=== PATIENT | female | born 1930 | race African-American/Black ===

== ENCOUNTER 2017-03-26 18:51 | Inpatient (IN) | payer MEDICARE, OTHER ==
[~2017-03-26] VITALS: Ht 160 cm; Wt 49.4 kg
[~2017-03-26 18:51] MED LIST: AMLO10TA4 PO; Acetaminophen PO; CHOL10003 PO; CITA10TA8 PO; DIVA250T6 PO; DIVA500T17 PO; DOCU-109 PO; ESTR30CR VG; HYDR-971 PO; LATA2.5D3 OP; LEVE250T30 PO; LOPE1TAB4 PO; LOPE2TAB56 PO; MIRT15TA2 PO; MORP20SO PO; MULT-114 PO; OMEP20CA9 PO; ONDA4TAB10 PO; OXYC5TAB88 PO; POLY17PO29 PO; POTA10TA12 PO; PROAIR HFA8.5 GM IH; WARF2TAB7 PO
[2017-03-26] MEDS ORDERED: POTASSIUM CL 40MEQ IN 0.9%NACL 1,000 ML IV ONE (19:30)
[2017-03-26 20:08] LABS: BILIRUBIN,URINE NEGATIVE (NEG); GLUCOSE,URINE NEGATIVE (NEG); NITRITE,URINE POSITIVE (NEG); PH,URINE 8.5; PROTEIN,URINE 100 mg/dL (NEG-TRACE); UROBILINOGEN,URINE 0.2 mg/dL (0.2 mg/dL)
[2017-03-26 20:15] LABS: BACTERIA,URINE MANY /HPF (0-FEW); RBC,URINE 0 /HPF (0-2)
[2017-03-26 20:22] LABS: BASO % 0 % (0-3); EOS % 2 % (0-3); HEMATOCRIT 41.4 % (36.0-47.0); HEMOGLOBIN 13.2 g/dL (12.0-15.5); LYMPH # 1.8 x10^3/uL (1.0-4.8); LYMPH % 15 % (24-48); MEAN CORPUSCULAR HEMOGLOBIN 30 pg (25-35); MEAN CORPUSCULAR HGB CONC 32 g/dL (31-37); MEAN CORPUSCULAR VOLUME 95 fL (79-100); MONO % 8 % (0-9); NEUT % 75 % (31-73); PLATELET COUNT 412 x10^3/uL (140-400); RED BLOOD COUNT 4.37 x10^6/uL (3.50-5.40); RED CELL DISTRIBUTION WIDTH 18.2 % (11.5-14.5); WHITE BLOOD COUNT 12.5 x10^3/uL (4.0-11.0)
[2017-03-26 20:44] LABS: ALBUMIN 2.2 g/dL (3.4-5.0); ALBUMIN/GLOBULIN RATIO 0.4 (1.0-1.7); CALCIUM 9.2 mg/dL (8.5-10.1); CREATININE 1.6 mg/dL (0.6-1.0); GFR 36.8; TOTAL BILIRUBIN 0.2 mg/dL (0.2-1.0); TOTAL PROTEIN 7.3 g/dL (6.4-8.2)
[2017-03-26 20:48] LABS: POTASSIUM 2.9 mmol/L (3.5-5.1)
[2017-03-26] MEDS ORDERED: IV NORMAL SALINE 1000ML BAG 1,000 ML IV ONE (21:15)
[2017-03-26] MEDS: IV NORMAL SALINE 1000ML BAG 1,000 ML IV SCH (22:17)
[2017-03-26] MEDS ORDERED: ONDANSETRON PF 4 MG/2 ML VIAL. IV PRN (22:30)
[2017-03-26] MEDS ORDERED: ACETAMINOPHEN 325 MG TABLET. PO PRN (22:30)
--- NOTE | 2017-03-26 22:36 | PHYS DOC ---
Past Medical History Past Medical History: Anxiety, Asthma, Constipation, Dementia, GERD Past Surgical History: Other Additional Past Surgical Histo: UNKNOWN Alcohol Use: None Drug Use: None Adult General Chief Complaint Chief Complaint: ABNORMAL LABS HPI HPI Patient is a 86 year old female who was sent in by the nursing facility secondary to abnormal labs. Patient was sent in secondary to an elevated sodium and low potassium level. No other complaints were identified by the nursing facility. Patient has a history of dementia and is not communicative. Remainder of the patient's history and physical exam is unobtainable secondary to the patient's medical condition and dementia. Patient does not follow commands, does not answer questions, and offers no further information regarding her care. Review of systems: Unobtainable secondary to the patient's medical condition. Physical exam Constitutional: Cachectic contracted no acute distress, non-toxic appearance. HENT: Normocephalic, atraumatic, dry mucous membranes Eyes: PERRLA, EOMI, conjunctiva normal, no discharge. Neck: Normal range of motion, no tenderness, supple, no stridor. Cardiovascular:Heart rate regular rhythm, Lungs & Thorax: Bilateral breath sounds clear to auscultation Abdomen: Bowel sounds normal, soft, no tenderness, no masses, no pulsatile masses. Skin: Warm, dry, Back: No tenderness Extremities: , no edema. Neurologic: Not to be negative Psychologic: Flat affect Assessment and plan This is an 86-year-old female who presents here today secondary to abnormal labs. Patient was found to be in acute renal failure with a significantly elevated BUN/creatinine level. Patient's sodium level was significantly elevated at 167. Patient's potassium level was low and will cry repletion. While in the ER the patient was given 2 L normal saline included with it or 40 mg once of potassium chloride. Patient also started IV Rocephin secondary to what appears to be infected urine. Cultures and lactic acid of also been obtained. Case has been discussed with Dr. curiel who agrees on the plan to admit the patient. Current Medications Current Medications Current Medications Medications (Trade) Dose Ordered Sig/Aidee Start Time Stop Time Status Last Admin Dose Admin Acetaminophen (Tylenol) 650 mg PRN Q4HRS PRN 03/26/17 22:30 03/27/17 22:29 Ceftriaxone Sodium 50 ml @ 100 mls/hr 1X ONCE 03/26/17 21:15 03/26/17 21:44 DC 03/26/17 22:01 100 MLS/HR Ondansetron HCl (Zofran) 4 mg PRN Q8HRS PRN 03/26/17 22:30 03/27/17 22:29 Potassium Chloride/Sodium Chloride 1,000 ml @ 250 mls/hr 1X ONCE 03/26/17 19:30 03/26/17 23:29 03/26/17 22:01 250 MLS/HR Sodium Chloride 1,000 ml @ 100 mls/hr Q10H 03/26/17 22:17 03/27/17 22:16 Allergies Allergies Allergies Coded Allergies Type Severity Reaction Last Updated Verified I S O L A T I O N *CONTACT* Allergy Unknown 04/01/15 Yes No Known Medication Allergies Allergy Unknown 04/01/15 Yes Current Patient Data Vital Signs Vital Signs Date Time Temp Pulse Resp B/P (MAP) Pulse Ox O2 Delivery O2 Flow Rate FiO2 03/26/17 21:56 100 135/90 (105) 100 Room Air 03/26/17 18:58 97.8 22 97.8 Lab Values Laboratory Tests Test 03/26/17 19:55 03/26/17 20:15 Urine Collection Type Unknown Urine Color Yellow Urine Clarity Turbid Urine pH 8.5 Urine Specific [place] 1.020 Urine Protein 100 mg/dL (NEG-TRACE) Urine Glucose (UA) Negative mg/dL (NEG) Urine Ketones (Stick) Negative mg/dL (NEG) Urine Blood Small (NEG) Urine Nitrite Positive (NEG) Urine Bilirubin Negative (NEG) Urine Urobilinogen Dipstick 0.2 mg/dL (0.2 mg/dL) Urine Leukocyte Esterase Large (NEG) Urine RBC 0 /HPF (0-2) Urine WBC 11-20 /HPF (0-4) Urine Amorphous Sediment Present /HPF Urine Bacteria Many /HPF (0-FEW) White Blood Count 12.5 x10^3/uL (4.0-11.0) H Red Blood Count 4.37 x10^6/uL (3.50-5.40) Hemoglobin 13.2 g/dL (12.0-15.5) Hematocrit 41.4 % (36.0-47.0) Mean Corpuscular Volume 95 fL (79-100) Mean Corpuscular Hemoglobin 30 pg (25-35) Mean Corpuscular Hemoglobin Concent 32 g/dL (31-37) Red Cell Distribution Width 18.2 % (11.5-14.5) H Platelet Count 412 x10^3/uL (140-400) H Neutrophils (%) (Auto) 75 % (31-73) H Lymphocytes (%) (Auto) 15 % (24-48) L Monocytes (%) (Auto) 8 % (0-9) Eosinophils (%) (Auto) 2 % (0-3) Basophils (%) (Auto) 0 % (0-3) Neutrophils # (Auto) 9.4 x10^3uL (1.8-7.7) H Lymphocytes # (Auto) 1.8 x10^3/uL (1.0-4.8) Monocytes # (Auto) 1.0 x10^3/uL (0.0-1.1) Eosinophils # (Auto) 0.2 x10^3/uL (0.0-0.7) Basophils # (Auto) 0.0 x10^3/uL (0.0-0.2) Sodium Level 167 mmol/L (136-145) *H Potassium Level 2.9 mmol/L (3.5-5.1) *L Chloride Level 128 mmol/L (98-107) H Carbon Dioxide Level 23 mmol/L (21-32) Anion Gap 16 (6-14) H Blood Urea Nitrogen 76 mg/dL (7-20) H Creatinine 1.6 mg/dL (0.6-1.0) H Estimated GFR (Cockcroft-Gault) 36.8 BUN/Creatinine Ratio 48 (6-20) H Glucose Level 116 mg/dL (70-99) H Calcium Level 9.2 mg/dL (8.5-10.1) Total Bilirubin 0.2 mg/dL (0.2-1.0) Aspartate Amino Transferase (AST) 19 U/L (15-37) Alanine Aminotransferase (ALT) 13 U/L (14-59) L Alkaline Phosphatase 94 U/L (46-116) Total Protein 7.3 g/dL (6.4-8.2) Albumin 2.2 g/dL (3.4-5.0) L Albumin/Globulin Ratio 0.4 (1.0-1.7) L Laboratory Tests 03/26/17 20:15 Laboratory Tests 03/26/17 20:15 EKG EKG [] Radiology/Procedures Radiology/Procedures [] Course & Med Decision Making Course & Med Decision Making Pertinent Labs and Imaging studies reviewed. (See chart for details) [] Dragon Disclaimer Dragon Disclaimer This electronic medical record was generated, in whole or in part, using a voice recognition dictation system. Departure Departure Impression: Primary Impression: UTI (urinary tract infection) Additional Impressions: Altered mental status Sepsis Hypernatremia Hypokalemia Disposition: 09 ADMITTED INPATIENT Admitting Physician: Sary Ramesh Condition: GUARDED Referrals: SARY RAMESH MD (PCP) Problem Qualifiers NIVIA DEJESUS MD Mar 26, 2017 22:36
[2017-03-27] VITALS (7 sets, daily range): BP systolic 78–147; BP diastolic 64–90
[2017-03-27] MEDS ORDERED: IV NORMAL SALINE 1000ML BAG 500 ML IV ONE (01:15)
[2017-03-27] MEDS ORDERED: NORMAL SALINE IV ONE (01:30)
[2017-03-27] MEDS ORDERED: PNEUMOCOCCAL VAX SCREEN BY RX. MC PRN (02:30)
[2017-03-27] MEDS: IV NORMAL SALINE 1000ML BAG 1,000 ML IV SCH ×2 (05:47→12:41)
--- NOTE | 2017-03-27 09:05 | RAD ---
Portable chest, 03/26/2017: History: Hypernatremia Comparison is made to a study from 03/29/2015. The patient is rotated to the right. The heart size and pulmonary vascularity are normal. There is tortuosity of the thoracic aorta. No pulmonary infiltrates are seen. There is a small nodule projected over the left lower chest laterally. This may be a pulmonary nodule or a nipple shadow. There is no evidence of pleural fluid. IMPRESSION: 1. Possible left basilar pulmonary nodule. Follow-up PA and lateral chest radiographs with nipple markers or CT scanning is suggested. 2. No acute cardiopulmonary abnormality is detected. Note: The findings were called to personnel in the [facility] ER at 9:00 AM on 03/27/2017.
--- NOTE | 2017-03-27 09:07 | EKG ---
[facility] [address] [place] [address] Test Date: 2017-03-27 Test Time: 08:40:18 Pat Name: BYRON GRULLON Department: Room: 578 1 Gender: F Film Waxer: LYNDON : 1930 Requested By: CHERRI LAURENT Order Number: [id number] Reading MD: Jerald Quintero MD Measurements Intervals Girdler Rate: 83 P: WV: QRS: 36 QRSD: 72 T: 33 QT: 394 QTc: 464 Interpretive Statements SUSPECT SINUS RHYTHM NON-SPECIFIC ST/T CHANGES Electronically Signed On 03-27-2017 15:32:51 RECOVERY COLLECTOR by Jerald Quintero MD
[2017-03-27] MEDS ORDERED: POTASSIUM CHLORIDE 40 MEQ in IV NORMAL SALINE 1000ML BAG 1,000 ML IV SCH (09:15)
[2017-03-27] MEDS ORDERED: ACETAMINOPHEN 325 MG TABLET. PO PRN (09:15)
[2017-03-27] MEDS ORDERED: ONDANSETRON PF 4 MG/2 ML VIAL. IV PRN (09:15)
--- NOTE | 2017-03-27 09:27 | PDOC1 ---
MYA TOVAR INTERNAL SECURITY MANAGER 03/27/17 0926: HISTORY AND PHYSICAL Chief Complaint Chief Complaint This 86 year old female has been admitted with a chief complaint of altered mental status. She is a poor historian therefore staff at [facility] was contacted for HPI. The nurse reports Jillian had been having altered mental status and weakness since Sunday. She was given IVF and her mental status improved to baseline and she began eating/drinking. Once the fluids stopped her MS would again decline and she would stop eating. Labs were obtained at the facility with Na 164, K 3.6, BUN 64, Cr 1.2, and WBC 11.1. She was transported to [facility] ED for evaluation. Labs in the ED: Na 167, K 2.9, BUN 76, Cr 1.6, LA 2.3 and UA + Nitrite. IVF were given per sepsis protocol and potassium replacement in the IVF. The last LA was 2.1. Rocephin IV was initiated for the UTI. She is admitted to a medical surgical floor for ongoing evaluation and treatment. Problem List Problems Medical Problems: (1) Altered mental status Status: Acute (2) Hypernatremia Status: Acute (3) Hypokalemia Status: Acute (4) Sepsis Status: Acute (5) UTI (urinary tract infection) Status: Acute Past Medical History Cardiovascular: HTN, Hyperlipidemia, Other (PVD ) Pulmonary: COPD CENTRAL NERVOUS SYSTEM: Dementia (Alzhiemer), Periperal neuropathy, Seizure GI: Constipation, GERD Psych: Bipolar, Depression Musculoskeletal: Osteoarthritis ENT: Other (glaucoma ) Renal/: Chronic renal insuff (CKD II ), Other (chronic keys for urinary retention ) Endocrine: Other (chronic moderate PCL malnutrition ) Past Surgical History Past Surgical History: Hysterectomy Past Family History [facility] resides at [facility]. No h/o tobacco, ETOH, or illicit drug use. Past Social History [facility] resides at [facility]. No h/o tobacco, ETOH, or illicit drug use. Review of Symptoms Review of Symptoms A 14 point ROS was completed with the following noted as positive: unable to obtain Other systems reviewed and negative. Medications Medications reviewed and reconciled. Allergy Allergies Coded Allergies Type Severity Reaction Last Updated Verified I S O L A T I O N *CONTACT* Allergy Unknown 04/01/15 Yes No Known Medication Allergies Allergy Unknown 04/01/15 Yes Physical Exam Physical Exam General appearance - minimally responsive, ill appearing, and in no distress Mental Status - minimally responsive, will arouse to name Head - normal Chest - clear to auscultation, no wheezes, rales or rhonchi, symmetric air entry Heart - S1 and S2 normal Abdomen - soft, nontender, nondistended, BS+ Neurological - minimally responsove Musculoskeletal - no muscular tenderness noted Extremities - no pedal edema Skin - warm and dry VTE Prophylaxis Ordered VTE Prophylaxis Devices: Yes VTE Pharmacological Prophylaxi: No Assessment Labs Laboratory Tests Test 03/26/17 19:55 03/26/17 20:15 03/26/17 22:15 03/27/17 05:00 Urine Collection Type Unknown Urine Color Yellow Urine Clarity Turbid Urine pH 8.5 Urine Specific [place] 1.020 Urine Protein 100 mg/dL (NEG-TRACE) Urine Glucose (UA) Negative mg/dL (NEG) Urine Ketones (Stick) Negative mg/dL (NEG) Urine Blood Small (NEG) Urine Nitrite Positive (NEG) Urine Bilirubin Negative (NEG) Urine Urobilinogen Dipstick 0.2 mg/dL (0.2 mg/dL) Urine Leukocyte Esterase Large (NEG) Urine RBC 0 /HPF (0-2) Urine WBC 11-20 /HPF (0-4) Urine Amorphous Sediment Present /HPF Urine Bacteria Many /HPF (0-FEW) White Blood Count 12.5 x10^3/uL (4.0-11.0) Red Blood Count 4.37 x10^6/uL (3.50-5.40) Hemoglobin 13.2 g/dL (12.0-15.5) Hematocrit 41.4 % (36.0-47.0) Mean Corpuscular Volume 95 fL (79-100) Mean Corpuscular Hemoglobin 30 pg (25-35) Mean Corpuscular Hemoglobin Concent 32 g/dL (31-37) Red Cell Distribution Width 18.2 % (11.5-14.5) Platelet Count 412 x10^3/uL (140-400) Neutrophils (%) (Auto) 75 % (31-73) Lymphocytes (%) (Auto) 15 % (24-48) Monocytes (%) (Auto) 8 % (0-9) Eosinophils (%) (Auto) 2 % (0-3) Basophils (%) (Auto) 0 % (0-3) Neutrophils # (Auto) 9.4 x10^3uL (1.8-7.7) Lymphocytes # (Auto) 1.8 x10^3/uL (1.0-4.8) Monocytes # (Auto) 1.0 x10^3/uL (0.0-1.1) Eosinophils # (Auto) 0.2 x10^3/uL (0.0-0.7) Basophils # (Auto) 0.0 x10^3/uL (0.0-0.2) Sodium Level 167 mmol/L (136-145) Potassium Level 2.9 mmol/L (3.5-5.1) Chloride Level 128 mmol/L (98-107) Carbon Dioxide Level 23 mmol/L (21-32) Anion Gap 16 (6-14) Blood Urea Nitrogen 76 mg/dL (7-20) Creatinine 1.6 mg/dL (0.6-1.0) Estimated GFR (Cockcroft-Gault) 36.8 BUN/Creatinine Ratio 48 (6-20) Glucose Level 116 mg/dL (70-99) Calcium Level 9.2 mg/dL (8.5-10.1) Total Bilirubin 0.2 mg/dL (0.2-1.0) Aspartate Amino Transf (AST/SGOT) 19 U/L (15-37) Alanine Aminotransferase (ALT/SGPT) 13 U/L (14-59) Alkaline Phosphatase 94 U/L (46-116) Total Protein 7.3 g/dL (6.4-8.2) Albumin 2.2 g/dL (3.4-5.0) Albumin/Globulin Ratio 0.4 (1.0-1.7) Lactic Acid Level 2.3 mmol/L (0.4-2.0) 2.1 mmol/L (0.4-2.0) Laboratory Tests Test 03/26/17 19:55 03/26/17 20:15 03/26/17 22:15 03/27/17 05:00 Urine Collection Type Unknown Urine Color Yellow Urine Clarity Turbid Urine pH 8.5 Urine Specific [place] 1.020 Urine Protein 100 mg/dL (NEG-TRACE) Urine Glucose (UA) Negative mg/dL (NEG) Urine Ketones (Stick) Negative mg/dL (NEG) Urine Blood Small (NEG) Urine Nitrite Positive (NEG) Urine Bilirubin Negative (NEG) Urine Urobilinogen Dipstick 0.2 mg/dL (0.2 mg/dL) Urine Leukocyte Esterase Large (NEG) Urine RBC 0 /HPF (0-2) Urine WBC 11-20 /HPF (0-4) Urine Amorphous Sediment Present /HPF Urine Bacteria Many /HPF (0-FEW) White Blood Count 12.5 x10^3/uL (4.0-11.0) Red Blood Count 4.37 x10^6/uL (3.50-5.40) Hemoglobin 13.2 g/dL (12.0-15.5) Hematocrit 41.4 % (36.0-47.0) Mean Corpuscular Volume 95 fL (79-100) Mean Corpuscular Hemoglobin 30 pg (25-35) Mean Corpuscular Hemoglobin Concent 32 g/dL (31-37) Red Cell Distribution Width 18.2 % (11.5-14.5) Platelet Count 412 x10^3/uL (140-400) Neutrophils (%) (Auto) 75 % (31-73) Lymphocytes (%) (Auto) 15 % (24-48) Monocytes (%) (Auto) 8 % (0-9) Eosinophils (%) (Auto) 2 % (0-3) Basophils (%) (Auto) 0 % (0-3) Neutrophils # (Auto) 9.4 x10^3uL (1.8-7.7) Lymphocytes # (Auto) 1.8 x10^3/uL (1.0-4.8) Monocytes # (Auto) 1.0 x10^3/uL (0.0-1.1) Eosinophils # (Auto) 0.2 x10^3/uL (0.0-0.7) Basophils # (Auto) 0.0 x10^3/uL (0.0-0.2) Sodium Level 167 mmol/L (136-145) Potassium Level 2.9 mmol/L (3.5-5.1) Chloride Level 128 mmol/L (98-107) Carbon Dioxide Level 23 mmol/L (21-32) Anion Gap 16 (6-14) Blood Urea Nitrogen 76 mg/dL (7-20) Creatinine 1.6 mg/dL (0.6-1.0) Estimated GFR (Cockcroft-Gault) 36.8 BUN/Creatinine Ratio 48 (6-20) Glucose Level 116 mg/dL (70-99) Calcium Level 9.2 mg/dL (8.5-10.1) Total Bilirubin 0.2 mg/dL (0.2-1.0) Aspartate Amino Transf (AST/SGOT) 19 U/L (15-37) Alanine Aminotransferase (ALT/SGPT) 13 U/L (14-59) Alkaline Phosphatase 94 U/L (46-116) Total Protein 7.3 g/dL (6.4-8.2) Albumin 2.2 g/dL (3.4-5.0) Albumin/Globulin Ratio 0.4 (1.0-1.7) Lactic Acid Level 2.3 mmol/L (0.4-2.0) 2.1 mmol/L (0.4-2.0) Plan Plan 1. UTI complicated/sepsis with h/o chronic keys for urine retention 2. acute metabolic encephalopathy with underlying Alzheimer dementia 3. ARF JOCELYNE VMN dehydration with underlying CKD II 4. acute hypernatremia 5. acute hypokalemia 6. HTN 7. Alzheimer dementia 8. urine retention with chronic indwelling keys 9. COPD 10. chronic moderate malnutrition 11. seizure disorder 12. GERD 13. Peripheral neuropathy 14. PVD 15. CKD II 16. OA generalized 17. anemia chronic disease 18. depression 19. hyperlipidemia 20. chronic constipation 21 h/o traumatic comminuted L femoral intratrochanteric neck fracture post traumatic fall 2014 no surgical intervention 22. severe PCL malnutrition with underlying chronic PCL malnutrition 23. severe weakness and debility 24. dysphagia with Regular diet mechanical soft chopped texture thin liquids PLAN UTI/sepsis - Admit WBC 12.5 - LA 2.3 decreased to 2.1 - Rocephin IV daily - ID consult - CBC pending ARF - IV NS in ED - decreased to NS 100cc/hr acute hypernatremia/hypokalemia - Admit NA 167 K 2.9 - NS IV - 40K per IVF x 1 - BMP pending - current IV NS 100cc/hr and 40KCL added - nephrology consult acute encephalopathy due to ARF/UTI chronic urine retention with chronic indwell keys - continue -changed in ER malnutrition - clear liquids - advance diet as tolerated seizure - keppra and depakote changed to IV. DVT/GI prophylaxis - SCD/CAITLIN Pepcid For more details regarding further plans, please refer to the orders. Medications obtained from [facility]- to be entered by staff and will restart oral meds as indicated SARY RAMESH MD 03/27/17 1134: HISTORY AND PHYSICAL Plan Plan Confused,non verbal. D/w . The patient was seen and examined by me. Chart reviewed and plan of care formulated. Discussed with, reviewed and agree with PHARMACY CUSTOMER CARE SPECIALIST's notes, plan of care and orders with modifications as necessary. For more details regarding further plans, please refer to the orders. MYA TOVAR APRN Mar 27, 2017 09:26 SARY RAMESH MD Mar 27, 2017 11:34
[2017-03-27] MEDS ORDERED: POTASSIUM CL 40MEQ IN 0.9%NACL 1,000 ML IV SCH (09:30)
[2017-03-27 10:16] LABS: BASO % 0 % (0-3); CREATININE 1.1 mg/dL (0.6-1.0); EOS % 0 % (0-3); GFR 56.7; HEMATOCRIT 34.4 % (36.0-47.0); HEMOGLOBIN 10.9 g/dL (12.0-15.5); LYMPH # 1.9 x10^3/uL (1.0-4.8); LYMPH % 16 % (24-48); MAGNESIUM 2.4 mg/dL (1.8-2.4); MEAN CORPUSCULAR HEMOGLOBIN 31 pg (25-35); MEAN CORPUSCULAR HGB CONC 32 g/dL (31-37); MEAN CORPUSCULAR VOLUME 96 fL (79-100); MONO % 12 % (0-9); NEUT % 71 % (31-73); PLATELET COUNT 306 x10^3/uL (140-400); POTASSIUM 3.2 mmol/L (3.5-5.1); RED BLOOD COUNT 3.58 x10^6/uL (3.50-5.40); RED CELL DISTRIBUTION WIDTH 18.4 % (11.5-14.5); WHITE BLOOD COUNT 11.8 x10^3/uL (4.0-11.0)
--- NOTE | 2017-03-27 11:27 | PDOC ---
Infectious Disease Note ROS ROS Vital Sign Vital Signs Vital Signs Date Time Temp Pulse Resp B/P (MAP) Pulse Ox O2 Delivery O2 Flow Rate FiO2 03/27/17 07:00 97.8 80 18 78/ 97 Room Air 97.8 Labs Lab Laboratory Tests Test 03/26/17 19:55 03/26/17 20:15 03/26/17 22:15 03/27/17 05:00 Urine Collection Type Unknown Urine Color Yellow Urine Clarity Turbid Urine pH 8.5 Urine Specific [place] 1.020 Urine Protein 100 mg/dL (NEG-TRACE) Urine Glucose (UA) Negative mg/dL (NEG) Urine Ketones (Stick) Negative mg/dL (NEG) Urine Blood Small (NEG) Urine Nitrite Positive (NEG) Urine Bilirubin Negative (NEG) Urine Urobilinogen Dipstick 0.2 mg/dL (0.2 mg/dL) Urine Leukocyte Esterase Large (NEG) Urine RBC 0 /HPF (0-2) Urine WBC 11-20 /HPF (0-4) Urine Amorphous Sediment Present /HPF Urine Bacteria Many /HPF (0-FEW) White Blood Count 12.5 x10^3/uL (4.0-11.0) Red Blood Count 4.37 x10^6/uL (3.50-5.40) Hemoglobin 13.2 g/dL (12.0-15.5) Hematocrit 41.4 % (36.0-47.0) Mean Corpuscular Volume 95 fL (79-100) Mean Corpuscular Hemoglobin 30 pg (25-35) Mean Corpuscular Hemoglobin Concent 32 g/dL (31-37) Red Cell Distribution Width 18.2 % (11.5-14.5) Platelet Count 412 x10^3/uL (140-400) Neutrophils (%) (Auto) 75 % (31-73) Lymphocytes (%) (Auto) 15 % (24-48) Monocytes (%) (Auto) 8 % (0-9) Eosinophils (%) (Auto) 2 % (0-3) Basophils (%) (Auto) 0 % (0-3) Neutrophils # (Auto) 9.4 x10^3uL (1.8-7.7) Lymphocytes # (Auto) 1.8 x10^3/uL (1.0-4.8) Monocytes # (Auto) 1.0 x10^3/uL (0.0-1.1) Eosinophils # (Auto) 0.2 x10^3/uL (0.0-0.7) Basophils # (Auto) 0.0 x10^3/uL (0.0-0.2) Sodium Level 167 mmol/L (136-145) Potassium Level 2.9 mmol/L (3.5-5.1) Chloride Level 128 mmol/L (98-107) Carbon Dioxide Level 23 mmol/L (21-32) Anion Gap 16 (6-14) Blood Urea Nitrogen 76 mg/dL (7-20) Creatinine 1.6 mg/dL (0.6-1.0) Estimated GFR (Cockcroft-Gault) 36.8 BUN/Creatinine Ratio 48 (6-20) Glucose Level 116 mg/dL (70-99) Calcium Level 9.2 mg/dL (8.5-10.1) Total Bilirubin 0.2 mg/dL (0.2-1.0) Aspartate Amino Transf (AST/SGOT) 19 U/L (15-37) Alanine Aminotransferase (ALT/SGPT) 13 U/L (14-59) Alkaline Phosphatase 94 U/L (46-116) Total Protein 7.3 g/dL (6.4-8.2) Albumin 2.2 g/dL (3.4-5.0) Albumin/Globulin Ratio 0.4 (1.0-1.7) Lactic Acid Level 2.3 mmol/L (0.4-2.0) 2.1 mmol/L (0.4-2.0) Test 03/27/17 09:40 White Blood Count 11.8 x10^3/uL (4.0-11.0) Red Blood Count 3.58 x10^6/uL (3.50-5.40) Hemoglobin 10.9 g/dL (12.0-15.5) Hematocrit 34.4 % (36.0-47.0) Mean Corpuscular Volume 96 fL (79-100) Mean Corpuscular Hemoglobin 31 pg (25-35) Mean Corpuscular Hemoglobin Concent 32 g/dL (31-37) Red Cell Distribution Width 18.4 % (11.5-14.5) Platelet Count 306 x10^3/uL (140-400) Neutrophils (%) (Auto) 71 % (31-73) Lymphocytes (%) (Auto) 16 % (24-48) Monocytes (%) (Auto) 12 % (0-9) Eosinophils (%) (Auto) 0 % (0-3) Basophils (%) (Auto) 0 % (0-3) Neutrophils # (Auto) 8.4 x10^3uL (1.8-7.7) Lymphocytes # (Auto) 1.9 x10^3/uL (1.0-4.8) Monocytes # (Auto) 1.5 x10^3/uL (0.0-1.1) Eosinophils # (Auto) 0.0 x10^3/uL (0.0-0.7) Basophils # (Auto) 0.0 x10^3/uL (0.0-0.2) Sodium Level 171 mmol/L (136-145) Potassium Level 3.2 mmol/L (3.5-5.1) Chloride Level 139 mmol/L (98-107) Carbon Dioxide Level 21 mmol/L (21-32) Anion Gap 11 (6-14) Blood Urea Nitrogen 62 mg/dL (7-20) Creatinine 1.1 mg/dL (0.6-1.0) Estimated GFR (Cockcroft-Gault) 56.7 Glucose Level 81 mg/dL (70-99) Calcium Level 8.0 mg/dL (8.5-10.1) Magnesium Level 2.4 mg/dL (1.8-2.4) Objective Assessment Complicated UTI - POA 03/26 Leukocytosis Acute Encephalopathy JOCELYNE Hypernatremia H/o seizures H/o MRSA Plan Plan of Care Change to Zosyn F/u labs and cults D/w / Tj Thank you # [phone] KELI SALINAS MD Mar 27, 2017 11:27
[2017-03-27] MEDS: FAMOTIDINE 20 MG/2 ML VIAL IVP SCH (11:34)
--- NOTE | 2017-03-27 11:58 | PDOC2 ---
CONSULT Date of Consult Date of Consult DATE: 03/27/17 TIME: 11:53 Reason for Consult Reason for Consult: RENAL FAILURE Referring Physician Referring Physician: GADIEL Identification/Chief Complaint Chief Complaint CONFUSION Problems: Source Source: Chart review History of Present Illness Reason for Visit: THIS IS AN 86 YR OLD WITH WORSENING CONFUSION. SHE HAS NOT BEEN EATING WELL. SHE IS AT HER NH AND TRANSFERRED HERE FOR THIS. SHE IS NOTED TO HAVE JOCELYNE AND HYPERNATREMIA ALONG WITH AN UTI AND POSSIBLE SEPSIS. SHE HAS A HX OF URINARY RETENTION AND CHRONIC KEYS NEED. SHE CANNOT GIVE ANY HX. SHE HAS ACUTE CONFUSION ATOP HER UNDERLYING DEMENTIA. NO CKD NOTED IN OLD RECORDS. CR IS 1.6 Past Medical History Cardiovascular: HTN, Hyperlipidemia, Other (PVD ) Pulmonary: COPD CENTRAL NERVOUS SYSTEM: Dementia (Alzhiemer), Periperal neuropathy, Seizure GI: Constipation, GERD Psych: Bipolar, Depression Musculoskeletal: Osteoarthritis ENT: Other (glaucoma ) Renal/: Other (chronic keys for urinary retention ) Endocrine: Other (chronic moderate PCL malnutrition ) Past Surgical History Past Surgical History: Hysterectomy Current Problem List Problem List Problems Medical Problems: (1) Altered mental status Status: Acute (2) Hypernatremia Status: Acute (3) Hypokalemia Status: Acute (4) Sepsis Status: Acute (5) UTI (urinary tract infection) Status: Acute Current Medications Current Medications Current Medications Potassium Chloride/Sodium Chloride 1,000 ml @ 250 mls/hr 1X ONCE IV Last administered on 03/26/17 22:01; Start 03/26/17 at 19:30; Stop 03/26/17 at 23 :29; Status DC Sodium Chloride 1,000 ml @ 1,000 mls/hr 1X ONCE IV Last administered on 03/26 22:01; Start 03/26/17 at 21:15; Stop 03/26/17 at 22:14; Status DC Ceftriaxone Sodium 50 ml @ 100 mls/hr 1X ONCE IV Last administered on 22:01; Start 03/26/17 at 21:15; Stop 03/26/17 at 21:44; Status DC Ondansetron HCl (Zofran) 4 mg PRN Q8HRS PRN IV NAUSEA/VOMITING; Start at 22:30; Stop 03/27/17 at 09:15; Status DC Sodium Chloride 1,000 ml @ 100 mls/hr Q10H IV Last administered on 03/27/17 05:47; Start 03/26/17 at 22:17; Stop 03/27/17 at 09:15; Status DC Acetaminophen (Tylenol) 650 mg PRN Q4HRS PRN PO FEVER; Start 03/26/17 at 22:30 ; Stop 03/27/17 at 09:15; Status DC Sodium Chloride 500 ml @ 390 mls/hr 1X ONCE IV ; Start 03/27/17 at 01:15; Stop 03/27/17 at 02:31; Status DC Sodium Chloride 390 ml @ 390 mls/hr 1X ONCE IV Last administered on 01:12; Start 03/27/17 at 01:30; Stop 03/27/17 at 02:29; Status DC Pneumococcal Polyvalent Vaccine (Do NOT chart on this placeholder) 1 each PRN DAILY PRN [facility] UNABLE TO RESPOND; Start 03/27/17 at 02:30 Potassium Chloride 40 meq/ Sodium Chloride 1,020 ml @ 100 mls/hr [id number] IV ; Start 03/27/17 at 09:15; Status UNV Ondansetron HCl (Zofran) 4 mg PRN Q8HRS PRN IV NAUSEA/VOMITING; Start at 09:15 Acetaminophen (Tylenol) 650 mg PRN Q4HRS PRN PO FEVER; Start 03/27/17 at 09:15 Potassium Chloride/Sodium Chloride 1,000 ml @ 100 mls/hr Q10H IV Last administered on 03/27/17 11:35; Start 03/27/17 at 09:30 Levetiracetam 250 mg/Sodium Chloride 102.5 ml @ 420 mls/hr Q12HR IV Last administered on 03/27/17 10:15; Start 03/27/17 at 10:30 Valproic Acid 1000 mg/Sodium Chloride 60 ml @ 55 mls/hr Q6HRS IV ; Start at 12:00 Famotidine (Pepcid Vial) 20 mg DAILY IVP Last administered on 03/27/17 11:34 ; Start 03/27/17 at 10:30 Latanoprost (Xalatan) 1 drop QHS OU ; Start 03/27/17 at 21:00 Piperacillin Sod/ Tazobactam Sod 2.25 gm/Dextrose 50 ml @ 100 mls/hr Q6HRS IV ; Start 03/27/17 at 12:00; Status UNV Piperacillin Sod/ Tazobactam Sod (Zosyn) 2.25 gm Q6HRS IVP ; Start 03/27/17 at 12:00 Active Scripts Active Omeprazole 20 Mg Capsule.dr 20 Mg PO DAILY Vitamin D3 (Cholecalciferol (Vitamin D3)) 1,000 Unit Tablet 1,000 Unit PO DAILY [Acetaminophen] 500 MG Tablet 500 Mg PO TID Warfarin Sodium 2 Mg Tablet 1 Tab PO DAILY Reported Keppra (Levetiracetam) 250 Mg Tablet 250 Mg PO BID Anti-Diarrhea (Loperamide Hcl) 2 Mg Tablet 2 Mg PO PRN DAILY PRN Imodium Multi-Symptom Rel Cplt (Loperamide Hcl/Simethicone) 1 Each Tablet 1 Each PO Divalproex Sodium 250 Mg Tablet.dr 250 Mg PO DAILY Divalproex Sodium Er (Divalproex Sodium) 500 Mg Tab.er.24h 2 Tab PO QHS Colace (Docusate Sodium) 100 Mg Capsule 1 Cap PO DAILY Celexa (Citalopram Hydrobromide) 10 Mg Tablet 1 Tab PO DAILY [place] 5-325 Tablet (Acetaminophen/Hydrocodone Bitart) 1 Each Tablet 1 Tab PO PRN Q12HR PRN Multivitamins With Minerals (Multivitamin With Minerals) 1 Each Tablet 1 Each PO DAILY Morphine Sulfate 20 Mg/5 Ml Solution 1 Ml PO PRN Q1HR PRN Morphine Sulfate 20 Mg/5 Ml Solution 0.75 Ml PO PRN Q1HR PRN Morphine Sulfate 20 Mg/5 Ml Solution 0.5 Ml PO PRN Q1HR PRN Morphine Sulfate 20 Mg/5 Ml Solution 0.25 Ml PO PRN Q1HR PRN Miralax (Polyethylene Glycol 3350) 17 Gm Powd.pack 1 Packet PO DAILY Latanoprost 2.5 Ml Drops 1 Drop OP HS Remeron (Mirtazapine) 15 Mg Tab.rapdis 15 Mg PO DAILY 1/2 tab Proair Hfa Inhaler (Albuterol Sulfate) 8.5 Gm Hfa.aer.ad 2 Puff IH BID Premarin (Estrogens, Conjugated) 30 Gm Cream.appl 1 Kyle VG QTH Premarin (Estrogens, Conjugated) 30 Gm Cream.appl 1 Kyle VG QTU Potassium Chloride 10 Meq Tablet.er 1 Tab PO DAILY Omeprazole 20 Mg Capsule.dr 20 Mg PO DAILY Norvasc (Amlodipine Besylate) 10 Mg Tablet 10 Mg PO DAILY [place] 5-325 Tablet (Acetaminophen/Hydrocodone Bitart) 1 Each Tablet 1 Tab PO QID Zofran Odt (Ondansetron) 4 Mg Tab.rapdis 4 Mg PO QIDPRN PRN Allergies Allergies: Coded Allergies: I S O L A T I O N *CONTACT* (Verified Allergy, Unknown, 04/01/15) mrsa + No Known Medication Allergies (Verified Allergy, Unknown, 04/01/15) ROS Review of System UNABLE TO OBTAIN Physical Exam General: Alert, Cooperative, No acute distress HEENT: Atraumatic, EOMI, Other (DRY MUCOSA) Heart: Regular rate, Normal S1, Normal S2 Abdomen: Normal bowel sounds, Soft, No tenderness Extremities: No clubbing, Other (DIFFUSE MUSCLE ATROPHY) Skin: No rashes, No significant lesion Neuro: Other (UNABLE TO COOPERATE) Psych/Mental Status: Other (CONFUSED BUT NO ASYMMETRY) MUSCULOSKELETAL: No joint tenderness, No swelling, No muscular tenderness noted , Osteoarthritic changes both hands Vitals VITALS Vital Signs Date Time Temp Pulse Resp B/P (MAP) Pulse Ox O2 Delivery O2 Flow Rate FiO2 03/27/17 07:00 97.8 80 18 78/ 97 Room Air 97.8 Labs Labs Laboratory Tests Test 03/26/17 19:55 03/26/17 20:15 03/26/17 22:15 03/27/17 05:00 Urine Collection Type Unknown Urine Color Yellow Urine Clarity Turbid Urine pH 8.5 Urine Specific [place] 1.020 Urine Protein 100 mg/dL (NEG-TRACE) Urine Glucose (UA) Negative mg/dL (NEG) Urine Ketones (Stick) Negative mg/dL (NEG) Urine Blood Small (NEG) Urine Nitrite Positive (NEG) Urine Bilirubin Negative (NEG) Urine Urobilinogen Dipstick 0.2 mg/dL (0.2 mg/dL) Urine Leukocyte Esterase Large (NEG) Urine RBC 0 /HPF (0-2) Urine WBC 11-20 /HPF (0-4) Urine Amorphous Sediment Present /HPF Urine Bacteria Many /HPF (0-FEW) White Blood Count 12.5 x10^3/uL (4.0-11.0) Red Blood Count 4.37 x10^6/uL (3.50-5.40) Hemoglobin 13.2 g/dL (12.0-15.5) Hematocrit 41.4 % (36.0-47.0) Mean Corpuscular Volume 95 fL (79-100) Mean Corpuscular Hemoglobin 30 pg (25-35) Mean Corpuscular Hemoglobin Concent 32 g/dL (31-37) Red Cell Distribution Width 18.2 % (11.5-14.5) Platelet Count 412 x10^3/uL (140-400) Neutrophils (%) (Auto) 75 % (31-73) Lymphocytes (%) (Auto) 15 % (24-48) Monocytes (%) (Auto) 8 % (0-9) Eosinophils (%) (Auto) 2 % (0-3) Basophils (%) (Auto) 0 % (0-3) Neutrophils # (Auto) 9.4 x10^3uL (1.8-7.7) Lymphocytes # (Auto) 1.8 x10^3/uL (1.0-4.8) Monocytes # (Auto) 1.0 x10^3/uL (0.0-1.1) Eosinophils # (Auto) 0.2 x10^3/uL (0.0-0.7) Basophils # (Auto) 0.0 x10^3/uL (0.0-0.2) Sodium Level 167 mmol/L (136-145) Potassium Level 2.9 mmol/L (3.5-5.1) Chloride Level 128 mmol/L (98-107) Carbon Dioxide Level 23 mmol/L (21-32) Anion Gap 16 (6-14) Blood Urea Nitrogen 76 mg/dL (7-20) Creatinine 1.6 mg/dL (0.6-1.0) Estimated GFR (Cockcroft-Gault) 36.8 BUN/Creatinine Ratio 48 (6-20) Glucose Level 116 mg/dL (70-99) Calcium Level 9.2 mg/dL (8.5-10.1) Total Bilirubin 0.2 mg/dL (0.2-1.0) Aspartate Amino Transf (AST/SGOT) 19 U/L (15-37) Alanine Aminotransferase (ALT/SGPT) 13 U/L (14-59) Alkaline Phosphatase 94 U/L (46-116) Total Protein 7.3 g/dL (6.4-8.2) Albumin 2.2 g/dL (3.4-5.0) Albumin/Globulin Ratio 0.4 (1.0-1.7) Lactic Acid Level 2.3 mmol/L (0.4-2.0) 2.1 mmol/L (0.4-2.0) Test 03/27/17 09:40 White Blood Count 11.8 x10^3/uL (4.0-11.0) Red Blood Count 3.58 x10^6/uL (3.50-5.40) Hemoglobin 10.9 g/dL (12.0-15.5) Hematocrit 34.4 % (36.0-47.0) Mean Corpuscular Volume 96 fL (79-100) Mean Corpuscular Hemoglobin 31 pg (25-35) Mean Corpuscular Hemoglobin Concent 32 g/dL (31-37) Red Cell Distribution Width 18.4 % (11.5-14.5) Platelet Count 306 x10^3/uL (140-400) Neutrophils (%) (Auto) 71 % (31-73) Lymphocytes (%) (Auto) 16 % (24-48) Monocytes (%) (Auto) 12 % (0-9) Eosinophils (%) (Auto) 0 % (0-3) Basophils (%) (Auto) 0 % (0-3) Neutrophils # (Auto) 8.4 x10^3uL (1.8-7.7) Lymphocytes # (Auto) 1.9 x10^3/uL (1.0-4.8) Monocytes # (Auto) 1.5 x10^3/uL (0.0-1.1) Eosinophils # (Auto) 0.0 x10^3/uL (0.0-0.7) Basophils # (Auto) 0.0 x10^3/uL (0.0-0.2) Sodium Level 171 mmol/L (136-145) Potassium Level 3.2 mmol/L (3.5-5.1) Chloride Level 139 mmol/L (98-107) Carbon Dioxide Level 21 mmol/L (21-32) Anion Gap 11 (6-14) Blood Urea Nitrogen 62 mg/dL (7-20) Creatinine 1.1 mg/dL (0.6-1.0) Estimated GFR (Cockcroft-Gault) 56.7 Glucose Level 81 mg/dL (70-99) Calcium Level 8.0 mg/dL (8.5-10.1) Magnesium Level 2.4 mg/dL (1.8-2.4) Laboratory Tests Test 03/26/17 19:55 03/26/17 20:15 03/26/17 22:15 03/27/17 05:00 Urine Collection Type Unknown Urine Color Yellow Urine Clarity Turbid Urine pH 8.5 Urine Specific [place] 1.020 Urine Protein 100 mg/dL (NEG-TRACE) Urine Glucose (UA) Negative mg/dL (NEG) Urine Ketones (Stick) Negative mg/dL (NEG) Urine Blood Small (NEG) Urine Nitrite Positive (NEG) Urine Bilirubin Negative (NEG) Urine Urobilinogen Dipstick 0.2 mg/dL (0.2 mg/dL) Urine Leukocyte Esterase Large (NEG) Urine RBC 0 /HPF (0-2) Urine WBC 11-20 /HPF (0-4) Urine Amorphous Sediment Present /HPF Urine Bacteria Many /HPF (0-FEW) White Blood Count 12.5 x10^3/uL (4.0-11.0) Red Blood Count 4.37 x10^6/uL (3.50-5.40) Hemoglobin 13.2 g/dL (12.0-15.5) Hematocrit 41.4 % (36.0-47.0) Mean Corpuscular Volume 95 fL (79-100) Mean Corpuscular Hemoglobin 30 pg (25-35) Mean Corpuscular Hemoglobin Concent 32 g/dL (31-37) Red Cell Distribution Width 18.2 % (11.5-14.5) Platelet Count 412 x10^3/uL (140-400) Neutrophils (%) (Auto) 75 % (31-73) Lymphocytes (%) (Auto) 15 % (24-48) Monocytes (%) (Auto) 8 % (0-9) Eosinophils (%) (Auto) 2 % (0-3) Basophils (%) (Auto) 0 % (0-3) Neutrophils # (Auto) 9.4 x10^3uL (1.8-7.7) Lymphocytes # (Auto) 1.8 x10^3/uL (1.0-4.8) Monocytes # (Auto) 1.0 x10^3/uL (0.0-1.1) Eosinophils # (Auto) 0.2 x10^3/uL (0.0-0.7) Basophils # (Auto) 0.0 x10^3/uL (0.0-0.2) Sodium Level 167 mmol/L (136-145) Potassium Level 2.9 mmol/L (3.5-5.1) Chloride Level 128 mmol/L (98-107) Carbon Dioxide Level 23 mmol/L (21-32) Anion Gap 16 (6-14) Blood Urea Nitrogen 76 mg/dL (7-20) Creatinine 1.6 mg/dL (0.6-1.0) Estimated GFR (Cockcroft-Gault) 36.8 BUN/Creatinine Ratio 48 (6-20) Glucose Level 116 mg/dL (70-99) Calcium Level 9.2 mg/dL (8.5-10.1) Total Bilirubin 0.2 mg/dL (0.2-1.0) Aspartate Amino Transf (AST/SGOT) 19 U/L (15-37) Alanine Aminotransferase (ALT/SGPT) 13 U/L (14-59) Alkaline Phosphatase 94 U/L (46-116) Total Protein 7.3 g/dL (6.4-8.2) Albumin 2.2 g/dL (3.4-5.0) Albumin/Globulin Ratio 0.4 (1.0-1.7) Lactic Acid Level 2.3 mmol/L (0.4-2.0) 2.1 mmol/L (0.4-2.0) Test 03/27/17 09:40 White Blood Count 11.8 x10^3/uL (4.0-11.0) Red Blood Count 3.58 x10^6/uL (3.50-5.40) Hemoglobin 10.9 g/dL (12.0-15.5) Hematocrit 34.4 % (36.0-47.0) Mean Corpuscular Volume 96 fL (79-100) Mean Corpuscular Hemoglobin 31 pg (25-35) Mean Corpuscular Hemoglobin Concent 32 g/dL (31-37) Red Cell Distribution Width 18.4 % (11.5-14.5) Platelet Count 306 x10^3/uL (140-400) Neutrophils (%) (Auto) 71 % (31-73) Lymphocytes (%) (Auto) 16 % (24-48) Monocytes (%) (Auto) 12 % (0-9) Eosinophils (%) (Auto) 0 % (0-3) Basophils (%) (Auto) 0 % (0-3) Neutrophils # (Auto) 8.4 x10^3uL (1.8-7.7) Lymphocytes # (Auto) 1.9 x10^3/uL (1.0-4.8) Monocytes # (Auto) 1.5 x10^3/uL (0.0-1.1) Eosinophils # (Auto) 0.0 x10^3/uL (0.0-0.7) Basophils # (Auto) 0.0 x10^3/uL (0.0-0.2) Sodium Level 171 mmol/L (136-145) Potassium Level 3.2 mmol/L (3.5-5.1) Chloride Level 139 mmol/L (98-107) Carbon Dioxide Level 21 mmol/L (21-32) Anion Gap 11 (6-14) Blood Urea Nitrogen 62 mg/dL (7-20) Creatinine 1.1 mg/dL (0.6-1.0) Estimated GFR (Cockcroft-Gault) 56.7 Glucose Level 81 mg/dL (70-99) Calcium Level 8.0 mg/dL (8.5-10.1) Magnesium Level 2.4 mg/dL (1.8-2.4) Assessment/Plan Assessment/Plan IMP JOCELYNE-VASOMOTOR DEHYDRATION HYPERNATREMIA HYPOKALEMIA URINARY TRACT INFECTION PROB SEPSIS URINARY RETENTION CHRONIC KEYS USE MET ENCEPHALOPATHY DEMENTIA PLAN IVF'S ANTIBIOTICS KEYS PPROCKY CORONEL MD Mar 27, 2017 11:58
[2017-03-27] MEDS ORDERED: PIPERACILLIN/TAZOBACTAM 2.25 GM in IV DEXTROSE 5% 50 ML IV SCH (12:00)
[2017-03-27] MEDS ORDERED: POTASSIUM CHLORIDE 20MEQ 50 ML IV SCH (12:00)
--- NOTE | 2017-03-27 12:34 | CONS ---
DATE OF CONSULTATION: 03/27/2017 ROOM: 578. REQUESTING PHYSICIAN: Dr. Spencer. REASON FOR CONSULTATION: Complicated UTI. HISTORY OF PRESENT ILLNESS: The patient is an 86-year-old -[place] female, who is admitted from [facility] secondary to mental status change. Apparently, she had developed mental status, weakness since Sunday, the . She was brought to [facility] Emergency Room. She has a sodium of 164, white blood cell count of 11.1, and there was concern that she may have a urinary tract infection based on the urinalysis. She was given a dose of Rocephin and admitted to the hospital. Currently, she is lying on her right side. She will awaken, but she only moans. She does not respond to any questions. PAST MEDICAL HISTORY: Positive for hypertension, hyperlipidemia, peripheral vascular disease, COPD, Alzheimer dementia, peripheral neuropathy, seizure disorder, constipation, gastroesophageal reflux disease, bipolar, depression, osteoarthritis, chronic renal insufficiency stage 2, chronic Massey secondary to urinary retention, protein calorie malnutrition, previous history of UTI with E. coli as well as Hafnia back in 2014, all sensitive to Zosyn. The E. coli was fairly resistant. History of MRSA. PAST SURGICAL HISTORY: Positive for hysterectomy. REVIEW OF SYSTEMS: Unobtainable. ALLERGIES: No known drug allergies. SOCIAL HISTORY: She is a [facility] resident. No tobacco or alcohol. FAMILY HISTORY: Noncontributory secondary to her age. CURRENT MEDICATIONS: Again, she received a dose of Rocephin. She is on Keppra, valproic acid, Pepcid, Zofran. Other meds are available, have been reviewed in the chart. PHYSICAL EXAMINATION: VITAL SIGNS: She has been afebrile since her admission. Most recent temperature is 97.8, pulse 80, respirations 18. Blood pressure was 132/90, been difficult time getting it now secondary Satting 97% on room air. CONSTITUTIONAL: She has been awakened. HEENT: Pupils were equal and reactive. Oral cavity, her lips were dry. NECK: Without any JVD or tenderness. HEART: S1 and S2. LUNGS: Clear to auscultation. ABDOMEN: Soft, nontender, nondistended. EXTREMITIES: Without clubbing, cyanosis or gross edema. SKIN: Warm to touch without signs of rash. NEUROLOGIC: She was confused. LABORATORY DATA: Today, white count of 11.8, was 12.3 last evening. Hemoglobin now 10.9, platelets of 306, with 71 segs, 16 lymphs. Sodium dropped to 171. Creatinine has improved to 1.1, down from 1.6. Urinalysis concerning for urinary tract infection. Chest x-ray was clear. IMPRESSION: 1. Complicated urinary tract infection, present on admission from the . 2. Leukocytosis. 3. Acute encephalopathy. 4. Acute kidney injury. 5. Hypernatremia. 6. History of seizures. 7. History of methicillin-resistant Staphylococcus aureus. RECOMMENDATIONS: For now, we will change to Zosyn and follow up on labs and cultures. This was discussed with Dr. Spencer. Thank you for participating in this patient's care. Should you have any further concerns and questions, please do not hesitate to contact me. KELI SALINAS MD DR: [email or web address] JOB#: [id number] / [id number]
[2017-03-27] MEDS: AMINO AC 3%/ELECTROLYTE/GLYCER 1,000 ML IV SCH (12:40)
[2017-03-27] MEDS: VALPROIC ACID IV SCH ×2 (12:42→17:42)
[2017-03-27] MEDS: NORMAL SALINE IV SCH ×2 (12:42→17:42)
[2017-03-27] MEDS: PIPERACILLIN/TAZO IV Push 2.25 GM VIAL. IVP SCH ×2 (12:44→17:42)
[2017-03-27] MEDS ORDERED: POTASSIUM CHLORIDE 20 MEQ/15 ML ORAL LIQUID. PO ONE (12:45)
[2017-03-27] MEDS ORDERED: POTASSIUM CHLORIDE 20 MEQ/15 ML ORAL LIQUID. PEG ONE (12:45)
[2017-03-27] MEDS ORDERED: ONDANSETRON ODT 4 MG TAB.RAPDIS. PO PRN (20:00)
[2017-03-27] MEDS ORDERED: BISA10SU2 RC (20:15)
[2017-03-27] MEDS ORDERED: DIVA125T2 PO (20:15)
[2017-03-27] MEDS ORDERED: MAGN400O7 PO (20:15)
[2017-03-27] MEDS ORDERED: NA P133E2 RC (20:15)
[2017-03-27] MEDS ORDERED: DOCU100T5 PO (20:15)
[2017-03-27] MEDS ORDERED: [UNRECOGNIZED DRUG - CODE] PO (20:15)
[2017-03-27] MEDS ORDERED: AMLO5TAB4 PO (20:15)
[2017-03-27] MEDS ORDERED: LOPERAMIDE 2 MG CAPSULE PO PRN (20:30)
[2017-03-27] MEDS: LACTOBACILLUS RHAMNOSUS GG 1 CAPSULE. PO SCH (20:47)
[2017-03-27] MEDS: HYDROcodone/APAP 5/325MG 1 TAB TABLET PO SCH (20:48)
[2017-03-27] MEDS: LATANOPROST 0.005% OPHTH SOLUTION 2.5ML BOTTLE. OU SCH (20:48)
[2017-03-27] MEDS ORDERED: MIRTAZAPINE 15 MG TABLET PO SCH (21:00)
[2017-03-27] MEDS ORDERED: ACETAMINOPHEN 500 MG PO SCH (21:00)
[2017-03-27] MEDS: ALBUTEROL SULFATE 2.5 MG/3 ML NEBU. NEB SCH (21:18)
[2017-03-28] MEDS: VALPROIC ACID IV SCH ×4 (00:16→21:55)
[2017-03-28] MEDS: PIPERACILLIN/TAZO IV Push 2.25 GM VIAL. IVP SCH ×4 (00:16→21:55)
[2017-03-28] MEDS: NORMAL SALINE IV SCH ×4 (00:16→21:55)
[2017-03-28] MEDS: AMINO AC 3%/ELECTROLYTE/GLYCER 1,000 ML IV SCH ×3 (00:30→21:59)
[2017-03-28 03:00] VITALS: BP 128/37
[2017-03-28] MEDS: IV NORMAL SALINE 1000ML BAG 1,000 ML IV SCH (04:40)
[2017-03-28 06:03] LABS: CALCIUM 8.1 mg/dL (8.5-10.1); CREATININE 1.1 mg/dL (0.6-1.0); GFR 56.7; MAGNESIUM 2.4 mg/dL (1.8-2.4); PHOSPHORUS 2.3 mg/dL (2.6-4.7); POTASSIUM 4.2 mmol/L (3.5-5.1)
[2017-03-28 07:00] VITALS: BP 103/70
[2017-03-28] MEDS: ALBUTEROL SULFATE 2.5 MG/3 ML NEBU. NEB SCH ×2 (07:56→20:46)
[2017-03-28 08:07] LABS: BASO % 0 % (0-3); EOS % 0 % (0-3); HEMATOCRIT 36.7 % (36.0-47.0); HEMOGLOBIN 11.5 g/dL (12.0-15.5); LYMPH # 2.3 x10^3/uL (1.0-4.8); LYMPH % 21 % (24-48); MEAN CORPUSCULAR HEMOGLOBIN 31 pg (25-35); MEAN CORPUSCULAR HGB CONC 31 g/dL (31-37); MEAN CORPUSCULAR VOLUME 98 fL (79-100); MONO % 9 % (0-9); NEUT % 69 % (31-73); PLATELET COUNT 264 x10^3/uL (140-400); RED BLOOD COUNT 3.73 x10^6/uL (3.50-5.40); WHITE BLOOD COUNT 10.9 x10^3/uL (4.0-11.0)
[2017-03-28] MEDS: FAMOTIDINE 20 MG/2 ML VIAL IVP SCH (08:43)
[2017-03-28] MEDS ORDERED: MULTIVITAMIN with MINERAL TABLET. PO SCH (09:00)
[2017-03-28] MEDS ORDERED: POTASSIUM CHLORIDE 10 MEQ TABLET.ER. PO SCH (09:00)
[2017-03-28] MEDS: HYDROcodone/APAP 5/325MG 1 TAB TABLET PO SCH (09:00)
[2017-03-28] MEDS ORDERED: POLYETHYLENE GLYCOL 3350 17 GM PACKET. PO SCH (09:00)
[2017-03-28] MEDS: LACTOBACILLUS RHAMNOSUS GG 1 CAPSULE. PO SCH (09:00)
[2017-03-28] MEDS ORDERED: CHOLECALCIFEROL (VITAMIN D3) 1,000 UNIT TABLET PO SCH (09:00)
[2017-03-28] MEDS ORDERED: CITALOPRAM 10 MG TABLET. PO SCH (09:00)
[2017-03-28] MEDS ORDERED: ACETAMINOPHEN 325 MG SUPP.RECT. PR PRN (09:15)
--- NOTE | 2017-03-28 09:16 | PDOC ---
OLEGARIOHARLEYMYA [employer]ION INSPECTOR 03/28/17 0916: IM PROGRESS NOTES- Subjective Subjective minimally responsive Objective Objective not eating, not swallowing meds. Vitals Vital Signs Date Time Temp Pulse Resp B/P (MAP) Pulse Ox O2 Delivery O2 Flow Rate FiO2 03/28/17 07:58 97 Room Air 03/28/17 07:00 97.9 66 18 103/70 (81) 97.9 Input & Output Intake and Output 03/28/17 07:00 Intake Total 1090 ml Output Total 450 ml Balance 640 ml Intake Oral 1090 ml Output Urine Total 450 ml # Voids 2 Physical Exam Physical Exam General appearance - minimally responsive, ill appearing, and in no distress Mental Status - minimally responsive, will arouse to name Head - normal Chest - clear to auscultation, no wheezes, rales or rhonchi, symmetric air entry Heart - S1 and S2 normal Abdomen - soft, nontender, nondistended, BS+ Gu- keys iza urine Neurological - minimally responsove Musculoskeletal - no muscular tenderness noted Extremities - no pedal edema Skin - warm and dry Labs Laboratory Tests Test 03/26/17 19:55 03/26/17 20:15 03/26/17 22:15 03/27/17 03:00 Urine Collection Type Unknown Urine Color Yellow Urine Clarity Turbid Urine pH 8.5 Urine Specific Bixby 1.020 Urine Protein 100 mg/dL (NEG-TRACE) Urine Glucose (UA) Negative mg/dL (NEG) Urine Ketones (Stick) Negative mg/dL (NEG) Urine Blood Small (NEG) Urine Nitrite Positive (NEG) Urine Bilirubin Negative (NEG) Urine Urobilinogen Dipstick 0.2 mg/dL (0.2 mg/dL) Urine Leukocyte Esterase Large (NEG) Urine RBC 0 /HPF (0-2) Urine WBC 11-20 /HPF (0-4) Urine Amorphous Sediment Present /HPF Urine Bacteria Many /HPF (0-FEW) White Blood Count 12.5 x10^3/uL (4.0-11.0) Red Blood Count 4.37 x10^6/uL (3.50-5.40) Hemoglobin 13.2 g/dL (12.0-15.5) Hematocrit 41.4 % (36.0-47.0) Mean Corpuscular Volume 95 fL (79-100) Mean Corpuscular Hemoglobin 30 pg (25-35) Mean Corpuscular Hemoglobin Concent 32 g/dL (31-37) Red Cell Distribution Width 18.2 % (11.5-14.5) Platelet Count 412 x10^3/uL (140-400) Neutrophils (%) (Auto) 75 % (31-73) Lymphocytes (%) (Auto) 15 % (24-48) Monocytes (%) (Auto) 8 % (0-9) Eosinophils (%) (Auto) 2 % (0-3) Basophils (%) (Auto) 0 % (0-3) Neutrophils # (Auto) 9.4 x10^3uL (1.8-7.7) Lymphocytes # (Auto) 1.8 x10^3/uL (1.0-4.8) Monocytes # (Auto) 1.0 x10^3/uL (0.0-1.1) Eosinophils # (Auto) 0.2 x10^3/uL (0.0-0.7) Basophils # (Auto) 0.0 x10^3/uL (0.0-0.2) Sodium Level 167 mmol/L (136-145) Potassium Level 2.9 mmol/L (3.5-5.1) Chloride Level 128 mmol/L (98-107) Carbon Dioxide Level 23 mmol/L (21-32) Anion Gap 16 (6-14) Blood Urea Nitrogen 76 mg/dL (7-20) Creatinine 1.6 mg/dL (0.6-1.0) Estimated GFR (Cockcroft-Gault) 36.8 BUN/Creatinine Ratio 48 (6-20) Glucose Level 116 mg/dL (70-99) Calcium Level 9.2 mg/dL (8.5-10.1) Total Bilirubin 0.2 mg/dL (0.2-1.0) Aspartate Amino Transf (AST/SGOT) 19 U/L (15-37) Alanine Aminotransferase (ALT/SGPT) 13 U/L (14-59) Alkaline Phosphatase 94 U/L (46-116) Total Protein 7.3 g/dL (6.4-8.2) Albumin 2.2 g/dL (3.4-5.0) Albumin/Globulin Ratio 0.4 (1.0-1.7) Lactic Acid Level 2.3 mmol/L (0.4-2.0) Nasal Screen MRSA (PCR) Positive (Negative) Test 03/27/17 05:00 03/27/17 09:40 03/28/17 04:30 03/28/17 07:20 Lactic Acid Level 2.1 mmol/L (0.4-2.0) White Blood Count 11.8 x10^3/uL (4.0-11.0) 10.9 x10^3/uL (4.0-11.0) Red Blood Count 3.58 x10^6/uL (3.50-5.40) 3.73 x10^6/uL (3.50-5.40) Hemoglobin 10.9 g/dL (12.0-15.5) 11.5 g/dL (12.0-15.5) Hematocrit 34.4 % (36.0-47.0) 36.7 % (36.0-47.0) Mean Corpuscular Volume 96 fL (79-100) 98 fL (79-100) Mean Corpuscular Hemoglobin 31 pg (25-35) 31 pg (25-35) Mean Corpuscular Hemoglobin Concent 32 g/dL (31-37) 31 g/dL (31-37) Red Cell Distribution Width 18.4 % (11.5-14.5) 19.0 % (11.5-14.5) Platelet Count 306 x10^3/uL (140-400) 264 x10^3/uL (140-400) Neutrophils (%) (Auto) 71 % (31-73) 69 % (31-73) Lymphocytes (%) (Auto) 16 % (24-48) 21 % (24-48) Monocytes (%) (Auto) 12 % (0-9) 9 % (0-9) Eosinophils (%) (Auto) 0 % (0-3) 0 % (0-3) Basophils (%) (Auto) 0 % (0-3) 0 % (0-3) Neutrophils # (Auto) 8.4 x10^3uL (1.8-7.7) 7.6 x10^3uL (1.8-7.7) Lymphocytes # (Auto) 1.9 x10^3/uL (1.0-4.8) 2.3 x10^3/uL (1.0-4.8) Monocytes # (Auto) 1.5 x10^3/uL (0.0-1.1) 1.0 x10^3/uL (0.0-1.1) Eosinophils # (Auto) 0.0 x10^3/uL (0.0-0.7) 0.0 x10^3/uL (0.0-0.7) Basophils # (Auto) 0.0 x10^3/uL (0.0-0.2) 0.0 x10^3/uL (0.0-0.2) Sodium Level 171 mmol/L (136-145) 169 mmol/L (136-145) Potassium Level 3.2 mmol/L (3.5-5.1) 4.2 mmol/L (3.5-5.1) Chloride Level 139 mmol/L (98-107) 138 mmol/L (98-107) Carbon Dioxide Level 21 mmol/L (21-32) 13 mmol/L (21-32) Anion Gap 11 (6-14) 18 (6-14) Blood Urea Nitrogen 62 mg/dL (7-20) 46 mg/dL (7-20) Creatinine 1.1 mg/dL (0.6-1.0) 1.1 mg/dL (0.6-1.0) Estimated GFR (Cockcroft-Gault) 56.7 56.7 Glucose Level 81 mg/dL (70-99) 73 mg/dL (70-99) Calcium Level 8.0 mg/dL (8.5-10.1) 8.1 mg/dL (8.5-10.1) Magnesium Level 2.4 mg/dL (1.8-2.4) 2.4 mg/dL (1.8-2.4) Phosphorus Level 2.3 mg/dL (2.6-4.7) Laboratory Tests Test 03/27/17 09:40 03/28/17 04:30 03/28/17 07:20 White Blood Count 11.8 x10^3/uL (4.0-11.0) 10.9 x10^3/uL (4.0-11.0) Red Blood Count 3.58 x10^6/uL (3.50-5.40) 3.73 x10^6/uL (3.50-5.40) Hemoglobin 10.9 g/dL (12.0-15.5) 11.5 g/dL (12.0-15.5) Hematocrit 34.4 % (36.0-47.0) 36.7 % (36.0-47.0) Mean Corpuscular Volume 96 fL (79-100) 98 fL (79-100) Mean Corpuscular Hemoglobin 31 pg (25-35) 31 pg (25-35) Mean Corpuscular Hemoglobin Concent 32 g/dL (31-37) 31 g/dL (31-37) Red Cell Distribution Width 18.4 % (11.5-14.5) 19.0 % (11.5-14.5) Platelet Count 306 x10^3/uL (140-400) 264 x10^3/uL (140-400) Neutrophils (%) (Auto) 71 % (31-73) 69 % (31-73) Lymphocytes (%) (Auto) 16 % (24-48) 21 % (24-48) Monocytes (%) (Auto) 12 % (0-9) 9 % (0-9) Eosinophils (%) (Auto) 0 % (0-3) 0 % (0-3) Basophils (%) (Auto) 0 % (0-3) 0 % (0-3) Neutrophils # (Auto) 8.4 x10^3uL (1.8-7.7) 7.6 x10^3uL (1.8-7.7) Lymphocytes # (Auto) 1.9 x10^3/uL (1.0-4.8) 2.3 x10^3/uL (1.0-4.8) Monocytes # (Auto) 1.5 x10^3/uL (0.0-1.1) 1.0 x10^3/uL (0.0-1.1) Eosinophils # (Auto) 0.0 x10^3/uL (0.0-0.7) 0.0 x10^3/uL (0.0-0.7) Basophils # (Auto) 0.0 x10^3/uL (0.0-0.2) 0.0 x10^3/uL (0.0-0.2) Sodium Level 171 mmol/L (136-145) 169 mmol/L (136-145) Potassium Level 3.2 mmol/L (3.5-5.1) 4.2 mmol/L (3.5-5.1) Chloride Level 139 mmol/L (98-107) 138 mmol/L (98-107) Carbon Dioxide Level 21 mmol/L (21-32) 13 mmol/L (21-32) Anion Gap 11 (6-14) 18 (6-14) Blood Urea Nitrogen 62 mg/dL (7-20) 46 mg/dL (7-20) Creatinine 1.1 mg/dL (0.6-1.0) 1.1 mg/dL (0.6-1.0) Estimated GFR (Cockcroft-Gault) 56.7 56.7 Glucose Level 81 mg/dL (70-99) 73 mg/dL (70-99) Calcium Level 8.0 mg/dL (8.5-10.1) 8.1 mg/dL (8.5-10.1) Magnesium Level 2.4 mg/dL (1.8-2.4) 2.4 mg/dL (1.8-2.4) Phosphorus Level 2.3 mg/dL (2.6-4.7) Meds Current Medications Acetaminophen (Tylenol) 650 mg PRN Q4HRS PRN PO FEVER; Start 03/27/17 at 09:15 Acetaminophen/ Hydrocodone Bitart (Lortab 5/325) 1 tab QID PO ; Start 03/27/17 at 21:00 Albuterol Sulfate (Ventolin Neb Soln) 2.5 mg BID NEB Last administered on 03/28 07:56; Start 03/27/17 at 21:00 Amino Acids/ Glycerin/ Electrolytes 1,000 ml @ 100 mls/hr Q10H IV Last administered on 03/27/17 12:40; Start 03/27/17 at 12:00 Citalopram Hydrobromide (CeleXA) 10 mg DAILY PO ; Start 03/28/17 at 09:00 Famotidine (Pepcid Vial) 20 mg DAILY IVP Last administered on 03/28/17 08:43 ; Start 03/27/17 at 10:30 Lactobacillus Rhamnosus (Culturelle) 1 cap BID PO ; Start 03/27/17 at 21:00 Latanoprost (Xalatan) 1 drop QHS OU ; Start 03/27/17 at 21:00 Levetiracetam 250 mg/Sodium Chloride 102.5 ml @ 420 mls/hr Q12HR IV Last administered on 03/28/17 08:42; Start 03/27/17 at 10:30 Loperamide HCl (Imodium) 2 mg PRN DAILY PRN PO DIARRHEA; Start 03/27/17 at 20: 30 Mirtazapine (Remeron) 15 mg QHS PO ; Start 03/27/17 at 21:00 Multivitamins (Thera M Plus) 1 tab DAILY PO ; Start 03/28/17 at 09:00 Non-Formulary Medication 500 mg TID PO ; Start 03/27/17 at 21:00; Stop at 21:00; Status DC Ondansetron HCl (Zofran Odt) 4 mg QIDPRN PRN PO NAUSEA/VOMITING; Start at 20:00 Ondansetron HCl (Zofran) 4 mg PRN Q8HRS PRN IV NAUSEA/VOMITING; Start at 09:15 Piperacillin Sod/ Tazobactam Sod (Zosyn) 2.25 gm Q6HRS IVP Last administered on 03/28/17 06:25; Start 03/27/17 at 12:00 Piperacillin Sod/ Tazobactam Sod 2.25 gm/Dextrose 50 ml @ 100 mls/hr Q6HRS IV ; Start 03/27/17 at 12:00; Status UNV Polyethylene Glycol (miraLAX PACKET) 17 gm DAILY PO ; Start 03/28/17 at 09:00 Potassium Chloride 40 meq/ Sodium Chloride 1,020 ml @ 100 mls/hr [id number] IV ; Start 03/27/17 at 09:15; Status UNV Potassium Chloride/Sodium Chloride 1,000 ml @ 100 mls/hr Q10H IV Last administered on 03/27/17 11:35; Start 03/27/17 at 09:30; Stop 03/27/17 at 12 :01; Status DC Potassium Chloride 50 ml @ 50 mls/hr Q1H IV ; Start 03/27/17 at 12:00; Stop at 13:59; Status UNV Potassium Chloride (KCl Oral Soln) 40 meq ONCE ONCE PEG ; Start 03/27/17 at 12 :45; Stop 03/27/17 at 12:45; Status DC Potassium Chloride (KCl Oral Soln) 40 meq ONCE ONCE PO Last administered on 13:19; Start 03/27/17 at 12:45; Stop 03/27/17 at 12:46; Status DC Potassium Chloride (Klor-Con) 10 meq DAILY PO ; Start 03/28/17 at 09:00 Sodium Chloride 1,000 ml @ 60 mls/hr [id number] IV Last administered on 12:41; Start 03/27/17 at 12:00; Stop 03/28/17 at 07:58; Status DC Valproic Acid 1000 mg/Sodium Chloride 60 ml @ 55 mls/hr Q6HRS IV Last administered on 03/28/17 06:26; Start 03/27/17 at 12:00 Vitamin D (Vitamin D3) 1,000 unit DAILY PO ; Start 03/28/17 at 09:00 Assessment Assessment 1. UTI complicated/sepsis with h/o chronic keys for urine retention 2. acute metabolic encephalopathy with underlying Alzheimer dementia 3. ARF JOCELYNE VMN dehydration with underlying CKD II 4. acute hypernatremia 5. acute hypokalemia 6. HTN 7. Alzheimer dementia 8. urine retention with chronic indwelling keys 9. COPD 10. chronic moderate malnutrition 11. seizure disorder 12. GERD 13. Peripheral neuropathy 14. PVD 15. CKD II 16. OA generalized 17. anemia chronic disease 18. depression 19. hyperlipidemia 20. chronic constipation 21 h/o traumatic comminuted L femoral intratrochanteric neck fracture post traumatic fall 2014 no surgical intervention 22. severe PCL malnutrition with underlying chronic PCL malnutrition 23. severe weakness and debility 24. dysphagia with Regular diet mechanical soft chopped texture thin liquids PLAN 03/28/17 UTI sepsis - Zosyn IV -culture pending - BC negative ARF - BUN/Cr 46/1.1 - improving - acute metabolic encephalopathy - minimal improvement - not taking po meals/meds severe malnutrition - not eating - PPN 100cc/hr anemia - chronic Admit Hgb 13.2 today 11.5 - drop secondary to rehydration abnormal CXR - L basilar nodule? - CT chest w/o contrast For further plan of care, please refer to the orders. 03/27/17 UTI/sepsis - Admit WBC 12.5 - LA 2.3 decreased to 2.1 - Rocephin IV daily - ID consult - CBC pending ARF - IV NS in ED - decreased to NS 100cc/hr acute hypernatremia/hypokalemia - Admit NA 167 K 2.9 - NS IV - 40K per IVF x 1 - BMP pending - current IV NS 100cc/hr and 40KCL added - nephrology consult acute encephalopathy due to ARF/UTI chronic urine retention with chronic indwell keys - continue -changed in ER malnutrition - clear liquids - advance diet as tolerated seizure - keppra and depakote changed to IV. DVT/GI prophylaxis - SCD/CAITLIN Pepcid For more details regarding further plans, please refer to the orders. Plan Plan For more details regarding further plans, please refer to the orders. SARY RAMESH MD 03/28/17 1023: IM PROGRESS NOTES- Assessment Assessment Hypernatremia- Na 169- d/c N saline,increase PPN. The patient was seen and examined by me. Chart reviewed and plan of care formulated. Discussed with, reviewed and agree with SLOT MACHINE MECHANIC's notes, plan of care and orders with modifications as necessary. For more details regarding further plans, please refer to the orders. MYA TOVAR APRN Mar 28, 2017 09:16 SARY RAMESH MD Mar 28, 2017 10:23
[2017-03-28 10:49] VITALS: BP 101/68
--- NOTE | 2017-03-28 11:01 | PDOC ---
Infectious Disease Note Subjective Subjective Nonverbal ROS ROS Unobtainable Vital Sign Vital Signs Vital Signs Date Time Temp Pulse Resp B/P (MAP) Pulse Ox O2 Delivery O2 Flow Rate FiO2 03/28/17 10:49 97.8 65 18 101/68 (79) 90 Nasal Cannula 2.0 97.8 Physical Exam PHYSICAL EXAM GENERAL: NAD, min response HEENT: PERRL NECK: Supple, no JVD, no LN LUNGS: Clear HEART: S1S2, no gallop, no murmur ABD: Soft, NT, no organomegaly, no rebound Massey EXT: No edema, no cyanosis FOUNTAIN DISPENSER: Min response SKIN: No rash IV: ok Labs Lab Laboratory Tests Test 03/28/17 04:30 03/28/17 07:20 Sodium Level 169 mmol/L (136-145) Potassium Level 4.2 mmol/L (3.5-5.1) Chloride Level 138 mmol/L (98-107) Carbon Dioxide Level 13 mmol/L (21-32) Anion Gap 18 (6-14) Blood Urea Nitrogen 46 mg/dL (7-20) Creatinine 1.1 mg/dL (0.6-1.0) Estimated GFR (Cockcroft-Gault) 56.7 Glucose Level 73 mg/dL (70-99) Calcium Level 8.1 mg/dL (8.5-10.1) Phosphorus Level 2.3 mg/dL (2.6-4.7) Magnesium Level 2.4 mg/dL (1.8-2.4) White Blood Count 10.9 x10^3/uL (4.0-11.0) Red Blood Count 3.73 x10^6/uL (3.50-5.40) Hemoglobin 11.5 g/dL (12.0-15.5) Hematocrit 36.7 % (36.0-47.0) Mean Corpuscular Volume 98 fL (79-100) Mean Corpuscular Hemoglobin 31 pg (25-35) Mean Corpuscular Hemoglobin Concent 31 g/dL (31-37) Red Cell Distribution Width 19.0 % (11.5-14.5) Platelet Count 264 x10^3/uL (140-400) Neutrophils (%) (Auto) 69 % (31-73) Lymphocytes (%) (Auto) 21 % (24-48) Monocytes (%) (Auto) 9 % (0-9) Eosinophils (%) (Auto) 0 % (0-3) Basophils (%) (Auto) 0 % (0-3) Neutrophils # (Auto) 7.6 x10^3uL (1.8-7.7) Lymphocytes # (Auto) 2.3 x10^3/uL (1.0-4.8) Monocytes # (Auto) 1.0 x10^3/uL (0.0-1.1) Eosinophils # (Auto) 0.0 x10^3/uL (0.0-0.7) Basophils # (Auto) 0.0 x10^3/uL (0.0-0.2) Objective Assessment Complicated UTI - POA 03/26 Leukocytosis - better Acute Encephalopathy JOCELYNE - better Hypernatremia H/o seizures H/o MRSA Plan Plan of Care Cont Zosyn F/u labs and cults F/u CT KELI SALINAS MD Mar 28, 2017 11:01
--- NOTE | 2017-03-28 11:11 | PDOC ---
Renal-Progress Notes Subjective Notes Notes NONE History of Present Illness Hx of present illness NO CHANGE Vitals Vitals Vital Signs Date Time Temp Pulse Resp B/P (MAP) Pulse Ox O2 Delivery O2 Flow Rate FiO2 03/28/17 10:49 97.8 65 18 101/68 (79) 90 Nasal Cannula 2.0 97.8 Weight Weight [ ] I.O. Intake and Output Intake and Output 03/28/17 07:00 Intake Total 1090 ml Output Total 450 ml Balance 640 ml Intake Oral 1090 ml Output Urine Total 450 ml # Voids 2 Labs Labs Laboratory Tests Test 03/28/17 04:30 03/28/17 07:20 Sodium Level 169 mmol/L (136-145) Potassium Level 4.2 mmol/L (3.5-5.1) Chloride Level 138 mmol/L (98-107) Carbon Dioxide Level 13 mmol/L (21-32) Anion Gap 18 (6-14) Blood Urea Nitrogen 46 mg/dL (7-20) Creatinine 1.1 mg/dL (0.6-1.0) Estimated GFR (Cockcroft-Gault) 56.7 Glucose Level 73 mg/dL (70-99) Calcium Level 8.1 mg/dL (8.5-10.1) Phosphorus Level 2.3 mg/dL (2.6-4.7) Magnesium Level 2.4 mg/dL (1.8-2.4) White Blood Count 10.9 x10^3/uL (4.0-11.0) Red Blood Count 3.73 x10^6/uL (3.50-5.40) Hemoglobin 11.5 g/dL (12.0-15.5) Hematocrit 36.7 % (36.0-47.0) Mean Corpuscular Volume 98 fL (79-100) Mean Corpuscular Hemoglobin 31 pg (25-35) Mean Corpuscular Hemoglobin Concent 31 g/dL (31-37) Red Cell Distribution Width 19.0 % (11.5-14.5) Platelet Count 264 x10^3/uL (140-400) Neutrophils (%) (Auto) 69 % (31-73) Lymphocytes (%) (Auto) 21 % (24-48) Monocytes (%) (Auto) 9 % (0-9) Eosinophils (%) (Auto) 0 % (0-3) Basophils (%) (Auto) 0 % (0-3) Neutrophils # (Auto) 7.6 x10^3uL (1.8-7.7) Lymphocytes # (Auto) 2.3 x10^3/uL (1.0-4.8) Monocytes # (Auto) 1.0 x10^3/uL (0.0-1.1) Eosinophils # (Auto) 0.0 x10^3/uL (0.0-0.7) Basophils # (Auto) 0.0 x10^3/uL (0.0-0.2) Micro Micro Microbiology 03/26/17 Blood Culture - Preliminary, Resulted NO GROWTH AFTER 1 DAY Review of Systems Constitutional: yes: no symptom reported, other (CONFUSED) Ears/Nose/Throat: Yes: no symptom reported Eyes: Yes: no symptom reported Pulmonary: Yes no symptom reported Cardiovascular: Yes no symptom reported Gastrointestional: Yes: no symptom reported Genitourinary: Yes: no symptom reported Musculoskeletal: Yes: no symptom reported Skin: Yes no symptom reported Psychiatric/Neurological: Yes: no symptom reported Endocrine: Yes: no symptom reported Physical Exam General Appearance: no apparent distress Skin: warm Respiratory: bilateral CTA Heart: S1S2 Abdomen: soft, bowel sounds present Genitourinary: bladder flat Extremities: pulses present Neurology: alert Musculoskeletal: Osteoarthritis Assessment Assessment IMP UTI SEPSIS DEHYDRATION HYPERNATREMIA JOCELYNE-BETTER PLAN CONT PPN CONT ANTIBIOTICS LABS IN AM ROCKY OLSEN MD Mar 28, 2017 11:11
--- NOTE | 2017-03-28 12:34 | RAD ---
CT chest without contrast 03/28/2017 Clinical indication: Abnormal checks x-ray with left lung base nodule. Comparison: Chest radiograph 03/26/2017, CT chest 08/18/2005. Technique: Multiple CT images of the chest were obtained without contrast according to standard protocol. PQRS Compliance Statement: One or more of the following individualized dose reduction techniques were utilized for this examination: 1. Automated exposure control 2. Adjustment of the mA and/or kV according to patient size 3. Use of iterative reconstruction technique Findings: Chest: Heart size is normal without significant pericardial effusion. There is mild dilatation of the ascending thoracic aorta measuring 4.0 cm with moderate scattered calcified atheromatous disease. Three-vessel coronary artery calcifications. No axillary, mediastinal or obvious hilar lymphadenopathy. The central airways are patent. There is a stable noncalcified pulmonary nodule in the left lower lobe measuring 0.8 cm series 2/image 36, previously 0.8 cm from 2006 examination. There is a stable noncalcified nodule in the right upper lobe measuring 0.9 cm series 2/image 20, previously 0.9 cm. Tiny calcific granuloma in the left upper lobe. There is linear atelectasis or scarring in the dependent right lower lobe no pleural effusion or pneumothorax. There is diffuse bony demineralization. There is advanced cervical spondylosis of the visualized lower thoracic spine. Limited images of the upper abdomen: Persistent hepatic hypodensities. There is moderate right hydronephrosis which is only partially visualized. Impression: 1. Two bilateral noncalcified pulmonary nodules stable since 2006 examination compatible with benign noncalcified granulomas or nodular scarring. 2. Moderate right hydronephrosis which is only partially visualized. Clinical correlation is recommended. 3. Mildly dilated ascending thoracic aorta measuring 4.0 cm. 4. Coronary artery calcifications.
[2017-03-28] MEDS ORDERED: ACETAMINOPHEN 650 MG SUPP.RECT. PR PRN (13:30)
[2017-03-28 14:43] VITALS: BP 102/69
[2017-03-28 19:20] VITALS: BP 130/77
[2017-03-28] MEDS: LATANOPROST 0.005% OPHTH SOLUTION 2.5ML BOTTLE. OU SCH (21:29)
[2017-03-28 23:20] VITALS: BP 97/66
[2017-03-29] MEDS: PIPERACILLIN/TAZO IV Push 2.25 GM VIAL. IVP SCH ×4 (02:07→17:53)
[2017-03-29] MEDS: VALPROIC ACID IV SCH ×4 (02:08→17:52)
[2017-03-29] MEDS: NORMAL SALINE IV SCH ×4 (02:08→17:52)
[2017-03-29 03:25] VITALS: BP 94/75
[2017-03-29 05:26] LABS: BASO % 0 % (0-3); EOS % 0 % (0-3); HEMATOCRIT 31.7 % (36.0-47.0); HEMOGLOBIN 10.2 g/dL (12.0-15.5); LYMPH # 2.1 x10^3/uL (1.0-4.8); LYMPH % 21 % (24-48); MEAN CORPUSCULAR HEMOGLOBIN 31 pg (25-35); MEAN CORPUSCULAR HGB CONC 32 g/dL (31-37); MEAN CORPUSCULAR VOLUME 96 fL (79-100); MONO % 7 % (0-9); NEUT % 72 % (31-73); PLATELET COUNT 261 x10^3/uL (140-400); RED CELL DISTRIBUTION WIDTH 18.2 % (11.5-14.5); WHITE BLOOD COUNT 10.2 x10^3/uL (4.0-11.0)
[2017-03-29 06:18] LABS: CALCIUM 8.1 mg/dL (8.5-10.1); CREATININE 0.9 mg/dL (0.6-1.0); GFR 71.5; POTASSIUM 3.3 mmol/L (3.5-5.1)
[2017-03-29 07:00] VITALS: BP 137/40
[2017-03-29] MEDS: ALBUTEROL SULFATE 2.5 MG/3 ML NEBU. NEB SCH ×2 (07:27→20:54)
[2017-03-29] MEDS: AMINO AC 3%/ELECTROLYTE/GLYCER 1,000 ML IV SCH ×2 (07:59→22:40)
--- NOTE | 2017-03-29 08:45 | PDOC ---
OLEGARIOHARLEYMYA CLINICAL MATERIAL HANDLER 03/29/17 0845: IM PROGRESS NOTES- Subjective Subjective groaning with assessment Objective Objective minimal improvement encephalopathy Vitals Vital Signs Date Time Temp Pulse Resp B/P (MAP) Pulse Ox O2 Delivery O2 Flow Rate FiO2 03/29/17 07:23 92 Room Air 03/29/17 07:00 97.5 63 16 137/40 (72) 97.5 03/28/17 10:49 2.0 Input & Output Intake and Output 03/29/17 07:00 Output Total 1200 ml Balance -1200 ml Output Urine Total 1200 ml # Bowel Movements 1 Physical Exam Physical Exam General appearance - minimally responsive, ill appearing, and groans with assessment Mental Status - minimally responsive, will arouse to name Head - normal Chest - clear to auscultation, no wheezes, rales or rhonchi, symmetric air entry Heart - S1 and S2 normal Abdomen - soft, nontender, nondistended, BS+ Gu- keys iza urine Neurological - minimally responsive Musculoskeletal - no muscular tenderness noted Extremities - no pedal edema Skin - warm and dry Labs Laboratory Tests Test 03/27/17 09:40 03/28/17 04:30 03/28/17 07:20 03/29/17 05:00 White Blood Count 11.8 x10^3/uL (4.0-11.0) 10.9 x10^3/uL (4.0-11.0) 10.2 x10^3/uL (4.0-11.0) Red Blood Count 3.58 x10^6/uL (3.50-5.40) 3.73 x10^6/uL (3.50-5.40) 3.30 x10^6/uL (3.50-5.40) Hemoglobin 10.9 g/dL (12.0-15.5) 11.5 g/dL (12.0-15.5) 10.2 g/dL (12.0-15.5) Hematocrit 34.4 % (36.0-47.0) 36.7 % (36.0-47.0) 31.7 % (36.0-47.0) Mean Corpuscular Volume 96 fL (79-100) 98 fL (79-100) 96 fL (79-100) Mean Corpuscular Hemoglobin 31 pg (25-35) 31 pg (25-35) 31 pg (25-35) Mean Corpuscular Hemoglobin Concent 32 g/dL (31-37) 31 g/dL (31-37) 32 g/dL (31-37) Red Cell Distribution Width 18.4 % (11.5-14.5) 19.0 % (11.5-14.5) 18.2 % (11.5-14.5) Platelet Count 306 x10^3/uL (140-400) 264 x10^3/uL (140-400) 261 x10^3/uL (140-400) Neutrophils (%) (Auto) 71 % (31-73) 69 % (31-73) 72 % (31-73) Lymphocytes (%) (Auto) 16 % (24-48) 21 % (24-48) 21 % (24-48) Monocytes (%) (Auto) 12 % (0-9) 9 % (0-9) 7 % (0-9) Eosinophils (%) (Auto) 0 % (0-3) 0 % (0-3) 0 % (0-3) Basophils (%) (Auto) 0 % (0-3) 0 % (0-3) 0 % (0-3) Neutrophils # (Auto) 8.4 x10^3uL (1.8-7.7) 7.6 x10^3uL (1.8-7.7) 7.3 x10^3uL (1.8-7.7) Lymphocytes # (Auto) 1.9 x10^3/uL (1.0-4.8) 2.3 x10^3/uL (1.0-4.8) 2.1 x10^3/uL (1.0-4.8) Monocytes # (Auto) 1.5 x10^3/uL (0.0-1.1) 1.0 x10^3/uL (0.0-1.1) 0.7 x10^3/uL (0.0-1.1) Eosinophils # (Auto) 0.0 x10^3/uL (0.0-0.7) 0.0 x10^3/uL (0.0-0.7) 0.0 x10^3/uL (0.0-0.7) Basophils # (Auto) 0.0 x10^3/uL (0.0-0.2) 0.0 x10^3/uL (0.0-0.2) 0.0 x10^3/uL (0.0-0.2) Sodium Level 171 mmol/L (136-145) 169 mmol/L (136-145) 170 mmol/L (136-145) Potassium Level 3.2 mmol/L (3.5-5.1) 4.2 mmol/L (3.5-5.1) 3.3 mmol/L (3.5-5.1) Chloride Level 139 mmol/L (98-107) 138 mmol/L (98-107) 137 mmol/L (98-107) Carbon Dioxide Level 21 mmol/L (21-32) 13 mmol/L (21-32) 19 mmol/L (21-32) Anion Gap 11 (6-14) 18 (6-14) 14 (6-14) Blood Urea Nitrogen 62 mg/dL (7-20) 46 mg/dL (7-20) 41 mg/dL (7-20) Creatinine 1.1 mg/dL (0.6-1.0) 1.1 mg/dL (0.6-1.0) 0.9 mg/dL (0.6-1.0) Estimated GFR (Cockcroft-Gault) 56.7 56.7 71.5 Glucose Level 81 mg/dL (70-99) 73 mg/dL (70-99) 61 mg/dL (70-99) Calcium Level 8.0 mg/dL (8.5-10.1) 8.1 mg/dL (8.5-10.1) 8.1 mg/dL (8.5-10.1) Magnesium Level 2.4 mg/dL (1.8-2.4) 2.4 mg/dL (1.8-2.4) Phosphorus Level 2.3 mg/dL (2.6-4.7) Laboratory Tests Test 03/29/17 05:00 White Blood Count 10.2 x10^3/uL (4.0-11.0) Red Blood Count 3.30 x10^6/uL (3.50-5.40) Hemoglobin 10.2 g/dL (12.0-15.5) Hematocrit 31.7 % (36.0-47.0) Mean Corpuscular Volume 96 fL (79-100) Mean Corpuscular Hemoglobin 31 pg (25-35) Mean Corpuscular Hemoglobin Concent 32 g/dL (31-37) Red Cell Distribution Width 18.2 % (11.5-14.5) Platelet Count 261 x10^3/uL (140-400) Neutrophils (%) (Auto) 72 % (31-73) Lymphocytes (%) (Auto) 21 % (24-48) Monocytes (%) (Auto) 7 % (0-9) Eosinophils (%) (Auto) 0 % (0-3) Basophils (%) (Auto) 0 % (0-3) Neutrophils # (Auto) 7.3 x10^3uL (1.8-7.7) Lymphocytes # (Auto) 2.1 x10^3/uL (1.0-4.8) Monocytes # (Auto) 0.7 x10^3/uL (0.0-1.1) Eosinophils # (Auto) 0.0 x10^3/uL (0.0-0.7) Basophils # (Auto) 0.0 x10^3/uL (0.0-0.2) Sodium Level 170 mmol/L (136-145) Potassium Level 3.3 mmol/L (3.5-5.1) Chloride Level 137 mmol/L (98-107) Carbon Dioxide Level 19 mmol/L (21-32) Anion Gap 14 (6-14) Blood Urea Nitrogen 41 mg/dL (7-20) Creatinine 0.9 mg/dL (0.6-1.0) Estimated GFR (Cockcroft-Gault) 71.5 Glucose Level 61 mg/dL (70-99) Calcium Level 8.1 mg/dL (8.5-10.1) Meds Current Medications Acetaminophen (Acetaminophen Supp) 650 mg PRN Q6HRS PRN MI MILD PAIN / TEMP; Start 03/28/17 at 13:30 Acetaminophen (Tylenol) 650 mg PRN Q6HRS PRN MI MILD PAIN / TEMP; Start at 09:15; Stop 03/28/17 at 13:19; Status DC Citalopram Hydrobromide (CeleXA) 10 mg DAILY PO ; Start 03/28/17 at 09:00; Stop 03/28/17 at 12:40; Status DC Multivitamins (Thera M Plus) 1 tab DAILY PO ; Start 03/28/17 at 09:00; Stop at 12:41; Status DC Polyethylene Glycol (miraLAX PACKET) 17 gm DAILY PO ; Start 03/28/17 at 09:00; Stop 03/28/17 at 12:40; Status DC Potassium Chloride 40 meq/ Dextrose 1,020 ml @ 60 mls/hr Q17H IV ; Start 03/29 at 09:00 Potassium Chloride (Klor-Con) 10 meq DAILY PO ; Start 03/28/17 at 09:00; Stop 03/28/17 at 12:41; Status DC Vitamin D (Vitamin D3) 1,000 unit DAILY PO ; Start 03/28/17 at 09:00; Stop at 12:40; Status DC Assessment Assessment 1. UTI complicated/sepsis with h/o chronic keys for urine retention 2. acute metabolic encephalopathy with underlying Alzheimer dementia 3. ARF JOCELYNE VMN dehydration with underlying CKD II 4. acute hypernatremia 5. acute hypokalemia 6. HTN 7. Alzheimer dementia 8. urine retention with chronic indwelling keys 9. COPD 10. chronic moderate malnutrition 11. seizure disorder 12. GERD 13. Peripheral neuropathy 14. PVD 15. CKD II 16. OA generalized 17. anemia chronic disease 18. depression 19. hyperlipidemia 20. chronic constipation 21 h/o traumatic comminuted L femoral intratrochanteric neck fracture post traumatic fall 2014 no surgical intervention 22. severe PCL malnutrition with underlying chronic PCL malnutrition 23. severe weakness and debility 24. dysphagia with Regular diet mechanical soft chopped texture thin liquids PLAN: CT chest 03/29/17: 1. Two bilateral noncalcified pulmonary nodules stable since 2005 examination compatible with benign noncalcified granulomas or nodular scarring. 2. Moderate right hydronephrosis which is only partially visualized. Clinical correlation is recommended. 3. Mildly dilated ascending thoracic aorta measuring 4.0 cm. 4. Coronary artery calcifications. 03/29/17 UTI sepsis - zosyn continues - moderate R hydronephrosis per CT - WBC 10.2 improved - keys leaking changed to #18F last evening ARF - improving BUN/Cr 41/0.9 hypernatremia - unchanged - NA on admit 169 today 170 D5W 40KCL 75cc/hr to be started hypokalemia - K 3.3 - will need KCL replacement - PICC line pending - IV present but tenuous stability - D5W 40KCL 75cc/hr to be started anemia - Hgb 10.2 abnormal CXR - CT chest revealed non calcified nodule chronic, benign - no further workup malnutrition - PPN 100cchr 03/28/17 UTI sepsis - Zosyn IV -culture pending - BC negative ARF - BUN/Cr 46/1.1 - improving - acute metabolic encephalopathy - minimal improvement - not taking po meals/meds severe malnutrition - not eating - PPN 100cc/hr anemia - chronic Admit Hgb 13.2 today 11.5 - drop secondary to rehydration abnormal CXR - L basilar nodule? - CT chest w/o contrast For further plan of care, please refer to the orders. 03/27/17 UTI/sepsis - Admit WBC 12.5 - LA 2.3 decreased to 2.1 - Rocephin IV daily - ID consult - CBC pending ARF - IV NS in ED - decreased to NS 100cc/hr acute hypernatremia/hypokalemia - Admit NA 167 K 2.9 - NS IV - 40K per IVF x 1 - BMP pending - current IV NS 100cc/hr and 40KCL added - nephrology consult acute encephalopathy due to ARF/UTI chronic urine retention with chronic indwell keys - continue -changed in ER malnutrition - clear liquids - advance diet as tolerated seizure - keppra and depakote changed to IV. DVT/GI prophylaxis - SCD/CAITLIN Pepcid For more details regarding further plans, please refer to the orders. Plan Hypernatremia- Na 169- d/c N saline,increase PPN. The patient was seen and examined by me. Chart reviewed and plan of care formulated. Discussed with, reviewed and agree with ELECTRONICS WORKER's notes, plan of care and orders with modifications as necessary. For more details regarding further plans, please refer to the orders. Plan Plan For more details regarding further plans, please refer to the orders. Nutrition Consultation Dietary Evaluation: Recommendations by RD: PPN/TPN Comments: continue ppn for short term nutrition at this time/ adv diet as tolerated REC mvi, vit c per wound protocal monitor plan of care Expected Outcomes/Goals: to meet > 75% est nutr needs Malnutrition Findings: Body Fat Depletion (Non Severe: Mild Depletion Weight Status: Underweight SARY RAMESH MD 03/29/17 1054: IM PROGRESS NOTES- Assessment Assessment Not responsive. Hypernatremia- no improvement.will decrease PPN and add D5w with kcl. Prognosis is very poor. Unable to reach or leave message for daughter Pratibha on her listed ph number. PICC line. The patient was seen and examined by me. Chart reviewed and plan of care formulated. Discussed with, reviewed and agree with ELECTRONICS WORKER's notes, plan of care and orders with modifications as necessary. For more details regarding further plans, please refer to the orders. MYA TOVAR APRN Mar 29, 2017 08:45 SARY RAMESH MD Mar 29, 2017 10:54
[2017-03-29] MEDS: FAMOTIDINE 20 MG/2 ML VIAL IVP SCH (10:05)
[2017-03-29 11:00] VITALS: BP 142/46
--- NOTE | 2017-03-29 11:51 | PDOC ---
Renal-Progress Notes Subjective Notes Notes CONFUSED History of Present Illness Hx of present illness NO CHANGE Vitals Vitals Vital Signs Date Time Temp Pulse Resp B/P (MAP) Pulse Ox O2 Delivery O2 Flow Rate FiO2 03/29/17 07:23 92 Room Air 03/29/17 07:00 97.5 63 16 137/40 (72) 97.5 03/28/17 10:49 2.0 Weight Weight [ ] I.O. Intake and Output Intake and Output 03/29/17 07:00 Output Total 1200 ml Balance -1200 ml Output Urine Total 1200 ml # Bowel Movements 1 Labs Labs Laboratory Tests Test 03/29/17 05:00 White Blood Count 10.2 x10^3/uL (4.0-11.0) Red Blood Count 3.30 x10^6/uL (3.50-5.40) Hemoglobin 10.2 g/dL (12.0-15.5) Hematocrit 31.7 % (36.0-47.0) Mean Corpuscular Volume 96 fL (79-100) Mean Corpuscular Hemoglobin 31 pg (25-35) Mean Corpuscular Hemoglobin Concent 32 g/dL (31-37) Red Cell Distribution Width 18.2 % (11.5-14.5) Platelet Count 261 x10^3/uL (140-400) Neutrophils (%) (Auto) 72 % (31-73) Lymphocytes (%) (Auto) 21 % (24-48) Monocytes (%) (Auto) 7 % (0-9) Eosinophils (%) (Auto) 0 % (0-3) Basophils (%) (Auto) 0 % (0-3) Neutrophils # (Auto) 7.3 x10^3uL (1.8-7.7) Lymphocytes # (Auto) 2.1 x10^3/uL (1.0-4.8) Monocytes # (Auto) 0.7 x10^3/uL (0.0-1.1) Eosinophils # (Auto) 0.0 x10^3/uL (0.0-0.7) Basophils # (Auto) 0.0 x10^3/uL (0.0-0.2) Sodium Level 170 mmol/L (136-145) Potassium Level 3.3 mmol/L (3.5-5.1) Chloride Level 137 mmol/L (98-107) Carbon Dioxide Level 19 mmol/L (21-32) Anion Gap 14 (6-14) Blood Urea Nitrogen 41 mg/dL (7-20) Creatinine 0.9 mg/dL (0.6-1.0) Estimated GFR (Cockcroft-Gault) 71.5 Glucose Level 61 mg/dL (70-99) Calcium Level 8.1 mg/dL (8.5-10.1) Micro Micro Microbiology 03/26/17 Blood Culture - Preliminary, Resulted NO GROWTH AFTER 2 DAYS Review of Systems Constitutional: yes: no symptom reported, other (CONFUSED) Ears/Nose/Throat: Yes: no symptom reported Eyes: Yes: no symptom reported Pulmonary: Yes no symptom reported Cardiovascular: Yes no symptom reported Gastrointestional: Yes: no symptom reported Genitourinary: Yes: no symptom reported Musculoskeletal: Yes: no symptom reported Skin: Yes no symptom reported Psychiatric/Neurological: Yes: no symptom reported Endocrine: Yes: no symptom reported Physical Exam General Appearance: no apparent distress Skin: warm Respiratory: bilateral CTA Heart: S1S2 Abdomen: soft, bowel sounds present Genitourinary: bladder flat Extremities: pulses present Neurology: alert Musculoskeletal: Osteoarthritis Assessment Assessment IMP UTI SEPSIS DEHYDRATION HYPERNATREMIA JOCELYNE-BETTER PLAN HAS NOT BEEN GETTING MUCH IV'S DUE TO INADEQUATE ACCESS PICC LINE PLACEMENT TODAY CONT PPN CONT ANTIBIOTICS LABS IN AM ROCKY OLSEN MD Mar 29, 2017 11:51
--- NOTE | 2017-03-29 12:01 | PDOC ---
Infectious Disease Note Subjective Subjective Nonverbal ROS ROS GEN: Denies fevers, chills, sweats HEENT: Denies blurred vision, sore throat CV: Denies chest pain RESP: Denies shortness of air, cough GI: Denies n/v/d NEURO: Denies confusion, dizziness MSK: Denies weakness, joint pain/swelling Vital Sign Vital Signs Vital Signs Date Time Temp Pulse Resp B/P (MAP) Pulse Ox O2 Delivery O2 Flow Rate FiO2 03/29/17 07:23 92 Room Air 03/29/17 07:00 97.5 63 16 137/40 (72) 97.5 03/28/17 10:49 2.0 Physical Exam PHYSICAL EXAM GENERAL: NAD, min response HEENT: PERRL NECK: Supple, no JVD, no LN LUNGS: Clear HEART: S1S2, no gallop, no murmur ABD: Soft, NT, no organomegaly, no rebound Massey EXT: No edema, no cyanosis BEAN WEIGHER: Min response SKIN: No rash Labs Lab Laboratory Tests Test 03/29/17 05:00 White Blood Count 10.2 x10^3/uL (4.0-11.0) Red Blood Count 3.30 x10^6/uL (3.50-5.40) Hemoglobin 10.2 g/dL (12.0-15.5) Hematocrit 31.7 % (36.0-47.0) Mean Corpuscular Volume 96 fL (79-100) Mean Corpuscular Hemoglobin 31 pg (25-35) Mean Corpuscular Hemoglobin Concent 32 g/dL (31-37) Red Cell Distribution Width 18.2 % (11.5-14.5) Platelet Count 261 x10^3/uL (140-400) Neutrophils (%) (Auto) 72 % (31-73) Lymphocytes (%) (Auto) 21 % (24-48) Monocytes (%) (Auto) 7 % (0-9) Eosinophils (%) (Auto) 0 % (0-3) Basophils (%) (Auto) 0 % (0-3) Neutrophils # (Auto) 7.3 x10^3uL (1.8-7.7) Lymphocytes # (Auto) 2.1 x10^3/uL (1.0-4.8) Monocytes # (Auto) 0.7 x10^3/uL (0.0-1.1) Eosinophils # (Auto) 0.0 x10^3/uL (0.0-0.7) Basophils # (Auto) 0.0 x10^3/uL (0.0-0.2) Sodium Level 170 mmol/L (136-145) Potassium Level 3.3 mmol/L (3.5-5.1) Chloride Level 137 mmol/L (98-107) Carbon Dioxide Level 19 mmol/L (21-32) Anion Gap 14 (6-14) Blood Urea Nitrogen 41 mg/dL (7-20) Creatinine 0.9 mg/dL (0.6-1.0) Estimated GFR (Cockcroft-Gault) 71.5 Glucose Level 61 mg/dL (70-99) Calcium Level 8.1 mg/dL (8.5-10.1) Objective Assessment Complicated UTI - POA 03/26 Leukocytosis - better Acute Encephalopathy - ? related to Hypernatremia JOCELYNE - better - CT reviewed Hypernatremia H/o seizures H/o MRSA Plan Plan of Care Cont Zosyn F/u labs and cults Check renal U/S with right hydro on CT KELI SALINAS MD Mar 29, 2017 12:01
[2017-03-29] MEDS ORDERED: LIDOCAINE 1% / SOD BICARB 8.4% 20 ML VIAL. IJ ONE ×2 (13:39→13:45)
[2017-03-29] MEDS ORDERED: IOHEXOL 300 MG/ML 50 ML VIAL. ONE (14:40)
[2017-03-29 15:00] VITALS: BP 155/74
[2017-03-29] MEDS ORDERED: IOHEXOL 300 MG/ML 50 ML VIAL. IV ONE (15:00)
--- NOTE | 2017-03-29 15:07 | RAD ---
Renal ultrasound, 03/29/2017: History: Hydronephrosis The study was compromised by the patient's inability to fully cooperate. The right kidney measures 8.2 cm in length while the left kidney measures 10.2 cm. There is no evidence of hydronephrosis. A 1.2 cm cyst is present in the lower pole of the left kidney. No other renal mass is seen. The bladder is not adequately delineated due to decompression by Massey catheter. IMPRESSION: 1. No evidence of renal obstruction. 2. Small left renal cyst.
--- NOTE | 2017-03-29 15:09 | RAD ---
Exam: Fluoroscopic and ultrasound guided right percutaneous inserted central venous catheter placement 03/29/2017 3:04 PM .Indication: Poor peripheral access, IV fluids and antibiotics Technique: Informed oral and written consent were obtained. The right upper extremity was prepped and draped using sterile barrier technique. All elements of maximal sterile barrier technique including the use of a cap, mask, sterile gown, sterile gloves, large sterile sheet, appropriate hand hygiene, and 2% chlorhexidine for cutaneous antisepsis (or acceptable alternative antiseptic per current guidelines) were followed for this procedure.. Real-time ultrasound demonstrated a patent right basilic vein which was prepped and draped in usual sterile fashion. 1% lidocaine used for local anesthesia. Using real-time ultrasound guidance the access needle percutaneously punctured the selected right brachial vein. Reference ultrasound images were saved to the medical record. A guidewire was advanced through the needle to the cavoatrial junction, and a peel-away sheath placed. The catheter was cut to length and inserted through the peel-away sheath such that its tip is at the cavoatrial junction. The wire and sheath were removed, and the catheter secured in place, and a sterile dressing was applied. Catheter was found to flush and aspirate normally. No immediate complications are identified. FLUORO TIME: 5.7 minutes DOSE AREA PRODUCT: 6 Gycm2 Impression: Ultrasound and fluoroscopically guided placement of a right upper extremity PICC line.
[2017-03-29] MEDS ORDERED: CONTRAST GIVEN MC PRN (15:15)
[2017-03-29] MEDS: POTASSIUM CHLORIDE 40 MEQ in IV DEXTROSE 5% 1,000 ML IV SCH (17:52)
[2017-03-29 19:00] VITALS: BP 135/77
[2017-03-29] MEDS: LATANOPROST 0.005% OPHTH SOLUTION 2.5ML BOTTLE. OU SCH (21:12)
[2017-03-29 23:00] VITALS: BP 142/80
[2017-03-30] MEDS: NORMAL SALINE IV SCH ×4 (00:04→18:37)
[2017-03-30] MEDS: VALPROIC ACID IV SCH ×4 (00:04→18:37)
[2017-03-30] MEDS: PIPERACILLIN/TAZO IV Push 2.25 GM VIAL. IVP SCH ×4 (00:04→18:37)
[2017-03-30] MEDS: POTASSIUM CHLORIDE 40 MEQ in IV DEXTROSE 5% 1,000 ML IV SCH ×2 (02:00→16:30)
[2017-03-30 03:00] VITALS: BP 117/66
[2017-03-30 06:47] LABS: CALCIUM 7.8 mg/dL (8.5-10.1); CREATININE 0.7 mg/dL (0.6-1.0); GFR 95.6; POTASSIUM 3.7 mmol/L (3.5-5.1)
[2017-03-30 06:55] LABS: BASO % 0 % (0-3); EOS % 0 % (0-3); HEMATOCRIT 30.7 % (36.0-47.0); HEMOGLOBIN 9.9 g/dL (12.0-15.5); LYMPH # 1.7 x10^3/uL (1.0-4.8); LYMPH % 21 % (24-48); MEAN CORPUSCULAR HEMOGLOBIN 31 pg (25-35); MEAN CORPUSCULAR HGB CONC 32 g/dL (31-37); MEAN CORPUSCULAR VOLUME 95 fL (79-100); MONO % 6 % (0-9); NEUT % 72 % (31-73); PLATELET COUNT 201 x10^3/uL (140-400); RED BLOOD COUNT 3.22 x10^6/uL (3.50-5.40); RED CELL DISTRIBUTION WIDTH 18.4 % (11.5-14.5); WHITE BLOOD COUNT 7.8 x10^3/uL (4.0-11.0)
[2017-03-30 07:00] VITALS: BP 133/67
[2017-03-30] MEDS: ALBUTEROL SULFATE 2.5 MG/3 ML NEBU. NEB SCH ×2 (07:57→19:48)
--- NOTE | 2017-03-30 09:01 | PDOC ---
DARÍOMary KayMYA SOUZA ESTATE MANAGER 03/30/17 0901: IM PROGRESS NOTES- Subjective Subjective non responsive Objective Objective non responsive Vitals Vital Signs Date Time Temp Pulse Resp B/P (MAP) Pulse Ox O2 Delivery O2 Flow Rate FiO2 03/30/17 08:00 95 Room Air 03/30/17 03:00 97.4 69 22 117/66 (83) 97.4 Input & Output Intake and Output 03/30/17 07:00 Output Total 1575 ml Balance -1575 ml Output Urine Total 1575 ml Physical Exam Physical Exam General appearance - non responsive, ill appearing, and groans with assessment Mental Status - non responsive, will arouse to name Head - normal Chest - clear to auscultation, no wheezes, rales or rhonchi, symmetric air entry Heart - S1 and S2 normal Abdomen - soft, nontender, nondistended, BS+ Gu- keys iza urine Neurological - non responsive Musculoskeletal - no muscular tenderness noted Extremities - no pedal edema Skin - warm and dry Labs Laboratory Tests Test 03/29/17 05:00 03/30/17 06:20 White Blood Count 10.2 x10^3/uL (4.0-11.0) 7.8 x10^3/uL (4.0-11.0) Red Blood Count 3.30 x10^6/uL (3.50-5.40) 3.22 x10^6/uL (3.50-5.40) Hemoglobin 10.2 g/dL (12.0-15.5) 9.9 g/dL (12.0-15.5) Hematocrit 31.7 % (36.0-47.0) 30.7 % (36.0-47.0) Mean Corpuscular Volume 96 fL (79-100) 95 fL (79-100) Mean Corpuscular Hemoglobin 31 pg (25-35) 31 pg (25-35) Mean Corpuscular Hemoglobin Concent 32 g/dL (31-37) 32 g/dL (31-37) Red Cell Distribution Width 18.2 % (11.5-14.5) 18.4 % (11.5-14.5) Platelet Count 261 x10^3/uL (140-400) 201 x10^3/uL (140-400) Neutrophils (%) (Auto) 72 % (31-73) 72 % (31-73) Lymphocytes (%) (Auto) 21 % (24-48) 21 % (24-48) Monocytes (%) (Auto) 7 % (0-9) 6 % (0-9) Eosinophils (%) (Auto) 0 % (0-3) 0 % (0-3) Basophils (%) (Auto) 0 % (0-3) 0 % (0-3) Neutrophils # (Auto) 7.3 x10^3uL (1.8-7.7) 5.6 x10^3uL (1.8-7.7) Lymphocytes # (Auto) 2.1 x10^3/uL (1.0-4.8) 1.7 x10^3/uL (1.0-4.8) Monocytes # (Auto) 0.7 x10^3/uL (0.0-1.1) 0.5 x10^3/uL (0.0-1.1) Eosinophils # (Auto) 0.0 x10^3/uL (0.0-0.7) 0.0 x10^3/uL (0.0-0.7) Basophils # (Auto) 0.0 x10^3/uL (0.0-0.2) 0.0 x10^3/uL (0.0-0.2) Sodium Level 170 mmol/L (136-145) 162 mmol/L (136-145) Potassium Level 3.3 mmol/L (3.5-5.1) 3.7 mmol/L (3.5-5.1) Chloride Level 137 mmol/L (98-107) 130 mmol/L (98-107) Carbon Dioxide Level 19 mmol/L (21-32) 21 mmol/L (21-32) Anion Gap 14 (6-14) 11 (6-14) Blood Urea Nitrogen 41 mg/dL (7-20) 37 mg/dL (7-20) Creatinine 0.9 mg/dL (0.6-1.0) 0.7 mg/dL (0.6-1.0) Estimated GFR (Cockcroft-Gault) 71.5 95.6 Glucose Level 61 mg/dL (70-99) 78 mg/dL (70-99) Calcium Level 8.1 mg/dL (8.5-10.1) 7.8 mg/dL (8.5-10.1) Laboratory Tests Test 03/30/17 06:20 White Blood Count 7.8 x10^3/uL (4.0-11.0) Red Blood Count 3.22 x10^6/uL (3.50-5.40) Hemoglobin 9.9 g/dL (12.0-15.5) Hematocrit 30.7 % (36.0-47.0) Mean Corpuscular Volume 95 fL (79-100) Mean Corpuscular Hemoglobin 31 pg (25-35) Mean Corpuscular Hemoglobin Concent 32 g/dL (31-37) Red Cell Distribution Width 18.4 % (11.5-14.5) Platelet Count 201 x10^3/uL (140-400) Neutrophils (%) (Auto) 72 % (31-73) Lymphocytes (%) (Auto) 21 % (24-48) Monocytes (%) (Auto) 6 % (0-9) Eosinophils (%) (Auto) 0 % (0-3) Basophils (%) (Auto) 0 % (0-3) Neutrophils # (Auto) 5.6 x10^3uL (1.8-7.7) Lymphocytes # (Auto) 1.7 x10^3/uL (1.0-4.8) Monocytes # (Auto) 0.5 x10^3/uL (0.0-1.1) Eosinophils # (Auto) 0.0 x10^3/uL (0.0-0.7) Basophils # (Auto) 0.0 x10^3/uL (0.0-0.2) Sodium Level 162 mmol/L (136-145) Potassium Level 3.7 mmol/L (3.5-5.1) Chloride Level 130 mmol/L (98-107) Carbon Dioxide Level 21 mmol/L (21-32) Anion Gap 11 (6-14) Blood Urea Nitrogen 37 mg/dL (7-20) Creatinine 0.7 mg/dL (0.6-1.0) Estimated GFR (Cockcroft-Gault) 95.6 Glucose Level 78 mg/dL (70-99) Calcium Level 7.8 mg/dL (8.5-10.1) Meds Current Medications Heparin Sodium/ Sodium Chloride 80 unit 1X ONCE IV ; Start 03/29/17 at 13:45; Stop 03/29/17 at 13:46; Status DC Info (Do NOT chart on this entry -- for MONITORING) 1 each PRN DAILY PRN MC SEE COMMENTS; Start 03/29/17 at 15:15; Stop 03/31/17 at 15:14 Iohexol (Omnipaque 300 Mg/ml) 6 ml 1X ONCE IV Last administered on 03/29/17t 15:04; Start 03/29/17 at 15:00; Stop 03/29/17 at 15:02; Status DC Iohexol (Omnipaque 300 Mg/ml) 50 ml STK-MED ONCE .ROUTE ; Start 03/29/17 at 14: 40; Stop 03/29/17 at 14:41; Status DC Lidocaine/Sodium Bicarbonate (Buffered Lidocaine 1%) 3 ml 1X ONCE IJ Last administered on 03/29/17 15:03; Start 03/29/17 at 13:45; Stop 03/29/17 at 13 :46; Status DC Lidocaine/Sodium Bicarbonate (Buffered Lidocaine 1%) 20 ml STK-MED ONCE IJ ; Start 03/29/17 at 13:39; Stop 03/29/17 at 13:40; Status DC Potassium Chloride 40 meq/ Dextrose 1,020 ml @ 60 mls/hr Q17H IV Last administered on 03/29/17 17:52; Start 03/29/17 at 09:00 Assessment Assessment 1. UTI complicated/sepsis with h/o chronic keys for urine retention 2. acute metabolic encephalopathy with underlying Alzheimer dementia 3. ARF JOCELYNE VMN dehydration with underlying CKD II 4. acute hypernatremia 5. acute hypokalemia 6. HTN 7. Alzheimer dementia 8. urine retention with chronic indwelling keys 9. COPD 10. chronic moderate malnutrition 11. seizure disorder 12. GERD 13. Peripheral neuropathy 14. PVD 15. CKD II 16. OA generalized 17. anemia chronic disease 18. depression 19. hyperlipidemia 20. chronic constipation 21 h/o traumatic comminuted L femoral intratrochanteric neck fracture post traumatic fall 2014 no surgical intervention 22. severe PCL malnutrition with underlying chronic PCL malnutrition 23. severe weakness and debility 24. dysphagia with Regular diet mechanical soft chopped texture thin liquids PLAN: 03/30/17 UTI sepsis - zosyn continnues - Renal sono 03/29 no hydronephrosis -WBC 6.2 ARF - BUN/Cr 37/0.7 resolved hypokalemia - resolved K 3.5 - D540KL 60cc/hr hypernatremia - Na 162 -slowly improving PPN 60cc/hr D5 40K 60cc/hr Anemia - Hgb 9.9 -monitor malnutrition - PPN 60cc/hr diarrhea - small amount liquid dark green stool continue current plan of care 03/29/17 UTI sepsis - zosyn continues - moderate R hydronephrosis per CT - WBC 10.2 improved - keys leaking changed to #18F last evening ARF - improving BUN/Cr 41/0.9 hypernatremia - unchanged - NA on admit 169 today 170 D5W 40KCL 75cc/hr to be started hypokalemia - K 3.3 - will need KCL replacement - PICC line pending - IV present but tenuous stability - D5W 40KCL 75cc/hr to be started anemia - Hgb 10.2 abnormal CXR - CT chest revealed non calcified nodule chronic, benign - no further workup malnutrition - PPN 100cchr 03/28/17 UTI sepsis - Zosyn IV -culture pending - BC negative ARF - BUN/Cr 46/1.1 - improving - acute metabolic encephalopathy - minimal improvement - not taking po meals/meds severe malnutrition - not eating - PPN 100cc/hr anemia - chronic Admit Hgb 13.2 today 11.5 - drop secondary to rehydration abnormal CXR - L basilar nodule? - CT chest w/o contrast For further plan of care, please refer to the orders. 03/27/17 UTI/sepsis - Admit WBC 12.5 - LA 2.3 decreased to 2.1 - Rocephin IV daily - ID consult - CBC pending ARF - IV NS in ED - decreased to NS 100cc/hr acute hypernatremia/hypokalemia - Admit NA 167 K 2.9 - NS IV - 40K per IVF x 1 - BMP pending - current IV NS 100cc/hr and 40KCL added - nephrology consult acute encephalopathy due to ARF/UTI chronic urine retention with chronic indwell keys - continue -changed in ER malnutrition - clear liquids - advance diet as tolerated seizure - keppra and depakote changed to IV. DVT/GI prophylaxis - SCD/CAITLIN Pepcid For more details regarding further plans, please refer to the orders. Plan Plan For more details regarding further plans, please refer to the orders. Nutrition Consultation Dietary Evaluation: Recommendations by RD: PPN/TPN Comments: continue ppn for short term nutrition at this time/ adv diet as tolerated REC mvi, vit c per wound protocal monitor plan of care Expected Outcomes/Goals: to meet > 75% est nutr needs Malnutrition Findings: Body Fat Depletion (Non Severe: Mild Depletion Weight Status: Underweight SARY RAMESH MD 03/30/17 1027: IM PROGRESS NOTES- Assessment Assessment The patient was seen and examined by me. Chart reviewed and plan of care formulated. Discussed with, reviewed and agree with SOFTWARE CONFIGURATION SPECIALIST's notes, plan of care and orders with modifications as necessary. For more details regarding further plans, please refer to the orders. MYA TOVAR APRN Mar 30, 2017 09:01 SARY RAMESH MD Mar 30, 2017 10:27
[2017-03-30] MEDS: FAMOTIDINE 20 MG/2 ML VIAL IVP SCH (10:00)
[2017-03-30 11:00] VITALS: BP 147/75
--- NOTE | 2017-03-30 11:33 | PDOC ---
Infectious Disease Note Subjective Subjective Nonverbal ROS ROS Unobtainable Vital Sign Vital Signs Vital Signs Date Time Temp Pulse Resp B/P (MAP) Pulse Ox O2 Delivery O2 Flow Rate FiO2 03/30/17 08:00 95 Room Air 03/30/17 07:00 98.5 67 20 133/67 (89) 98.5 Physical Exam PHYSICAL EXAM GENERAL: NAD, min response NECK: Supple, no JVD, no LN LUNGS: Clear HEART: S1S2, no gallop, no murmur ABD: Soft, NT, no organomegaly, no rebound Massey EXT: No edema, no cyanosis DYE CAN OPERATOR: Min response SKIN: No rash Labs Lab Laboratory Tests Test 03/30/17 06:20 White Blood Count 7.8 x10^3/uL (4.0-11.0) Red Blood Count 3.22 x10^6/uL (3.50-5.40) Hemoglobin 9.9 g/dL (12.0-15.5) Hematocrit 30.7 % (36.0-47.0) Mean Corpuscular Volume 95 fL (79-100) Mean Corpuscular Hemoglobin 31 pg (25-35) Mean Corpuscular Hemoglobin Concent 32 g/dL (31-37) Red Cell Distribution Width 18.4 % (11.5-14.5) Platelet Count 201 x10^3/uL (140-400) Neutrophils (%) (Auto) 72 % (31-73) Lymphocytes (%) (Auto) 21 % (24-48) Monocytes (%) (Auto) 6 % (0-9) Eosinophils (%) (Auto) 0 % (0-3) Basophils (%) (Auto) 0 % (0-3) Neutrophils # (Auto) 5.6 x10^3uL (1.8-7.7) Lymphocytes # (Auto) 1.7 x10^3/uL (1.0-4.8) Monocytes # (Auto) 0.5 x10^3/uL (0.0-1.1) Eosinophils # (Auto) 0.0 x10^3/uL (0.0-0.7) Basophils # (Auto) 0.0 x10^3/uL (0.0-0.2) Sodium Level 162 mmol/L (136-145) Potassium Level 3.7 mmol/L (3.5-5.1) Chloride Level 130 mmol/L (98-107) Carbon Dioxide Level 21 mmol/L (21-32) Anion Gap 11 (6-14) Blood Urea Nitrogen 37 mg/dL (7-20) Creatinine 0.7 mg/dL (0.6-1.0) Estimated GFR (Cockcroft-Gault) 95.6 Glucose Level 78 mg/dL (70-99) Calcium Level 7.8 mg/dL (8.5-10.1) Objective Assessment Complicated UTI - POA 03/26 Leukocytosis - better Acute Encephalopathy - ? related to Hypernatremia JOCELYNE - better - CT reviewed. U/S neg for hydro Hypernatremia H/o seizures H/o MRSA Plan Plan of Care Cont Zosyn F/u labs and cults KELI SALINAS MD Mar 30, 2017 11:33
--- NOTE | 2017-03-30 11:55 | PDOC ---
Renal-Progress Notes Subjective Notes Notes CONFUSED History of Present Illness Hx of present illness NO CHANGE Vitals Vitals Vital Signs Date Time Temp Pulse Resp B/P (MAP) Pulse Ox O2 Delivery O2 Flow Rate FiO2 03/30/17 11:00 97.7 68 18 147/75 (99) 90 Room Air 97.7 Weight Weight [ ] I.O. Intake and Output Intake and Output 03/30/17 07:00 Output Total 1575 ml Balance -1575 ml Output Urine Total 1575 ml Labs Labs Laboratory Tests Test 03/30/17 06:20 White Blood Count 7.8 x10^3/uL (4.0-11.0) Red Blood Count 3.22 x10^6/uL (3.50-5.40) Hemoglobin 9.9 g/dL (12.0-15.5) Hematocrit 30.7 % (36.0-47.0) Mean Corpuscular Volume 95 fL (79-100) Mean Corpuscular Hemoglobin 31 pg (25-35) Mean Corpuscular Hemoglobin Concent 32 g/dL (31-37) Red Cell Distribution Width 18.4 % (11.5-14.5) Platelet Count 201 x10^3/uL (140-400) Neutrophils (%) (Auto) 72 % (31-73) Lymphocytes (%) (Auto) 21 % (24-48) Monocytes (%) (Auto) 6 % (0-9) Eosinophils (%) (Auto) 0 % (0-3) Basophils (%) (Auto) 0 % (0-3) Neutrophils # (Auto) 5.6 x10^3uL (1.8-7.7) Lymphocytes # (Auto) 1.7 x10^3/uL (1.0-4.8) Monocytes # (Auto) 0.5 x10^3/uL (0.0-1.1) Eosinophils # (Auto) 0.0 x10^3/uL (0.0-0.7) Basophils # (Auto) 0.0 x10^3/uL (0.0-0.2) Sodium Level 162 mmol/L (136-145) Potassium Level 3.7 mmol/L (3.5-5.1) Chloride Level 130 mmol/L (98-107) Carbon Dioxide Level 21 mmol/L (21-32) Anion Gap 11 (6-14) Blood Urea Nitrogen 37 mg/dL (7-20) Creatinine 0.7 mg/dL (0.6-1.0) Estimated GFR (Cockcroft-Gault) 95.6 Glucose Level 78 mg/dL (70-99) Calcium Level 7.8 mg/dL (8.5-10.1) Micro Micro Microbiology 03/26/17 Blood Culture - Preliminary, Resulted NO GROWTH AFTER 3 DAYS 03/26/17 Urine Culture - Final, Complete 03/26/17 Urine Culture Result 1 (MILTON) - Final, Complete Review of Systems Constitutional: yes: no symptom reported, other (CONFUSED) Ears/Nose/Throat: Yes: no symptom reported Eyes: Yes: no symptom reported Pulmonary: Yes no symptom reported Cardiovascular: Yes no symptom reported Gastrointestional: Yes: no symptom reported Genitourinary: Yes: no symptom reported Musculoskeletal: Yes: no symptom reported Skin: Yes no symptom reported Psychiatric/Neurological: Yes: no symptom reported Endocrine: Yes: no symptom reported Physical Exam General Appearance: no apparent distress Skin: warm Respiratory: bilateral CTA Heart: S1S2 Abdomen: soft, bowel sounds present Genitourinary: bladder flat Extremities: pulses present Neurology: alert Musculoskeletal: Osteoarthritis Assessment Assessment IMP UTI SEPSIS DEHYDRATION HYPERNATREMIA LOW K JOCELYNE-BETTER PLAN CONT PPN AND IVF'S CONT ANTIBIOTICS LABS IN AM ROCKY OLSEN MD Mar 30, 2017 11:55
[2017-03-30 15:00] VITALS: BP 119/79
[2017-03-30] MEDS: AMINO AC 3%/ELECTROLYTE/GLYCER 1,000 ML IV SCH (16:34)
[2017-03-30 19:00] VITALS: BP 152/75
[2017-03-30] MEDS: LATANOPROST 0.005% OPHTH SOLUTION 2.5ML BOTTLE. OU SCH (22:57)
[2017-03-30 23:00] VITALS: BP 147/59
[2017-03-31] MEDS: NORMAL SALINE IV SCH ×5 (00:11→23:35)
[2017-03-31] MEDS: VALPROIC ACID IV SCH ×5 (00:11→23:35)
[2017-03-31] MEDS: PIPERACILLIN/TAZO IV Push 2.25 GM VIAL. IVP SCH ×5 (00:11→23:35)
[2017-03-31 02:53] VITALS: BP 133/62
[2017-03-31 04:08] LABS: BASO % 0 % (0-3); EOS % 1 % (0-3); HEMATOCRIT 26.2 % (36.0-47.0); HEMOGLOBIN 8.8 g/dL (12.0-15.5); LYMPH # 1.5 x10^3/uL (1.0-4.8); LYMPH % 19 % (24-48); MEAN CORPUSCULAR HEMOGLOBIN 31 pg (25-35); MEAN CORPUSCULAR HGB CONC 34 g/dL (31-37); MEAN CORPUSCULAR VOLUME 93 fL (79-100); MONO % 7 % (0-9); NEUT % 74 % (31-73); PLATELET COUNT 147 x10^3/uL (140-400); RED BLOOD COUNT 2.82 x10^6/uL (3.50-5.40); RED CELL DISTRIBUTION WIDTH 17.6 % (11.5-14.5)
[2017-03-31 04:17] LABS: CALCIUM 7.4 mg/dL (8.5-10.1); CREATININE 0.7 mg/dL (0.6-1.0); GFR 95.6; POTASSIUM 3.5 mmol/L (3.5-5.1)
[2017-03-31] MEDS: AMINO AC 3%/ELECTROLYTE/GLYCER 1,000 ML IV SCH (06:23)
[2017-03-31 07:00] VITALS: BP 139/78
[2017-03-31] MEDS: ALBUTEROL SULFATE 2.5 MG/3 ML NEBU. NEB SCH ×2 (09:07→20:56)
[2017-03-31] MEDS: FAMOTIDINE 20 MG/2 ML VIAL IVP SCH (09:36)
--- NOTE | 2017-03-31 10:11 | PDOC ---
SUBJECTIVE ROS JOCELYNE / ^ Na Barely opens eyes to shaking OBJECTIVE Vital Signs Vital Signs Date Time Temp Pulse Resp B/P (MAP) Pulse Ox O2 Delivery O2 Flow Rate FiO2 03/31/17 09:07 99 Room Air 03/31/17 07:00 97.7 84 30 139/78 (98) 97.7 03/30/17 08:00 2.0 I & 0 Intake and Output 03/31/17 07:00 Intake Total 0 ml Output Total 1250 ml Balance -1250 ml Intake Oral 0 ml Output Urine Total 1250 ml # Bowel Movements 2 PHYSICAL EXAM Physical Exam GEN: barely Awake, Oriented x 0, In no distress EYES: Vision Unchanged, Conjunctiva Normal EN: No EN Drainage, Mucous Membranes dryish NECK: no JVD, no JVP, Supple, no Thyromegaly CVS: S1S2, no Murmur, No Gallop, No Rub,no Edema RESP: no Rales, no Rhonchi,no Acc. Muscle Use GI: BS + ve, NO Bruit, Non Tender, Non Distended : no CVA tenderness, no Suprapubic Tenderness DIAGNOSIS/ASSESSMENT Assessment & Plan UTI with SEPSIS: CONT ANTIBIOTICS per ID DEHYDRATION - ine the setting of ABOVE - better with IVF as ordered HYPERNATREMIA - ct Hypotonic IVF as ordered LOWish K - currently repalced ensuing Met Acidosis - watch trend - may need K Acetate added to IVF reassess code status? Problems: COMMENT/RELEVANT DATA Meds Current Medications Medications (Trade) Dose Ordered Sig/Aidee Start Time Stop Time Status Last Admin Dose Admin Acetaminophen (Acetaminophen Supp) 650 mg PRN Q6HRS PRN 03/28/17 13:30 Acetaminophen (Tylenol) 650 mg PRN Q6HRS PRN 03/28/17 09:15 03/28/17 13:19 DC Acetaminophen/ Hydrocodone Bitart (Lortab 5/325) 1 tab QID 03/27/17 21:00 03/28/17 12:40 DC Albuterol Sulfate (Ventolin Neb Soln) 2.5 mg BID 03/27/17 21:00 03/31/17 09:07 2.5 MG Amino Acids/ Glycerin/ Electrolytes 1,000 ml @ 75 mls/hr [id number] 03/27/17 12:00 03/31/17 06:23 75 MLS/HR Ceftriaxone Sodium 50 ml @ 100 mls/hr 1X ONCE 03/26/17 21:15 03/26/17 21:44 DC 03/26/17 22:01 100 MLS/HR Citalopram Hydrobromide (CeleXA) 10 mg DAILY 03/28/17 09:00 03/28/17 12:40 DC Famotidine (Pepcid Vial) 20 mg DAILY 03/27/17 10:30 03/31/17 09:36 20 MG Heparin Sodium/ Sodium Chloride 80 unit 1X ONCE 03/29/17 13:45 03/29/17 13:46 DC Info (Do NOT chart on this entry -- for MONITORING) 1 each PRN DAILY PRN 03/29/17 15:15 03/31/17 15:14 Iohexol (Omnipaque 300 Mg/ml) 6 ml 1X ONCE 03/29/17 15:00 03/29/17 15:02 DC 03/29/17 15:04 6 ML Lactobacillus Rhamnosus (Culturelle) 1 cap BID 03/27/17 21:00 03/28/17 12:40 DC Latanoprost (Xalatan) 1 drop QHS 03/27/17 21:00 03/30/17 22:57 1 DROP Levetiracetam 250 mg/Sodium Chloride 102.5 ml @ 420 mls/hr Q12HR 03/27/17 10:30 03/31/17 09:35 420 MLS/HR Lidocaine/Sodium Bicarbonate (Buffered Lidocaine 1%) 20 ml STK-MED ONCE 03/29/17 13:39 03/29/17 13:40 DC Loperamide HCl (Imodium) 2 mg PRN DAILY PRN 03/27/17 20:30 Mirtazapine (Remeron) 15 mg QHS 03/27/17 21:00 03/28/17 12:40 DC Multivitamins (Thera M Plus) 1 tab DAILY 03/28/17 09:00 03/28/17 12:41 DC Non-Formulary Medication 500 mg TID 03/27/17 21:00 03/27/17 21:00 DC Ondansetron HCl (Zofran Odt) 4 mg QIDPRN PRN 03/27/17 20:00 03/28/17 09:10 DC Ondansetron HCl (Zofran) 4 mg PRN Q8HRS PRN 03/27/17 09:15 Piperacillin Sod/ Tazobactam Sod (Zosyn) 2.25 gm Q6HRS 03/27/17 12:00 03/31/17 06:19 2.25 GM Piperacillin Sod/ Tazobactam Sod 2.25 gm/Dextrose 50 ml @ 100 mls/hr Q6HRS 03/27/17 12:00 UNV Pneumococcal Polyvalent Vaccine (Do NOT chart on this placeholder) 1 each PRN DAILY PRN 03/27/17 02:30 Cancel Polyethylene Glycol (miraLAX PACKET) 17 gm DAILY 03/28/17 09:00 03/28/17 12:40 DC Potassium Chloride 40 meq/ Dextrose 1,020 ml @ 60 mls/hr Q17H 03/29/17 09:00 03/30/17 16:30 60 MLS/HR Potassium Chloride 40 meq/ Sodium Chloride 1,020 ml @ 100 mls/hr [id number] 03/27/17 09:15 UNV Potassium Chloride/Sodium Chloride 1,000 ml @ 100 mls/hr Q10H 03/27/17 09:30 03/27/17 12:01 DC 03/27/17 11:35 100 MLS/HR Potassium Chloride (KCl Oral Soln) 40 meq ONCE ONCE 03/27/17 12:45 03/27/17 12:46 DC 03/27/17 13:19 40 MEQ Potassium Chloride (Klor-Con) 10 meq DAILY 03/28/17 09:00 03/28/17 12:41 DC Sodium Chloride 1,000 ml @ 60 mls/hr [id number] 03/27/17 12:00 03/28/17 07:58 DC 03/27/17 12:41 60 MLS/HR Valproic Acid 1000 mg/Sodium Chloride 60 ml @ 55 mls/hr Q6HRS 03/27/17 12:00 03/31/17 06:19 55 MLS/HR Vitamin D (Vitamin D3) 1,000 unit DAILY 03/28/17 09:00 03/28/17 12:40 DC Lab Laboratory Tests Test 03/31/17 04:00 White Blood Count 8.0 x10^3/uL (4.0-11.0) Red Blood Count 2.82 x10^6/uL (3.50-5.40) Hemoglobin 8.8 g/dL (12.0-15.5) Hematocrit 26.2 % (36.0-47.0) Mean Corpuscular Volume 93 fL (79-100) Mean Corpuscular Hemoglobin 31 pg (25-35) Mean Corpuscular Hemoglobin Concent 34 g/dL (31-37) Red Cell Distribution Width 17.6 % (11.5-14.5) Platelet Count 147 x10^3/uL (140-400) Neutrophils (%) (Auto) 74 % (31-73) Lymphocytes (%) (Auto) 19 % (24-48) Monocytes (%) (Auto) 7 % (0-9) Eosinophils (%) (Auto) 1 % (0-3) Basophils (%) (Auto) 0 % (0-3) Neutrophils # (Auto) 5.9 x10^3uL (1.8-7.7) Lymphocytes # (Auto) 1.5 x10^3/uL (1.0-4.8) Monocytes # (Auto) 0.5 x10^3/uL (0.0-1.1) Eosinophils # (Auto) 0.1 x10^3/uL (0.0-0.7) Basophils # (Auto) 0.0 x10^3/uL (0.0-0.2) Sodium Level 150 mmol/L (136-145) Potassium Level 3.5 mmol/L (3.5-5.1) Chloride Level 119 mmol/L (98-107) Carbon Dioxide Level 20 mmol/L (21-32) Anion Gap 11 (6-14) Blood Urea Nitrogen 31 mg/dL (7-20) Creatinine 0.7 mg/dL (0.6-1.0) Estimated GFR (Cockcroft-Gault) 95.6 Glucose Level 66 mg/dL (70-99) Calcium Level 7.4 mg/dL (8.5-10.1) JULIO CALDERON MD Mar 31, 2017 10:11
[2017-03-31] MEDS: POTASSIUM CHLORIDE 40 MEQ in IV DEXTROSE 5% 1,000 ML IV SCH (10:56)
[2017-03-31 11:20] VITALS: BP 154/69
--- NOTE | 2017-03-31 12:04 | PDOC ---
PROGRESS NOTES Subjective Subjective non verbal Objective Objective Vital Signs Date Time Temp Pulse Resp B/P (MAP) Pulse Ox O2 Delivery O2 Flow Rate FiO2 03/31/17 11:20 97.5 84 28 154/69 (97) 97 Room Air 97.5 03/30/17 08:00 2.0 Intake and Output 03/31/17 07:00 Intake Total 0 ml Output Total 1250 ml Balance -1250 ml Intake Oral 0 ml Output Urine Total 1250 ml # Bowel Movements 2 Physical Exam Abdomen: Normal bowel sounds, Soft, No tenderness Heart: Regular rate, Normal S1, Normal S2 Extremities: No clubbing, Other (DIFFUSE MUSCLE ATROPHY) General: Alert, Cooperative, No acute distress HEENT: Atraumatic, EOMI, Other (DRY MUCOSA) MUSCULOSKELETAL: No joint tenderness, No swelling, No muscular tenderness noted , Osteoarthritic changes both hands Neuro: Other (UNABLE TO COOPERATE) Psych/Mental Status: Other (CONFUSED BUT NO ASYMMETRY) Skin: No rashes, No significant lesion Diagnosis Problem List Problems Medical Problems: (1) Altered mental status Status: Acute (2) Hypernatremia Status: Acute (3) Hypokalemia Status: Acute (4) Sepsis Status: Acute (5) UTI (urinary tract infection) Status: Acute Assessment Assessment .Assessment: Hypernatremia 1. UTI complicated/sepsis with h/o chronic keys for urine retention 2. acute metabolic encephalopathy with underlying Alzheimer dementia 3. ARF JOCELYNE VMN dehydration with underlying CKD II 4. acute hypernatremia 5. acute hypokalemia 6. HTN 7. Alzheimer dementia 8. urine retention with chronic indwelling keys 9. COPD 10. chronic moderate malnutrition 11. seizure disorder 12. GERD 13. Peripheral neuropathy 14. PVD 15. CKD II 16. OA generalized 17. anemia chronic disease 18. depression 19. hyperlipidemia 20. chronic constipation PLAN: NA 150 down from 160. continue ProcalAmine and D5W UTI sepsis - zosyn continnues - Renal sono 03/29 no hydronephrosis -WBC 6.2 ARF - BUN/Cr 37/0.7 resolved hypokalemia - resolved K 3.5 - [id number] 60cc/hr hypernatremia - Na 150 -slowly improving PPN 60cc/hr D5 40K 60cc/hr Anemia - Hgb 9.9 -monitor malnutrition - PPN 60cc/hr diarrhea - small amount liquid dark green stool continue current plan of care urine c/s -neg Problems: Plan Plan of Care Problems Medical Problems: (1) Altered mental status Status: Acute (2) Hypernatremia Status: Acute (3) Hypokalemia Status: Acute (4) Sepsis Status: Acute (5) UTI (urinary tract infection) Status: Acute Comment Review of Relevant I have reviewed the following items efrain (where applicable) has been applied. Labs Laboratory Tests Test 03/31/17 04:00 White Blood Count 8.0 x10^3/uL (4.0-11.0) Red Blood Count 2.82 x10^6/uL (3.50-5.40) Hemoglobin 8.8 g/dL (12.0-15.5) Hematocrit 26.2 % (36.0-47.0) Mean Corpuscular Volume 93 fL (79-100) Mean Corpuscular Hemoglobin 31 pg (25-35) Mean Corpuscular Hemoglobin Concent 34 g/dL (31-37) Red Cell Distribution Width 17.6 % (11.5-14.5) Platelet Count 147 x10^3/uL (140-400) Neutrophils (%) (Auto) 74 % (31-73) Lymphocytes (%) (Auto) 19 % (24-48) Monocytes (%) (Auto) 7 % (0-9) Eosinophils (%) (Auto) 1 % (0-3) Basophils (%) (Auto) 0 % (0-3) Neutrophils # (Auto) 5.9 x10^3uL (1.8-7.7) Lymphocytes # (Auto) 1.5 x10^3/uL (1.0-4.8) Monocytes # (Auto) 0.5 x10^3/uL (0.0-1.1) Eosinophils # (Auto) 0.1 x10^3/uL (0.0-0.7) Basophils # (Auto) 0.0 x10^3/uL (0.0-0.2) Sodium Level 150 mmol/L (136-145) Potassium Level 3.5 mmol/L (3.5-5.1) Chloride Level 119 mmol/L (98-107) Carbon Dioxide Level 20 mmol/L (21-32) Anion Gap 11 (6-14) Blood Urea Nitrogen 31 mg/dL (7-20) Creatinine 0.7 mg/dL (0.6-1.0) Estimated GFR (Cockcroft-Gault) 95.6 Glucose Level 66 mg/dL (70-99) Calcium Level 7.4 mg/dL (8.5-10.1) Microbiology 03/26/17 Blood Culture - Preliminary, Resulted NO GROWTH AFTER 4 DAYS 03/26/17 Urine Culture - Final, Complete 03/26/17 Urine Culture Result 1 ([facility]) - Final, Complete Vitals/I & O Vital Sign - Last 24 Hours 03/30/17 03/30/17 03/30/17 03/30/17 15:00 19:00 19:50 20:00 Temp 97.8 98.4 97.8 98.4 Pulse 77 70 Resp 18 15 B/P (MAP) 119/79 (92) 152/75 (100) Pulse Ox 91 96 95 O2 Delivery Room Air Room Air Room Air Room Air 03/30/17 03/31/17 03/31/17 03/31/17 23:00 02:53 07:00 08:00 Temp 97.7 97.7 Pulse 81 78 84 Resp 17 18 30 B/P (MAP) 147/59 (88) 133/62 (85) 139/78 (98) Pulse Ox 100 98 100 O2 Delivery Room Air Room Air Room Air Room Air 03/31/17 03/31/17 09:07 11:20 Temp 97.5 97.5 Pulse 84 Resp 28 B/P (MAP) 154/69 (97) Pulse Ox 99 97 O2 Delivery Room Air Room Air Intake and Output 03/30/17 03/30/17 03/31/17 15:00 23:00 07:00 Intake Total 0 ml Output Total 800 ml 450 ml Balance -800 ml -450 ml Nutrition Consultation Dietary Evaluation: Recommendations by RD: PPN/TPN Comments: continue ppn for short term nutrition at this time/ adv diet as tolerated REC mvi, vit c per wound protocal consider TF for nutrition needs Expected Outcomes/Goals: to meet > 75% est nutr needs- protein needs met via ppn, goal ongoing Malnutrition Findings: Body Fat Depletion (Non Severe: Mild Depletion Weight Status: Underweight TWAN JAMA MD Mar 31, 2017 12:04
--- NOTE | 2017-03-31 13:58 | PDOC ---
Infectious Disease Note Subjective Subjective Nonverbal PPN No fever + BM ROS ROS Unobtainable Vital Sign Vital Signs Vital Signs Date Time Temp Pulse Resp B/P (MAP) Pulse Ox O2 Delivery O2 Flow Rate FiO2 03/31/17 11:20 97.5 84 28 154/69 (97) 97 Room Air 97.5 03/30/17 08:00 2.0 Physical Exam PHYSICAL EXAM GENERAL: Softly moans with turning LUNGS: Clear HEART: S1S2 ABD: Soft : Massey EXT: No edema, no cyanosis COPY READER: Eyes open, no follow commands, nonverbal SKIN: No rash RUE-PICC. clean Labs Lab Laboratory Tests Test 03/31/17 04:00 White Blood Count 8.0 x10^3/uL (4.0-11.0) Red Blood Count 2.82 x10^6/uL (3.50-5.40) Hemoglobin 8.8 g/dL (12.0-15.5) Hematocrit 26.2 % (36.0-47.0) Mean Corpuscular Volume 93 fL (79-100) Mean Corpuscular Hemoglobin 31 pg (25-35) Mean Corpuscular Hemoglobin Concent 34 g/dL (31-37) Red Cell Distribution Width 17.6 % (11.5-14.5) Platelet Count 147 x10^3/uL (140-400) Neutrophils (%) (Auto) 74 % (31-73) Lymphocytes (%) (Auto) 19 % (24-48) Monocytes (%) (Auto) 7 % (0-9) Eosinophils (%) (Auto) 1 % (0-3) Basophils (%) (Auto) 0 % (0-3) Neutrophils # (Auto) 5.9 x10^3uL (1.8-7.7) Lymphocytes # (Auto) 1.5 x10^3/uL (1.0-4.8) Monocytes # (Auto) 0.5 x10^3/uL (0.0-1.1) Eosinophils # (Auto) 0.1 x10^3/uL (0.0-0.7) Basophils # (Auto) 0.0 x10^3/uL (0.0-0.2) Sodium Level 150 mmol/L (136-145) Potassium Level 3.5 mmol/L (3.5-5.1) Chloride Level 119 mmol/L (98-107) Carbon Dioxide Level 20 mmol/L (21-32) Anion Gap 11 (6-14) Blood Urea Nitrogen 31 mg/dL (7-20) Creatinine 0.7 mg/dL (0.6-1.0) Estimated GFR (Cockcroft-Gault) 95.6 Glucose Level 66 mg/dL (70-99) Calcium Level 7.4 mg/dL (8.5-10.1) Micro URINE CULTURE RES 1 Final Mixed urogenital jodi 10,000-25,000 colony forming units per mL BLOOD CULTURE Preliminary NO GROWTH AFTER 4 DAYS Objective Assessment Complicated UTI - POA 03/26. UC no growth Leukocytosis - better Acute Encephalopathy - ? related to Hypernatremia JOCELYNE - better - CT reviewed. U/S neg for hydro Hypernatremia H/o seizures H/o MRSA. screen positive Dementia Plan Plan of Care Cont Zosyn for now F/u labs and cults Supportive care TRISTON JACKSON APRN Mar 31, 2017 13:58
[2017-03-31 15:17] VITALS: BP 152/76
[2017-03-31 19:00] VITALS: BP 93/66
[2017-03-31] MEDS: LATANOPROST 0.005% OPHTH SOLUTION 2.5ML BOTTLE. OU SCH (21:26)
[2017-03-31 23:00] VITALS: BP 98/57
[2017-04-01] MEDS: AMINO AC 3%/ELECTROLYTE/GLYCER 1,000 ML IV SCH ×3 (01:41→15:41)
[2017-04-01 03:00] VITALS: BP 125/73
[2017-04-01] MEDS: PIPERACILLIN/TAZO IV Push 2.25 GM VIAL. IVP SCH ×4 (05:12→23:32)
[2017-04-01] MEDS: NORMAL SALINE IV SCH ×4 (05:13→23:32)
[2017-04-01] MEDS: VALPROIC ACID IV SCH ×4 (05:13→23:32)
[2017-04-01] MEDS: POTASSIUM CHLORIDE 40 MEQ in IV DEXTROSE 5% 1,000 ML IV SCH (05:28)
[2017-04-01 07:00] VITALS: BP 154/89
[2017-04-01] MEDS: ALBUTEROL SULFATE 2.5 MG/3 ML NEBU. NEB SCH ×2 (08:01→21:05)
[2017-04-01] MEDS: FAMOTIDINE 20 MG/2 ML VIAL IVP SCH (08:47)
[2017-04-01 10:41] VITALS: BP 145/82
[2017-04-01 10:47] LABS: CALCIUM 7.5 mg/dL (8.5-10.1); CREATININE 0.7 mg/dL (0.6-1.0); GFR 95.6; POTASSIUM 3.9 mmol/L (3.5-5.1)
--- NOTE | 2017-04-01 14:09 | PDOC ---
SUBJECTIVE ROS ^Na and elyte ABN remains min verbal OBJECTIVE Vital Signs Vital Signs Date Time Temp Pulse Resp B/P (MAP) Pulse Ox O2 Delivery O2 Flow Rate FiO2 04/01/17 10:41 97.7 90 18 145/82 (103) 92 Room Air 97.7 04/01/17 09:04 2.0 I & 0 Intake and Output 04/01/17 07:00 Intake Total 6388 ml Output Total 3001 ml Balance 3387 ml Intake Oral 0 ml IV Total 6388 ml Output Urine Total 3000 ml Stool Total 1 ml # Voids 2 # Bowel Movements 3 PHYSICAL EXAM Physical Exam GEN: barely Awake, Oriented x 0, In no distress EYES: Vision Unchanged, Conjunctiva Normal EN: No EN Drainage, Mucous Membranes dryish NECK: no JVD, no JVP, Supple, no Thyromegaly CVS: S1S2, no Murmur, No Gallop, No Rub,no Edema RESP: no Rales, no Rhonchi,no Acc. Muscle Use GI: BS + ve, NO Bruit, Non Tender, Non Distended : no CVA tenderness, no Suprapubic Tenderness DIAGNOSIS/ASSESSMENT Assessment & Plan UTI with SEPSIS: CONT ANTIBIOTICS per ID DEHYDRATION - in the setting of ABOVE - better with IVF as ordered HYPERNATREMIA - corrected now with Hypotonic IVF as ordered LOWish K - currently repalced with IVF Worsening NAG Met Acidosis - change IVF to LR for now COMMENT/RELEVANT DATA Meds Current Medications Medications (Trade) Dose Ordered Sig/Aidee Start Time Stop Time Status Last Admin Dose Admin Acetaminophen (Acetaminophen Supp) 650 mg PRN Q6HRS PRN 03/28/17 13:30 Acetaminophen (Tylenol) 650 mg PRN Q6HRS PRN 03/28/17 09:15 03/28/17 13:19 DC Acetaminophen/ Hydrocodone Bitart (Lortab 5/325) 1 tab QID 03/27/17 21:00 03/28/17 12:40 DC Albuterol Sulfate (Ventolin Neb Soln) 2.5 mg BID 03/27/17 21:00 04/01/17 08:01 2.5 MG Amino Acids/ Glycerin/ Electrolytes 1,000 ml @ 75 mls/hr [id number] 04/01/17 15:30 Ceftriaxone Sodium 50 ml @ 100 mls/hr 1X ONCE 03/26/17 21:15 03/26/17 21:44 DC 03/26/17 22:01 100 MLS/HR Citalopram Hydrobromide (CeleXA) 10 mg DAILY 03/28/17 09:00 03/28/17 12:40 DC Famotidine (Pepcid Vial) 20 mg DAILY 03/27/17 10:30 04/01/17 08:47 20 MG Heparin Sodium/ Sodium Chloride 80 unit 1X ONCE 03/29/17 13:45 03/29/17 13:46 DC Info (Do NOT chart on this entry -- for MONITORING) 1 each PRN DAILY PRN 03/29/17 15:15 03/31/17 15:14 DC Iohexol (Omnipaque 300 Mg/ml) 6 ml 1X ONCE 03/29/17 15:00 03/29/17 15:02 DC 03/29/17 15:04 6 ML Lactobacillus Rhamnosus (Culturelle) 1 cap BID 03/27/17 21:00 03/28/17 12:40 DC Latanoprost (Xalatan) 1 drop QHS 03/27/17 21:00 03/31/17 21:26 1 DROP Levetiracetam 250 mg/Sodium Chloride 102.5 ml @ 420 mls/hr Q12HR 03/27/17 10:30 04/01/17 08:47 420 MLS/HR Lidocaine/Sodium Bicarbonate (Buffered Lidocaine 1%) 20 ml STK-MED ONCE 03/29/17 13:39 03/29/17 13:40 DC Loperamide HCl (Imodium) 2 mg PRN DAILY PRN 03/27/17 20:30 Mirtazapine (Remeron) 15 mg QHS 03/27/17 21:00 03/28/17 12:40 DC Multivitamins (Thera M Plus) 1 tab DAILY 03/28/17 09:00 03/28/17 12:41 DC Non-Formulary Medication 500 mg TID 03/27/17 21:00 03/27/17 21:00 DC Ondansetron HCl (Zofran Odt) 4 mg QIDPRN PRN 03/27/17 20:00 03/28/17 09:10 DC Ondansetron HCl (Zofran) 4 mg PRN Q8HRS PRN 03/27/17 09:15 Piperacillin Sod/ Tazobactam Sod (Zosyn) 2.25 gm Q6HRS 03/27/17 12:00 04/01/17 12:12 2.25 GM Piperacillin Sod/ Tazobactam Sod 2.25 gm/Dextrose 50 ml @ 100 mls/hr Q6HRS 03/27/17 12:00 UNV Pneumococcal Polyvalent Vaccine (Do NOT chart on this placeholder) 1 each PRN DAILY PRN 03/27/17 02:30 Cancel Polyethylene Glycol (miraLAX PACKET) 17 gm DAILY 03/28/17 09:00 03/28/17 12:40 DC Potassium Chloride 40 meq/ Dextrose 1,020 ml @ 60 mls/hr Q17H 03/29/17 09:00 04/01/17 05:28 60 MLS/HR Potassium Chloride 40 meq/ Sodium Chloride 1,020 ml @ 100 mls/hr [id number] 03/27/17 09:15 UNV Potassium Chloride/Sodium Chloride 1,000 ml @ 100 mls/hr Q10H 03/27/17 09:30 03/27/17 12:01 DC 03/27/17 11:35 100 MLS/HR Potassium Chloride (KCl Oral Soln) 40 meq ONCE ONCE 03/27/17 12:45 03/27/17 12:46 DC 03/27/17 13:19 40 MEQ Potassium Chloride (Klor-Con) 10 meq DAILY 03/28/17 09:00 03/28/17 12:41 DC Sodium Chloride 1,000 ml @ 60 mls/hr [id number] 03/27/17 12:00 03/28/17 07:58 DC 03/27/17 12:41 60 MLS/HR Valproic Acid 1000 mg/Sodium Chloride 60 ml @ 55 mls/hr Q6HRS 03/27/17 12:00 04/01/17 12:19 55 MLS/HR Vitamin D (Vitamin D3) 1,000 unit DAILY 03/28/17 09:00 03/28/17 12:40 DC Lab Laboratory Tests Test 04/01/17 10:10 Sodium Level 140 mmol/L (136-145) Potassium Level 3.9 mmol/L (3.5-5.1) Chloride Level 112 mmol/L (98-107) Carbon Dioxide Level 15 mmol/L (21-32) Anion Gap 13 (6-14) Blood Urea Nitrogen 22 mg/dL (7-20) Creatinine 0.7 mg/dL (0.6-1.0) Estimated GFR (Cockcroft-Gault) 95.6 Glucose Level 84 mg/dL (70-99) Calcium Level 7.5 mg/dL (8.5-10.1) JULIO CALDERON MD Apr 01, 2017 14:09
--- NOTE | 2017-04-01 14:47 | PDOC ---
Infectious Disease Note Subjective Subjective Nonverbal PPN No fever ROS ROS GEN: Denies fevers, chills, sweats HEENT: Denies blurred vision, sore throat CV: Denies chest pain RESP: Denies shortness of air, cough GI: Denies n/v/d NEURO: Denies confusion, dizziness MSK: Denies weakness, joint pain/swelling Vital Sign Vital Signs Vital Signs Date Time Temp Pulse Resp B/P (MAP) Pulse Ox O2 Delivery O2 Flow Rate FiO2 04/01/17 10:41 97.7 90 18 145/82 (103) 92 Room Air 97.7 04/01/17 09:04 2.0 Physical Exam PHYSICAL EXAM GENERAL: Resting quietly LUNGS: Clear HEART: S1S2 ABD: Soft : Massey EXT: No edema, no cyanosis SKIN: No rash RUE-PICC. clean Labs Lab Laboratory Tests Test 04/01/17 10:10 Sodium Level 140 mmol/L (136-145) Potassium Level 3.9 mmol/L (3.5-5.1) Chloride Level 112 mmol/L (98-107) Carbon Dioxide Level 15 mmol/L (21-32) Anion Gap 13 (6-14) Blood Urea Nitrogen 22 mg/dL (7-20) Creatinine 0.7 mg/dL (0.6-1.0) Estimated GFR (Cockcroft-Gault) 95.6 Glucose Level 84 mg/dL (70-99) Calcium Level 7.5 mg/dL (8.5-10.1) Micro URINE CULTURE RES 1 Final Mixed urogenital jodi 10,000-25,000 colony forming units per mL BLOOD CULTURE Preliminary NO GROWTH AFTER 5 DAYS Objective Assessment Complicated UTI - POA 03/26. UC no growth Leukocytosis - better Acute Encephalopathy - ? related to Hypernatremia JOCELYNE - better - CT reviewed. U/S neg for hydro Hypernatremia, improving H/o seizures H/o MRSA. screen positive Dementia Plan Plan of Care Cont Zosyn (started 14), wean soon F/u labs Supportive care PT SEEN ,EXAMINED ,D/W SAMPLE PULLER CONTINUE SAME TRISTON JACKSON APRN Apr 01, 2017 14:47 CATHY CALDERON MD Apr 01, 2017 18:37
[2017-04-01 15:00] VITALS: BP 142/78
[2017-04-01] MEDS: IV RINGERS,LACTATED 1000ML 1,000 ML IV SCH (15:41)
--- NOTE | 2017-04-01 17:41 | PDOC ---
PROGRESS NOTES Subjective Subjective non verbal Objective Objective Vital Signs Date Time Temp Pulse Resp B/P (MAP) Pulse Ox O2 Delivery O2 Flow Rate FiO2 04/01/17 15:00 97.7 90 18 142/78 (99) 92 Room Air 97.7 04/01/17 09:04 2.0 Intake and Output 04/01/17 07:00 Intake Total 6388 ml Output Total 3001 ml Balance 3387 ml Intake Oral 0 ml IV Total 6388 ml Output Urine Total 3000 ml Stool Total 1 ml # Voids 2 # Bowel Movements 3 Physical Exam Abdomen: Normal bowel sounds, Soft, No tenderness Heart: Regular rate, Normal S1, Normal S2 Extremities: No clubbing, Other (DIFFUSE MUSCLE ATROPHY) General: Alert, Cooperative, No acute distress HEENT: Atraumatic, EOMI, Other (DRY MUCOSA) MUSCULOSKELETAL: No joint tenderness, No swelling, No muscular tenderness noted , Osteoarthritic changes both hands Neuro: Other (UNABLE TO COOPERATE) Psych/Mental Status: Other (CONFUSED BUT NO ASYMMETRY) Skin: No rashes, No significant lesion COMMENT keys present Diagnosis Problem List Problems Medical Problems: (1) Altered mental status Status: Acute (2) Hypernatremia Status: Acute (3) Hypokalemia Status: Acute (4) Sepsis Status: Acute (5) UTI (urinary tract infection) Status: Acute Assessment Assessment .Assessment: Hypernatremia 1. UTI complicated/sepsis with h/o chronic keys for urine retention 2. acute metabolic encephalopathy with underlying Alzheimer dementia 3. ARF JOCELYNE VMN dehydration with underlying CKD II 4. acute hypernatremia 5. acute hypokalemia 6. HTN 7. Alzheimer dementia 8. urine retention with chronic indwelling keys 9. COPD 10. chronic moderate malnutrition 11. seizure disorder 12. GERD 13. Peripheral neuropathy 14. PVD 15. CKD II 16. OA generalized 17. anemia chronic disease 18. depression 19. hyperlipidemia 20. chronic constipation PLAN:Labs are improving ,NA 140 now NA 140 down from 160. continue ProcalAmine and D5W UTI sepsis - zosyn continnues - Renal sono 03/29 no hydronephrosis -WBC 6.2 ARF - BUN/Cr 37/0.7 resolved hypokalemia - resolved K 3.5 - [id number] 60cc/hr hypernatremia - Na 150 -slowly improving PPN 60cc/hr D5 40K 60cc/hr Anemia - Hgb 9.9 -monitor malnutrition - PPN 60cc/hr diarrhea - small amount liquid dark green stool continue current plan of care urine c/s -neg Problems: Plan Plan of Care Problems Medical Problems: (1) Altered mental status Status: Acute (2) Hypernatremia Status: Acute (3) Hypokalemia Status: Acute (4) Sepsis Status: Acute (5) UTI (urinary tract infection) Status: Acute Comment Review of Relevant I have reviewed the following items efrain (where applicable) has been applied. Labs Laboratory Tests Test 04/01/17 10:10 Sodium Level 140 mmol/L (136-145) Potassium Level 3.9 mmol/L (3.5-5.1) Chloride Level 112 mmol/L (98-107) Carbon Dioxide Level 15 mmol/L (21-32) Anion Gap 13 (6-14) Blood Urea Nitrogen 22 mg/dL (7-20) Creatinine 0.7 mg/dL (0.6-1.0) Estimated GFR (Cockcroft-Gault) 95.6 Glucose Level 84 mg/dL (70-99) Calcium Level 7.5 mg/dL (8.5-10.1) Microbiology 03/26/17 Blood Culture - Final, Complete NO GROWTH AFTER 5 DAYS 03/26/17 Urine Culture - Final, Complete 03/26/17 Urine Culture Result 1 ([facility]) - Final, Complete Medications Current Medications Amino Acids/ Glycerin/ Electrolytes 1,000 ml @ 75 mls/hr [id number] IV Last administered on 04/01/17 15:41; Start 04/01/17 at 15:30 Ringer's Solution 1,000 ml @ 75 mls/hr [id number] IV Last administered on t 15:41; Start 04/01/17 at 14:15 Vitals/I & O Vital Sign - Last 24 Hours 03/31/17 03/31/17 03/31/17 04/01/17 19:00 20:57 23:00 03:00 Temp 96.8 97.1 97.3 96.8 97.1 97.3 Pulse 78 62 67 Resp 15 15 16 B/P (MAP) 93/66 (75) 98/57 (71) 125/73 (90) Pulse Ox 91 96 92 92 O2 Delivery Room Air Room Air Room Air Room Air 04/01/17 04/01/17 04/01/17 04/01/17 07:00 08:00 08:02 09:04 Temp 97.7 97.7 Pulse 95 Resp 18 B/P (MAP) 154/89 (110) Pulse Ox 90 100 O2 Delivery Room Air Room Air Room Air Room Air O2 Flow Rate 2.0 2.0 04/01/17 04/01/17 10:41 15:00 Temp 97.7 97.7 97.7 97.7 Pulse 90 90 Resp 18 18 B/P (MAP) 145/82 (103) 142/78 (99) Pulse Ox 92 92 O2 Delivery Room Air Room Air Intake and Output 03/31/17 03/31/17 04/01/17 15:00 23:00 07:00 Intake Total 6388 ml Output Total 1401 ml 1600 ml Balance 4987 ml -1600 ml Nutrition Consultation Dietary Evaluation: Recommendations by RD: PPN/TPN Comments: continue ppn for short term nutrition at this time/ adv diet as tolerated REC mvi, vit c per wound protocal consider TF for nutrition needs Expected Outcomes/Goals: to meet > 75% est nutr needs- protein needs met via ppn, goal ongoing Malnutrition Findings: Body Fat Depletion (Non Severe: Mild Depletion Weight Status: Underweight TWAN JAMA MD Apr 01, 2017 17:41
[2017-04-01 19:00] VITALS: BP 165/85
[2017-04-01] MEDS: LATANOPROST 0.005% OPHTH SOLUTION 2.5ML BOTTLE. OU SCH (21:16)
[2017-04-01 23:00] VITALS: BP 134/78
[2017-04-02 03:00] VITALS: BP 120/56
[2017-04-02] MEDS: AMINO AC 3%/ELECTROLYTE/GLYCER 1,000 ML IV SCH ×2 (04:12→16:49)
[2017-04-02] MEDS: IV RINGERS,LACTATED 1000ML 1,000 ML IV SCH ×2 (04:12→16:49)
[2017-04-02 04:39] LABS: BASO % 0 % (0-3); EOS % 1 % (0-3); HEMATOCRIT 30.5 % (36.0-47.0); HEMOGLOBIN 10.1 g/dL (12.0-15.5); LYMPH # 1.8 x10^3/uL (1.0-4.8); LYMPH % 16 % (24-48); MEAN CORPUSCULAR HEMOGLOBIN 30 pg (25-35); MEAN CORPUSCULAR HGB CONC 33 g/dL (31-37); MEAN CORPUSCULAR VOLUME 91 fL (79-100); MONO % 6 % (0-9); NEUT % 78 % (31-73); PLATELET COUNT 161 x10^3/uL (140-400); RED BLOOD COUNT 3.33 x10^6/uL (3.50-5.40); RED CELL DISTRIBUTION WIDTH 17.2 % (11.5-14.5); WHITE BLOOD COUNT 11.6 x10^3/uL (4.0-11.0)
[2017-04-02 05:17] LABS: CALCIUM 7.8 mg/dL (8.5-10.1); CREATININE 0.5 mg/dL (0.6-1.0); GFR 140.9; POTASSIUM 3.6 mmol/L (3.5-5.1)
[2017-04-02] MEDS: PIPERACILLIN/TAZO IV Push 2.25 GM VIAL. IVP SCH (05:32)
[2017-04-02] MEDS: VALPROIC ACID IV SCH ×3 (05:32→16:50)
[2017-04-02] MEDS: NORMAL SALINE IV SCH ×3 (05:32→16:50)
[2017-04-02 07:00] VITALS: BP 150/83
[2017-04-02] MEDS: ALBUTEROL SULFATE 2.5 MG/3 ML NEBU. NEB SCH ×2 (08:04→18:13)
[2017-04-02] MEDS: FAMOTIDINE 20 MG/2 ML VIAL IVP SCH (08:17)
--- NOTE | 2017-04-02 10:51 | PDOC ---
IM PROGRESS NOTES- Subjective Subjective non responsive Objective Objective non responsive Vitals Vital Signs Date Time Temp Pulse Resp B/P (MAP) Pulse Ox O2 Delivery O2 Flow Rate FiO2 04/02/17 08:04 100 Room Air 04/02/17 08:00 2.0 04/02/17 07:00 97.9 95 16 150/83 (105) 97.9 Input & Output Intake and Output 04/02/17 07:00 Intake Total 3982 ml Output Total 2700 ml Balance 1282 ml Intake Oral 300 ml IV Total 2222 ml Blood Product IV Normal Saline Flush 1460 ml Output Urine Total 2700 ml # Bowel Movements 2 Physical Exam Physical Exam General appearance - non responsive, ill appearing, and groans with assessment Mental Status - non responsive, will arouse to name Head - normal Chest - clear to auscultation, no wheezes, rales or rhonchi, symmetric air entry Heart - S1 and S2 normal Abdomen - soft, nontender, nondistended, BS+ Gu- keys iza urine Neurological - non responsive Musculoskeletal - no muscular tenderness noted Extremities - no pedal edema Skin - warm and dry Labs Laboratory Tests Test 04/01/17 10:10 04/02/17 04:36 Sodium Level 140 mmol/L (136-145) 143 mmol/L (136-145) Potassium Level 3.9 mmol/L (3.5-5.1) 3.6 mmol/L (3.5-5.1) Chloride Level 112 mmol/L (98-107) 112 mmol/L (98-107) Carbon Dioxide Level 15 mmol/L (21-32) 20 mmol/L (21-32) Anion Gap 13 (6-14) 11 (6-14) Blood Urea Nitrogen 22 mg/dL (7-20) 24 mg/dL (7-20) Creatinine 0.7 mg/dL (0.6-1.0) 0.5 mg/dL (0.6-1.0) Estimated GFR (Cockcroft-Gault) 95.6 140.9 Glucose Level 84 mg/dL (70-99) 58 mg/dL (70-99) Calcium Level 7.5 mg/dL (8.5-10.1) 7.8 mg/dL (8.5-10.1) White Blood Count 11.6 x10^3/uL (4.0-11.0) Red Blood Count 3.33 x10^6/uL (3.50-5.40) Hemoglobin 10.1 g/dL (12.0-15.5) Hematocrit 30.5 % (36.0-47.0) Mean Corpuscular Volume 91 fL (79-100) Mean Corpuscular Hemoglobin 30 pg (25-35) Mean Corpuscular Hemoglobin Concent 33 g/dL (31-37) Red Cell Distribution Width 17.2 % (11.5-14.5) Platelet Count 161 x10^3/uL (140-400) Neutrophils (%) (Auto) 78 % (31-73) Lymphocytes (%) (Auto) 16 % (24-48) Monocytes (%) (Auto) 6 % (0-9) Eosinophils (%) (Auto) 1 % (0-3) Basophils (%) (Auto) 0 % (0-3) Neutrophils # (Auto) 9.1 x10^3uL (1.8-7.7) Lymphocytes # (Auto) 1.8 x10^3/uL (1.0-4.8) Monocytes # (Auto) 0.6 x10^3/uL (0.0-1.1) Eosinophils # (Auto) 0.1 x10^3/uL (0.0-0.7) Basophils # (Auto) 0.0 x10^3/uL (0.0-0.2) Laboratory Tests Test 04/02/17 04:36 White Blood Count 11.6 x10^3/uL (4.0-11.0) Red Blood Count 3.33 x10^6/uL (3.50-5.40) Hemoglobin 10.1 g/dL (12.0-15.5) Hematocrit 30.5 % (36.0-47.0) Mean Corpuscular Volume 91 fL (79-100) Mean Corpuscular Hemoglobin 30 pg (25-35) Mean Corpuscular Hemoglobin Concent 33 g/dL (31-37) Red Cell Distribution Width 17.2 % (11.5-14.5) Platelet Count 161 x10^3/uL (140-400) Neutrophils (%) (Auto) 78 % (31-73) Lymphocytes (%) (Auto) 16 % (24-48) Monocytes (%) (Auto) 6 % (0-9) Eosinophils (%) (Auto) 1 % (0-3) Basophils (%) (Auto) 0 % (0-3) Neutrophils # (Auto) 9.1 x10^3uL (1.8-7.7) Lymphocytes # (Auto) 1.8 x10^3/uL (1.0-4.8) Monocytes # (Auto) 0.6 x10^3/uL (0.0-1.1) Eosinophils # (Auto) 0.1 x10^3/uL (0.0-0.7) Basophils # (Auto) 0.0 x10^3/uL (0.0-0.2) Sodium Level 143 mmol/L (136-145) Potassium Level 3.6 mmol/L (3.5-5.1) Chloride Level 112 mmol/L (98-107) Carbon Dioxide Level 20 mmol/L (21-32) Anion Gap 11 (6-14) Blood Urea Nitrogen 24 mg/dL (7-20) Creatinine 0.5 mg/dL (0.6-1.0) Estimated GFR (Cockcroft-Gault) 140.9 Glucose Level 58 mg/dL (70-99) Calcium Level 7.8 mg/dL (8.5-10.1) Meds Current Medications Amino Acids/ Glycerin/ Electrolytes 1,000 ml @ 75 mls/hr [id number] IV Last administered on 04/02/17 04:12; Start 04/01/17 at 15:30 Ringer's Solution 1,000 ml @ 75 mls/hr [id number] IV Last administered on 04:12; Start 04/01/17 at 14:15 Assessment Assessment .Assessment: Hypernatremia 1. UTI complicated/sepsis with h/o chronic keys for urine retention 2. acute metabolic encephalopathy with underlying Alzheimer dementia 3. ARF JOCELYNE [facility]N dehydration with underlying CKD II 4. acute hypernatremia 5. acute hypokalemia 6. HTN 7. Alzheimer dementia 8. urine retention with chronic indwelling keys 9. COPD 10. chronic moderate malnutrition 11. seizure disorder 12. GERD 13. Peripheral neuropathy 14. PVD 15. CKD II 16. OA generalized 17. anemia chronic disease 18. depression 19. hyperlipidemia 20. chronic constipation PLAN: continue ProcalAmine UTI sepsis - zosyn continnues - Renal sono 03/29 no hydronephrosis -WBC 6.2 ARF - BUN/Cr 37/0.7 resolved hypokalemia - better hypernatremia -Na 143- resolved. Anemia - Hgb 9.9 -monitor malnutrition - PPN 60cc/hr diarrhea - small amount liquid dark green stool continue current plan of care urine c/s -neg Prognosis is very poor. Plan Plan For more details regarding further plans, please refer to the orders. Nutrition Consultation Dietary Evaluation: Recommendations by RD: PPN/TPN Comments: extended days on ppn/ clears - adv diet as tolerated REC mvi, vit c per wound protocal consider TF for nutrition needs Expected Outcomes/Goals: to meet > 75% est nutr needs- protein needs met via ppn, goal ongoing Malnutrition Findings: Body Fat Depletion (Non Severe: Mild Depletion Weight Status: Underweight SARY RAMESH MD Apr 02, 2017 10:51
[2017-04-02 11:04] VITALS: BP 124/85
--- NOTE | 2017-04-02 11:10 | PDOC ---
SUBJECTIVE ROS ^Na Doing same OBJECTIVE Vital Signs Vital Signs Date Time Temp Pulse Resp B/P (MAP) Pulse Ox O2 Delivery O2 Flow Rate FiO2 04/02/17 11:04 97.5 86 18 124/85 (98) 97 Room Air 97.5 04/02/17 08:00 2.0 I & 0 Intake and Output 04/02/17 07:00 Intake Total 3982 ml Output Total 2700 ml Balance 1282 ml Intake Oral 300 ml IV Total 2222 ml Blood Product IV Normal Saline Flush 1460 ml Output Urine Total 2700 ml # Bowel Movements 2 PHYSICAL EXAM Physical Exam General Appearance: Barely Awake: Alert Oriented x 0 Neck: No JVD or JVP Chest: CTA Tim Heart: S1 S2 Abdomen - Soft NTND Extremities - No Edema DIAGNOSIS/ASSESSMENT Assessment & Plan NAG Met Acidosis - better with change IVF to LR for now; ^Na - better now Will sign off, pl call with Qs. Problems: COMMENT/RELEVANT DATA Meds Current Medications Medications (Trade) Dose Ordered Sig/Aidee Start Time Stop Time Status Last Admin Dose Admin Acetaminophen (Acetaminophen Supp) 650 mg PRN Q6HRS PRN 03/28/17 13:30 Acetaminophen (Tylenol) 650 mg PRN Q6HRS PRN 03/28/17 09:15 03/28/17 13:19 DC Acetaminophen/ Hydrocodone Bitart (Lortab 5/325) 1 tab QID 03/27/17 21:00 03/28/17 12:40 DC Albuterol Sulfate (Ventolin Neb Soln) 2.5 mg BID 03/27/17 21:00 04/02/17 08:04 2.5 MG Amino Acids/ Glycerin/ Electrolytes 1,000 ml @ 75 mls/hr [id number] 04/01/17 15:30 04/02/17 04:12 75 MLS/HR Ceftriaxone Sodium 50 ml @ 100 mls/hr 1X ONCE 03/26/17 21:15 03/26/17 21:44 DC 03/26/17 22:01 100 MLS/HR Citalopram Hydrobromide (CeleXA) 10 mg DAILY 03/28/17 09:00 03/28/17 12:40 DC Famotidine (Pepcid Vial) 20 mg DAILY 03/27/17 10:30 04/02/17 08:17 20 MG Heparin Sodium/ Sodium Chloride 80 unit 1X ONCE 03/29/17 13:45 03/29/17 13:46 DC Info (Do NOT chart on this entry -- for MONITORING) 1 each PRN DAILY PRN 03/29/17 15:15 03/31/17 15:14 DC Iohexol (Omnipaque 300 Mg/ml) 6 ml 1X ONCE 03/29/17 15:00 03/29/17 15:02 DC 03/29/17 15:04 6 ML Lactobacillus Rhamnosus (Culturelle) 1 cap BID 03/27/17 21:00 03/28/17 12:40 DC Latanoprost (Xalatan) 1 drop QHS 03/27/17 21:00 04/01/17 21:16 1 DROP Levetiracetam 250 mg/Sodium Chloride 102.5 ml @ 420 mls/hr Q12HR 03/27/17 10:30 04/02/17 08:16 420 MLS/HR Lidocaine/Sodium Bicarbonate (Buffered Lidocaine 1%) 20 ml STK-MED ONCE 03/29/17 13:39 03/29/17 13:40 DC Loperamide HCl (Imodium) 2 mg PRN DAILY PRN 03/27/17 20:30 Mirtazapine (Remeron) 15 mg QHS 03/27/17 21:00 03/28/17 12:40 DC Multivitamins (Thera M Plus) 1 tab DAILY 03/28/17 09:00 03/28/17 12:41 DC Non-Formulary Medication 500 mg TID 03/27/17 21:00 03/27/17 21:00 DC Ondansetron HCl (Zofran Odt) 4 mg QIDPRN PRN 03/27/17 20:00 03/28/17 09:10 DC Ondansetron HCl (Zofran) 4 mg PRN Q8HRS PRN 03/27/17 09:15 Piperacillin Sod/ Tazobactam Sod (Zosyn) 2.25 gm Q6HRS 03/27/17 12:00 04/02/17 05:32 2.25 GM Piperacillin Sod/ Tazobactam Sod 2.25 gm/Dextrose 50 ml @ 100 mls/hr Q6HRS 03/27/17 12:00 UNV Pneumococcal Polyvalent Vaccine (Do NOT chart on this placeholder) 1 each PRN DAILY PRN 03/27/17 02:30 Cancel Polyethylene Glycol (miraLAX PACKET) 17 gm DAILY 03/28/17 09:00 03/28/17 12:40 DC Potassium Chloride 40 meq/ Dextrose 1,020 ml @ 60 mls/hr Q17H 03/29/17 09:00 04/01/17 14:07 DC 04/01/17 05:28 60 MLS/HR Potassium Chloride 40 meq/ Sodium Chloride 1,020 ml @ 100 mls/hr [id number] 03/27/17 09:15 UNV Potassium Chloride/Sodium Chloride 1,000 ml @ 100 mls/hr Q10H 03/27/17 09:30 03/27/17 12:01 DC 03/27/17 11:35 100 MLS/HR Potassium Chloride (KCl Oral Soln) 40 meq ONCE ONCE 03/27/17 12:45 03/27/17 12:46 DC 03/27/17 13:19 40 MEQ Potassium Chloride (Klor-Con) 10 meq DAILY 03/28/17 09:00 03/28/17 12:41 DC Ringer's Solution 1,000 ml @ 75 mls/hr [id number] 04/01/17 14:15 04/02/17 04:12 75 MLS/HR Sodium Chloride 1,000 ml @ 60 mls/hr [id number] 03/27/17 12:00 03/28/17 07:58 DC 03/27/17 12:41 60 MLS/HR Valproic Acid 1000 mg/Sodium Chloride 60 ml @ 55 mls/hr Q6HRS 03/27/17 12:00 04/02/17 05:32 55 MLS/HR Vitamin D (Vitamin D3) 1,000 unit DAILY 03/28/17 09:00 03/28/17 12:40 DC Lab Laboratory Tests Test 04/02/17 04:36 White Blood Count 11.6 x10^3/uL (4.0-11.0) Red Blood Count 3.33 x10^6/uL (3.50-5.40) Hemoglobin 10.1 g/dL (12.0-15.5) Hematocrit 30.5 % (36.0-47.0) Mean Corpuscular Volume 91 fL (79-100) Mean Corpuscular Hemoglobin 30 pg (25-35) Mean Corpuscular Hemoglobin Concent 33 g/dL (31-37) Red Cell Distribution Width 17.2 % (11.5-14.5) Platelet Count 161 x10^3/uL (140-400) Neutrophils (%) (Auto) 78 % (31-73) Lymphocytes (%) (Auto) 16 % (24-48) Monocytes (%) (Auto) 6 % (0-9) Eosinophils (%) (Auto) 1 % (0-3) Basophils (%) (Auto) 0 % (0-3) Neutrophils # (Auto) 9.1 x10^3uL (1.8-7.7) Lymphocytes # (Auto) 1.8 x10^3/uL (1.0-4.8) Monocytes # (Auto) 0.6 x10^3/uL (0.0-1.1) Eosinophils # (Auto) 0.1 x10^3/uL (0.0-0.7) Basophils # (Auto) 0.0 x10^3/uL (0.0-0.2) Sodium Level 143 mmol/L (136-145) Potassium Level 3.6 mmol/L (3.5-5.1) Chloride Level 112 mmol/L (98-107) Carbon Dioxide Level 20 mmol/L (21-32) Anion Gap 11 (6-14) Blood Urea Nitrogen 24 mg/dL (7-20) Creatinine 0.5 mg/dL (0.6-1.0) Estimated GFR (Cockcroft-Gault) 140.9 Glucose Level 58 mg/dL (70-99) Calcium Level 7.8 mg/dL (8.5-10.1) JULIO CALDERON MD Apr 02, 2017 11:10
--- NOTE | 2017-04-02 11:23 | PDOC ---
Infectious Disease Note Subjective Subjective Nonverbal PPN No fever ROS ROS unable to do Vital Sign Vital Signs Vital Signs Date Time Temp Pulse Resp B/P (MAP) Pulse Ox O2 Delivery O2 Flow Rate FiO2 04/02/17 11:04 97.5 86 18 124/85 (98) 97 Room Air 97.5 04/02/17 08:00 2.0 Physical Exam PHYSICAL EXAM GENERAL: NAD, non verbal HEENT: PERRL, OC/OP NECK: Supple, no JVD, no LN LUNGS: Clear HEART: S1S2, no gallop, no murmur ABD: Soft, NT, no organomegaly, no rebound EXT: No edema, no cyanosis BENEFITS SPECIALIST: non verbal SKIN: No rash IV: ok Labs Lab Laboratory Tests Test 04/02/17 04:36 White Blood Count 11.6 x10^3/uL (4.0-11.0) Red Blood Count 3.33 x10^6/uL (3.50-5.40) Hemoglobin 10.1 g/dL (12.0-15.5) Hematocrit 30.5 % (36.0-47.0) Mean Corpuscular Volume 91 fL (79-100) Mean Corpuscular Hemoglobin 30 pg (25-35) Mean Corpuscular Hemoglobin Concent 33 g/dL (31-37) Red Cell Distribution Width 17.2 % (11.5-14.5) Platelet Count 161 x10^3/uL (140-400) Neutrophils (%) (Auto) 78 % (31-73) Lymphocytes (%) (Auto) 16 % (24-48) Monocytes (%) (Auto) 6 % (0-9) Eosinophils (%) (Auto) 1 % (0-3) Basophils (%) (Auto) 0 % (0-3) Neutrophils # (Auto) 9.1 x10^3uL (1.8-7.7) Lymphocytes # (Auto) 1.8 x10^3/uL (1.0-4.8) Monocytes # (Auto) 0.6 x10^3/uL (0.0-1.1) Eosinophils # (Auto) 0.1 x10^3/uL (0.0-0.7) Basophils # (Auto) 0.0 x10^3/uL (0.0-0.2) Sodium Level 143 mmol/L (136-145) Potassium Level 3.6 mmol/L (3.5-5.1) Chloride Level 112 mmol/L (98-107) Carbon Dioxide Level 20 mmol/L (21-32) Anion Gap 11 (6-14) Blood Urea Nitrogen 24 mg/dL (7-20) Creatinine 0.5 mg/dL (0.6-1.0) Estimated GFR (Cockcroft-Gault) 140.9 Glucose Level 58 mg/dL (70-99) Calcium Level 7.8 mg/dL (8.5-10.1) Objective Assessment Complicated UTI - POA 03/26. UC no growth Leukocytosis - better Acute Encephalopathy - ? related to Hypernatremia JOCELYNE - better - CT reviewed. U/S neg for hydro Hypernatremia, improving H/o seizures H/o MRSA. screen positive Dementia Plan Plan of Care Cont Zosyn (started 14), wean soon,, change to po augmentin F/u labs Supportive care JENNIFER CALDERON MD Apr 02, 2017 11:23
[2017-04-02 15:00] VITALS: BP 154/80
[2017-04-02 19:00] VITALS: BP 148/85
[2017-04-02] MEDS: LATANOPROST 0.005% OPHTH SOLUTION 2.5ML BOTTLE. OU SCH (21:00)
[2017-04-02] MEDS ORDERED: AMOXICILLIN/CLAV 400MG/57MG 5 ML ORAL.SUSP. PEG SCH (21:00)
[2017-04-02 23:00] VITALS: BP 153/90
[2017-04-03] MEDS: VALPROIC ACID IV SCH ×4 (00:02→18:15)
[2017-04-03] MEDS: NORMAL SALINE IV SCH ×4 (00:02→18:15)
[2017-04-03 03:00] VITALS: BP 154/85
[2017-04-03 05:17] LABS: BASO % 0 % (0-3); EOS % 0 % (0-3); HEMATOCRIT 30.4 % (36.0-47.0); HEMOGLOBIN 10.1 g/dL (12.0-15.5); LYMPH # 1.8 x10^3/uL (1.0-4.8); LYMPH % 13 % (24-48); MEAN CORPUSCULAR HEMOGLOBIN 31 pg (25-35); MEAN CORPUSCULAR HGB CONC 33 g/dL (31-37); MEAN CORPUSCULAR VOLUME 92 fL (79-100); MONO % 7 % (0-9); NEUT % 80 % (31-73); PLATELET COUNT 197 x10^3/uL (140-400); RED BLOOD COUNT 3.32 x10^6/uL (3.50-5.40); RED CELL DISTRIBUTION WIDTH 16.9 % (11.5-14.5); WHITE BLOOD COUNT 13.4 x10^3/uL (4.0-11.0)
[2017-04-03 05:37] LABS: ALBUMIN 1.3 g/dL (3.4-5.0); ALBUMIN/GLOBULIN RATIO 0.3 (1.0-1.7); CALCIUM 7.7 mg/dL (8.5-10.1); CREATININE 0.5 mg/dL (0.6-1.0); GFR 140.9; POTASSIUM 3.1 mmol/L (3.5-5.1); TOTAL BILIRUBIN 0.2 mg/dL (0.2-1.0); TOTAL PROTEIN 5.5 g/dL (6.4-8.2)
[2017-04-03] MEDS: IV RINGERS,LACTATED 1000ML 1,000 ML IV SCH (06:15)
[2017-04-03] MEDS: AMINO AC 3%/ELECTROLYTE/GLYCER 1,000 ML IV SCH ×2 (06:24→23:00)
[2017-04-03 07:00] VITALS: BP 126/70
[2017-04-03] MEDS: ALBUTEROL SULFATE 2.5 MG/3 ML NEBU. NEB SCH ×2 (07:38→20:23)
[2017-04-03] MEDS: POTASSIUM CHLORIDE 20MEQ 50 ML IV SCH ×2 (09:13→12:45)
[2017-04-03] MEDS: FAMOTIDINE 20 MG/2 ML VIAL IVP SCH (09:20)
--- NOTE | 2017-04-03 09:20 | PDOC ---
IM PROGRESS NOTES- Subjective Subjective non responsive Objective Objective non responsive Vitals Vital Signs Date Time Temp Pulse Resp B/P (MAP) Pulse Ox O2 Delivery O2 Flow Rate FiO2 04/03/17 07:39 Room Air 04/03/17 07:00 98.1 98 16 126/70 (88) 93 98.1 04/02/17 08:00 2.0 Input & Output Intake and Output 04/03/17 07:00 Intake Total 0 ml Output Total 1775 ml Balance -1775 ml Intake Oral 0 ml Output Urine Total 1775 ml Physical Exam Physical Exam General appearance - non responsive, ill appearing, and groans with assessment Mental Status - non responsive, will arouse to name Head - normal Chest - clear to auscultation, no wheezes, rales or rhonchi, symmetric air entry Heart - S1 and S2 normal Abdomen - soft, nontender, nondistended, BS+ Gu- keys iza urine Neurological - non responsive Musculoskeletal - no muscular tenderness noted Extremities - no pedal edema Skin - warm and dry Labs Laboratory Tests Test 04/01/17 10:10 04/02/17 04:36 04/03/17 04:50 Sodium Level 140 mmol/L (136-145) 143 mmol/L (136-145) 141 mmol/L (136-145) Potassium Level 3.9 mmol/L (3.5-5.1) 3.6 mmol/L (3.5-5.1) 3.1 mmol/L (3.5-5.1) Chloride Level 112 mmol/L (98-107) 112 mmol/L (98-107) 109 mmol/L (98-107) Carbon Dioxide Level 15 mmol/L (21-32) 20 mmol/L (21-32) 22 mmol/L (21-32) Anion Gap 13 (6-14) 11 (6-14) 10 (6-14) Blood Urea Nitrogen 22 mg/dL (7-20) 24 mg/dL (7-20) 24 mg/dL (7-20) Creatinine 0.7 mg/dL (0.6-1.0) 0.5 mg/dL (0.6-1.0) 0.5 mg/dL (0.6-1.0) Estimated GFR (Cockcroft-Gault) 95.6 140.9 140.9 Glucose Level 84 mg/dL (70-99) 58 mg/dL (70-99) 48 mg/dL (70-99) Calcium Level 7.5 mg/dL (8.5-10.1) 7.8 mg/dL (8.5-10.1) 7.7 mg/dL (8.5-10.1) White Blood Count 11.6 x10^3/uL (4.0-11.0) 13.4 x10^3/uL (4.0-11.0) Red Blood Count 3.33 x10^6/uL (3.50-5.40) 3.32 x10^6/uL (3.50-5.40) Hemoglobin 10.1 g/dL (12.0-15.5) 10.1 g/dL (12.0-15.5) Hematocrit 30.5 % (36.0-47.0) 30.4 % (36.0-47.0) Mean Corpuscular Volume 91 fL (79-100) 92 fL (79-100) Mean Corpuscular Hemoglobin 30 pg (25-35) 31 pg (25-35) Mean Corpuscular Hemoglobin Concent 33 g/dL (31-37) 33 g/dL (31-37) Red Cell Distribution Width 17.2 % (11.5-14.5) 16.9 % (11.5-14.5) Platelet Count 161 x10^3/uL (140-400) 197 x10^3/uL (140-400) Neutrophils (%) (Auto) 78 % (31-73) 80 % (31-73) Lymphocytes (%) (Auto) 16 % (24-48) 13 % (24-48) Monocytes (%) (Auto) 6 % (0-9) 7 % (0-9) Eosinophils (%) (Auto) 1 % (0-3) 0 % (0-3) Basophils (%) (Auto) 0 % (0-3) 0 % (0-3) Neutrophils # (Auto) 9.1 x10^3uL (1.8-7.7) 10.8 x10^3uL (1.8-7.7) Lymphocytes # (Auto) 1.8 x10^3/uL (1.0-4.8) 1.8 x10^3/uL (1.0-4.8) Monocytes # (Auto) 0.6 x10^3/uL (0.0-1.1) 0.9 x10^3/uL (0.0-1.1) Eosinophils # (Auto) 0.1 x10^3/uL (0.0-0.7) 0.0 x10^3/uL (0.0-0.7) Basophils # (Auto) 0.0 x10^3/uL (0.0-0.2) 0.0 x10^3/uL (0.0-0.2) BUN/Creatinine Ratio 48 (6-20) Total Bilirubin 0.2 mg/dL (0.2-1.0) Aspartate Amino Transf (AST/SGOT) 22 U/L (15-37) Alanine Aminotransferase (ALT/SGPT) 10 U/L (14-59) Alkaline Phosphatase 83 U/L (46-116) Total Protein 5.5 g/dL (6.4-8.2) Albumin 1.3 g/dL (3.4-5.0) Albumin/Globulin Ratio 0.3 (1.0-1.7) Laboratory Tests Test 04/03/17 04:50 White Blood Count 13.4 x10^3/uL (4.0-11.0) Red Blood Count 3.32 x10^6/uL (3.50-5.40) Hemoglobin 10.1 g/dL (12.0-15.5) Hematocrit 30.4 % (36.0-47.0) Mean Corpuscular Volume 92 fL (79-100) Mean Corpuscular Hemoglobin 31 pg (25-35) Mean Corpuscular Hemoglobin Concent 33 g/dL (31-37) Red Cell Distribution Width 16.9 % (11.5-14.5) Platelet Count 197 x10^3/uL (140-400) Neutrophils (%) (Auto) 80 % (31-73) Lymphocytes (%) (Auto) 13 % (24-48) Monocytes (%) (Auto) 7 % (0-9) Eosinophils (%) (Auto) 0 % (0-3) Basophils (%) (Auto) 0 % (0-3) Neutrophils # (Auto) 10.8 x10^3uL (1.8-7.7) Lymphocytes # (Auto) 1.8 x10^3/uL (1.0-4.8) Monocytes # (Auto) 0.9 x10^3/uL (0.0-1.1) Eosinophils # (Auto) 0.0 x10^3/uL (0.0-0.7) Basophils # (Auto) 0.0 x10^3/uL (0.0-0.2) Sodium Level 141 mmol/L (136-145) Potassium Level 3.1 mmol/L (3.5-5.1) Chloride Level 109 mmol/L (98-107) Carbon Dioxide Level 22 mmol/L (21-32) Anion Gap 10 (6-14) Blood Urea Nitrogen 24 mg/dL (7-20) Creatinine 0.5 mg/dL (0.6-1.0) Estimated GFR (Cockcroft-Gault) 140.9 BUN/Creatinine Ratio 48 (6-20) Glucose Level 48 mg/dL (70-99) Calcium Level 7.7 mg/dL (8.5-10.1) Total Bilirubin 0.2 mg/dL (0.2-1.0) Aspartate Amino Transf (AST/SGOT) 22 U/L (15-37) Alanine Aminotransferase (ALT/SGPT) 10 U/L (14-59) Alkaline Phosphatase 83 U/L (46-116) Total Protein 5.5 g/dL (6.4-8.2) Albumin 1.3 g/dL (3.4-5.0) Albumin/Globulin Ratio 0.3 (1.0-1.7) Meds Current Medications Amoxicillin/ Clavulanate Potassium (Augmentin 400-57mg/5ml Susp) 5 ml Q12HR PEG ; Start 04/02/17 at 21:00; Stop 04/02/17 at 21:00; Status DC Potassium Chloride 50 ml @ 50 mls/hr Q1H IV ; Start 04/03/17 at 09:00; Stop at 10:59 Assessment Assessment .Assessment: Hypernatremia 1. UTI complicated/sepsis with h/o chronic keys for urine retention 2. acute metabolic encephalopathy with underlying Alzheimer dementia 3. ARF JOCELYNE VMN dehydration with underlying CKD II 4. acute hypernatremia 5. acute hypokalemia 6. HTN 7. Alzheimer dementia 8. urine retention with chronic indwelling keys 9. COPD 10. chronic moderate malnutrition 11. seizure disorder 12. GERD 13. Peripheral neuropathy 14. PVD 15. CKD II 16. OA generalized 17. anemia chronic disease 18. depression 19. hyperlipidemia 20. chronic constipation PLAN: continue ProcalAmine UTI sepsis - zosyn continnues - Renal sono 03/29 no hydronephrosis -WBC 6.2 ARF - BUN/Cr 37/0.7 resolved hypokalemia - better hypernatremia -Na 143- resolved. Anemia - Hgb 9.9 -monitor malnutrition - PPN 60cc/hr diarrhea - small amount liquid dark green stool continue current plan of care urine c/s -neg Prognosis is very poor. Acute metabolic encephalopathy- not responsive. Consult palliative care. Hypokalemia- replace Kcl. Plan Plan For more details regarding further plans, please refer to the orders. Nutrition Consultation Dietary Evaluation: Recommendations by RD: PPN/TPN Comments: extended days on ppn/ clears - adv diet as tolerated REC mvi, vit c per wound protocal consider TF for nutrition needs Expected Outcomes/Goals: to meet > 75% est nutr needs- protein needs met via ppn, goal ongoing Malnutrition Findings: Body Fat Depletion (Non Severe: Mild Depletion Weight Status: Underweight SARY RAMESH MD Apr 03, 2017 09:20
[2017-04-03 10:54] VITALS: BP 122/76
--- NOTE | 2017-04-03 11:16 | PDOC ---
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: unresponsive SKIN: No rash IV: ok Labs Lab Laboratory Tests Test 04/03/17 04:50 White Blood Count 13.4 x10^3/uL (4.0-11.0) Red Blood Count 3.32 x10^6/uL (3.50-5.40) Hemoglobin 10.1 g/dL (12.0-15.5) Hematocrit 30.4 % (36.0-47.0) Mean Corpuscular Volume 92 fL (79-100) Mean Corpuscular Hemoglobin 31 pg (25-35) Mean Corpuscular Hemoglobin Concent 33 g/dL (31-37) Red Cell Distribution Width 16.9 % (11.5-14.5) Platelet Count 197 x10^3/uL (140-400) Neutrophils (%) (Auto) 80 % (31-73) Lymphocytes (%) (Auto) 13 % (24-48) Monocytes (%) (Auto) 7 % (0-9) Eosinophils (%) (Auto) 0 % (0-3) Basophils (%) (Auto) 0 % (0-3) Neutrophils # (Auto) 10.8 x10^3uL (1.8-7.7) Lymphocytes # (Auto) 1.8 x10^3/uL (1.0-4.8) Monocytes # (Auto) 0.9 x10^3/uL (0.0-1.1) Eosinophils # (Auto) 0.0 x10^3/uL (0.0-0.7) Basophils # (Auto) 0.0 x10^3/uL (0.0-0.2) Sodium Level 141 mmol/L (136-145) Potassium Level 3.1 mmol/L (3.5-5.1) Chloride Level 109 mmol/L (98-107) Carbon Dioxide Level 22 mmol/L (21-32) Anion Gap 10 (6-14) Blood Urea Nitrogen 24 mg/dL (7-20) Creatinine 0.5 mg/dL (0.6-1.0) Estimated GFR (Cockcroft-Gault) 140.9 BUN/Creatinine Ratio 48 (6-20) Glucose Level 48 mg/dL (70-99) Calcium Level 7.7 mg/dL (8.5-10.1) Total Bilirubin 0.2 mg/dL (0.2-1.0) Aspartate Amino Transf (AST/SGOT) 22 U/L (15-37) Alanine Aminotransferase (ALT/SGPT) 10 U/L (14-59) Alkaline Phosphatase 83 U/L (46-116) Total Protein 5.5 g/dL (6.4-8.2) Albumin 1.3 g/dL (3.4-5.0) Albumin/Globulin Ratio 0.3 (1.0-1.7) Objective Assessment Complicated UTI - POA 03/26. UC no growth Leukocytosis - better Acute Encephalopathy - ? related to Hypernatremia JOCELYNE - better - CT reviewed. U/S neg for hydro Hypernatremia, improving H/o seizures H/o MRSA. screen positive Dementia Plan Plan of Care po augmentin F/u labs Supportive care hospice in works JENNIFER CALDERON MD Apr 03, 2017 11:16
[2017-04-03 15:27] VITALS: BP 133/87
[2017-04-03 19:00] VITALS: BP 152/73
[2017-04-03] MEDS: DEXTROSE 50% 25 GM / 50ML DISP.SYRIN. IV PRN (20:16)
[2017-04-03] MEDS: LATANOPROST 0.005% OPHTH SOLUTION 2.5ML BOTTLE. OU SCH (20:42)
[2017-04-03 23:00] VITALS: BP 136/82
[2017-04-04] MEDS: VALPROIC ACID IV SCH ×3 (00:02→12:15)
[2017-04-04] MEDS: NORMAL SALINE IV SCH ×3 (00:02→12:15)
[2017-04-04 03:00] VITALS: BP 134/72
[2017-04-04 04:58] LABS: BASO # 0.1 x10^3/uL (0.0-0.2); BASO % 0 % (0-3); EOS % 0 % (0-3); HEMATOCRIT 30.3 % (36.0-47.0); LYMPH # 2.1 x10^3/uL (1.0-4.8); LYMPH % 15 % (24-48); MEAN CORPUSCULAR HEMOGLOBIN 31 pg (25-35); MEAN CORPUSCULAR HGB CONC 33 g/dL (31-37); MEAN CORPUSCULAR VOLUME 92 fL (79-100); MONO % 7 % (0-9); NEUT % 77 % (31-73); PLATELET COUNT 225 x10^3/uL (140-400); RED CELL DISTRIBUTION WIDTH 16.9 % (11.5-14.5); WHITE BLOOD COUNT 13.9 x10^3/uL (4.0-11.0)
[2017-04-04 05:19] LABS: CALCIUM 7.6 mg/dL (8.5-10.1); CREATININE 0.5 mg/dL (0.6-1.0); GFR 140.9; POTASSIUM 3.7 mmol/L (3.5-5.1)
[2017-04-04] MEDS: DEXTROSE 50% 25 GM / 50ML DISP.SYRIN. IV PRN (05:58)
[2017-04-04 07:00] VITALS: BP 157/94
[2017-04-04] MEDS ORDERED: IV DEXTROSE 10% 1,000 ML IV SCH (07:45)
[2017-04-04] MEDS: ALBUTEROL SULFATE 2.5 MG/3 ML NEBU. NEB SCH (07:47)
[2017-04-04] MEDS: FAMOTIDINE 20 MG/2 ML VIAL IVP SCH (09:30)
--- NOTE | 2017-04-04 10:07 | PDOC ---
IM PROGRESS NOTES- Subjective Subjective non responsive Objective Objective non responsive Vitals Vital Signs Date Time Temp Pulse Resp B/P (MAP) Pulse Ox O2 Delivery O2 Flow Rate FiO2 04/04/17 07:48 98 Room Air 04/04/17 07:00 97.9 104 20 157/94 (115) 97.9 Input & Output Intake and Output 04/04/17 07:00 Output Total 1100 ml Balance -1100 ml Output Urine Total 1100 ml # Voids 1 # Bowel Movements 1 Physical Exam Physical Exam General appearance - non responsive, ill appearing, and groans with assessment Mental Status - non responsive, will arouse to name Head - normal Chest - clear to auscultation, no wheezes, rales or rhonchi, symmetric air entry Heart - S1 and S2 normal Abdomen - soft, nontender, nondistended, BS+ Gu- keys iza urine Neurological - non responsive Musculoskeletal - no muscular tenderness noted Extremities - no pedal edema Skin - warm and dry Labs Laboratory Tests Test 04/03/17 04:50 04/03/17 18:49 04/03/17 20:32 04/04/17 04:43 White Blood Count 13.4 x10^3/uL (4.0-11.0) 13.9 x10^3/uL (4.0-11.0) Red Blood Count 3.32 x10^6/uL (3.50-5.40) 3.30 x10^6/uL (3.50-5.40) Hemoglobin 10.1 g/dL (12.0-15.5) 10.0 g/dL (12.0-15.5) Hematocrit 30.4 % (36.0-47.0) 30.3 % (36.0-47.0) Mean Corpuscular Volume 92 fL (79-100) 92 fL (79-100) Mean Corpuscular Hemoglobin 31 pg (25-35) 31 pg (25-35) Mean Corpuscular Hemoglobin Concent 33 g/dL (31-37) 33 g/dL (31-37) Red Cell Distribution Width 16.9 % (11.5-14.5) 16.9 % (11.5-14.5) Platelet Count 197 x10^3/uL (140-400) 225 x10^3/uL (140-400) Neutrophils (%) (Auto) 80 % (31-73) 77 % (31-73) Lymphocytes (%) (Auto) 13 % (24-48) 15 % (24-48) Monocytes (%) (Auto) 7 % (0-9) 7 % (0-9) Eosinophils (%) (Auto) 0 % (0-3) 0 % (0-3) Basophils (%) (Auto) 0 % (0-3) 0 % (0-3) Neutrophils # (Auto) 10.8 x10^3uL (1.8-7.7) 10.8 x10^3uL (1.8-7.7) Lymphocytes # (Auto) 1.8 x10^3/uL (1.0-4.8) 2.1 x10^3/uL (1.0-4.8) Monocytes # (Auto) 0.9 x10^3/uL (0.0-1.1) 1.0 x10^3/uL (0.0-1.1) Eosinophils # (Auto) 0.0 x10^3/uL (0.0-0.7) 0.0 x10^3/uL (0.0-0.7) Basophils # (Auto) 0.0 x10^3/uL (0.0-0.2) 0.1 x10^3/uL (0.0-0.2) Sodium Level 141 mmol/L (136-145) 137 mmol/L (136-145) Potassium Level 3.1 mmol/L (3.5-5.1) 3.7 mmol/L (3.5-5.1) Chloride Level 109 mmol/L (98-107) 106 mmol/L (98-107) Carbon Dioxide Level 22 mmol/L (21-32) 22 mmol/L (21-32) Anion Gap 10 (6-14) 9 (6-14) Blood Urea Nitrogen 24 mg/dL (7-20) 24 mg/dL (7-20) Creatinine 0.5 mg/dL (0.6-1.0) 0.5 mg/dL (0.6-1.0) Estimated GFR (Cockcroft-Gault) 140.9 140.9 BUN/Creatinine Ratio 48 (6-20) Glucose Level 48 mg/dL (70-99) 57 mg/dL (70-99) Calcium Level 7.7 mg/dL (8.5-10.1) 7.6 mg/dL (8.5-10.1) Total Bilirubin 0.2 mg/dL (0.2-1.0) Aspartate Amino Transf (AST/SGOT) 22 U/L (15-37) Alanine Aminotransferase (ALT/SGPT) 10 U/L (14-59) Alkaline Phosphatase 83 U/L (46-116) Total Protein 5.5 g/dL (6.4-8.2) Albumin 1.3 g/dL (3.4-5.0) Albumin/Globulin Ratio 0.3 (1.0-1.7) Glucose (Fingerstick) 30 mg/dL (70-99) 211 mg/dL (70-99) Test 04/04/17 05:36 04/04/17 07:54 04/04/17 08:57 Glucose (Fingerstick) 45 mg/dL (70-99) 60 mg/dL (70-99) 71 mg/dL (70-99) Laboratory Tests Test 04/03/17 18:49 04/03/17 20:32 04/04/17 04:43 04/04/17 05:36 Glucose (Fingerstick) 30 mg/dL (70-99) 211 mg/dL (70-99) 45 mg/dL (70-99) White Blood Count 13.9 x10^3/uL (4.0-11.0) Red Blood Count 3.30 x10^6/uL (3.50-5.40) Hemoglobin 10.0 g/dL (12.0-15.5) Hematocrit 30.3 % (36.0-47.0) Mean Corpuscular Volume 92 fL (79-100) Mean Corpuscular Hemoglobin 31 pg (25-35) Mean Corpuscular Hemoglobin Concent 33 g/dL (31-37) Red Cell Distribution Width 16.9 % (11.5-14.5) Platelet Count 225 x10^3/uL (140-400) Neutrophils (%) (Auto) 77 % (31-73) Lymphocytes (%) (Auto) 15 % (24-48) Monocytes (%) (Auto) 7 % (0-9) Eosinophils (%) (Auto) 0 % (0-3) Basophils (%) (Auto) 0 % (0-3) Neutrophils # (Auto) 10.8 x10^3uL (1.8-7.7) Lymphocytes # (Auto) 2.1 x10^3/uL (1.0-4.8) Monocytes # (Auto) 1.0 x10^3/uL (0.0-1.1) Eosinophils # (Auto) 0.0 x10^3/uL (0.0-0.7) Basophils # (Auto) 0.1 x10^3/uL (0.0-0.2) Sodium Level 137 mmol/L (136-145) Potassium Level 3.7 mmol/L (3.5-5.1) Chloride Level 106 mmol/L (98-107) Carbon Dioxide Level 22 mmol/L (21-32) Anion Gap 9 (6-14) Blood Urea Nitrogen 24 mg/dL (7-20) Creatinine 0.5 mg/dL (0.6-1.0) Estimated GFR (Cockcroft-Gault) 140.9 Glucose Level 57 mg/dL (70-99) Calcium Level 7.6 mg/dL (8.5-10.1) Test 04/04/17 07:54 04/04/17 08:57 Glucose (Fingerstick) 60 mg/dL (70-99) 71 mg/dL (70-99) Meds Current Medications Dextrose 1,000 ml @ 50 mls/hr Q20H IV Last administered on 04/04/17 07:57; Start 04/04/17 at 07:45 Dextrose (Dextrose 50%-Water Syringe) 12.5 gm PRN Q15MIN PRN IV SEE COMMENTS Last administered on 04/04/17 05:58; Start 04/03/17 at 20:15 Assessment Assessment .Assessment: Hypernatremia 1. UTI complicated/sepsis with h/o chronic keys for urine retention 2. acute metabolic encephalopathy with underlying Alzheimer dementia 3. ARF JOCELYNE VMN dehydration with underlying CKD II 4. acute hypernatremia 5. acute hypokalemia 6. HTN 7. Alzheimer dementia 8. urine retention with chronic indwelling keys 9. COPD 10. chronic moderate malnutrition 11. seizure disorder 12. GERD 13. Peripheral neuropathy 14. PVD 15. CKD II 16. OA generalized 17. anemia chronic disease 18. depression 19. hyperlipidemia 20. chronic constipation PLAN: continue ProcalAmine UTI sepsis - zosyn continnues - Renal sono 03/29 no hydronephrosis -WBC 6.2 ARF - BUN/Cr 37/0.7 resolved hypokalemia - better hypernatremia -Na 143- resolved. Anemia - Hgb 9.9 -monitor malnutrition - PPN 60cc/hr diarrhea - small amount liquid dark green stool continue current plan of care urine c/s -neg Prognosis is very poor. Acute metabolic encephalopathy- not responsive. Consult palliative care. Hypokalemia- replace Kcl. Hypoglycemia- likely due to multiorgan failure and sepsis.she is not on any hypoglycemic agents. D/w palliative care.son is agrreable to send her back [place] with hospice. Unable to reach sister who may be the DPOA.Son is not able to reach her either. Palliative care will try to reach her daughter and if ok then discharge her to [place] with hospice. She is terminally ill. Plan Plan For more details regarding further plans, please refer to the orders. Nutrition Consultation Dietary Evaluation: Recommendations by RD: PPN/TPN Comments: extended days on ppn/ clears - adv diet as tolerated REC mvi, vit c per wound protocal consider TF for nutrition needs Expected Outcomes/Goals: to meet > 75% est nutr needs- protein needs met via ppn, goal ongoing Malnutrition Findings: Body Fat Depletion (Non Severe: Mild Depletion Weight Status: Underweight SARY RAMESH MD Apr 04, 2017 10:07
[2017-04-04 11:00] VITALS: BP 163/77
--- NOTE | 2017-04-17 08:52 | PDOC3 ---
IM DISCHARGE SUMMARY Date of Admission Date of Admission Date of Admission: Mar 26, 2017 at 22:17 Date of Discharge Date of Discharge 04/04/17 Primary Diagnosis Primary Diagnosis 1. UTI complicated/sepsis with h/o chronic keys for urine retention MSOF secondary to sepsis 2. acute metabolic encephalopathy with underlying Alzheimer dementia 3. ARF JOCELYNE VMN dehydration with underlying CKD II 4. acute hypernatremia 5. acute hypokalemia 6. HTN 7. Alzheimer dementia 8. urine retention with chronic indwelling keys 9. COPD 10. chronic moderate malnutrition 11. seizure disorder 12. GERD 13. Peripheral neuropathy 14. PVD 15. CKD II 16. OA generalized 17. anemia chronic disease 18. depression 19. hyperlipidemia 20. chronic constipation 21 h/o traumatic comminuted L femoral intratrochanteric neck fracture post traumatic fall 2014 no surgical intervention 22. severe PCL malnutrition with underlying chronic PCL malnutrition 23. severe weakness and debility 24. dysphagia with Regular diet mechanical soft chopped texture thin liquids Problems: Consults Consults Sofi Araya MD, Dr. Palliative Care Procedures Procedures PICC line 03/29/17 Brief hospital course Brief hospital course This 86 year old fe male who presented with sepsis was admitted. The following is a summary of her treatment: PLAN: 04/04/17 Prognosis is very poor. Acute metabolic encephalopathy- not responsive. Consult palliative care. Hypokalemia- replace Kcl. Hypoglycemia- likely due to multiorgan failure and sepsis.she is not on any hypoglycemic agents. D/w palliative care.son is agrreable to send her back to [place] with hospice. Unable to reach sister who may be the DPOA.Son is not able to reach her either. Palliative care will try to reach her daughter and if ok then discharge her to [place] with hospice. She is terminally ill. 04/03/17 Prognosis is very poor. Acute metabolic encephalopathy- not responsive. Consult palliative care. Hypokalemia- replace Kcl. 04/02/17 continue ProcalAmine UTI sepsis - zosyn continnues - Renal sono 03/29 no hydronephrosis -WBC 6.2 ARF - BUN/Cr 37/0.7 resolved hypokalemia - better hypernatremia -Na 143- resolved. Anemia - Hgb 9.9 -monitor malnutrition - PPN 60cc/hr diarrhea - small amount liquid dark green stool continue current plan of care urine c/s -neg 04/01/17 Labs are improving ,NA 140 now NA 140 down from 160. continue ProcalAmine and D5W UTI sepsis - zosyn continnues - Renal sono 03/29 no hydronephrosis -WBC 6.2 ARF - BUN/Cr 37/0.7 resolved hypokalemia - resolved K 3.5 - [id number] 60cc/hr hypernatremia - Na 150 -slowly improving PPN 60cc/hr D5 40K 60cc/hr Anemia - Hgb 9.9 -monitor malnutrition - PPN 60cc/hr diarrhea - small amount liquid dark green stool continue current plan of care urine c/s -neg 03/31/17 NA 150 down from 160. continue ProcalAmine and D5W UTI sepsis - zosyn continnues - Renal sono 03/29 no hydronephrosis -WBC 6.2 ARF - BUN/Cr 37/0.7 resolved hypokalemia - resolved K 3.5 - [id number] 60cc/hr hypernatremia - Na 150 -slowly improving PPN 60cc/hr D5 40K 60cc/hr Anemia - Hgb 9.9 -monitor malnutrition - PPN 60cc/hr diarrhea - small amount liquid dark green stool continue current plan of care urine c/s -neg 03/30/17 UTI sepsis - zosyn continnues - Renal sono 03/29 no hydronephrosis -WBC 6.2 ARF - BUN/Cr 37/0.7 resolved hypokalemia - resolved K 3.5 - [id number] 60cc/hr hypernatremia - Na 162 -slowly improving PPN 60cc/hr D5 40K 60cc/hr Anemia - Hgb 9.9 -monitor malnutrition - PPN 60cc/hr diarrhea - small amount liquid dark green stool continue current plan of care 03/29/17 UTI sepsis - zosyn continues - moderate R hydronephrosis per CT - WBC 10.2 improved - keys leaking changed to #[id number] last evening ARF - improving BUN/Cr 41/0.9 hypernatremia - unchanged - NA on admit 169 today 170 D5W 40KCL 75cc/hr to be started hypokalemia - K 3.3 - will need KCL replacement - PICC line pending - IV present but tenuous stability - D5W 40KCL 75cc/hr to be started anemia - Hgb 10.2 abnormal CXR - CT chest revealed non calcified nodule chronic, benign - no further workup malnutrition - PPN 100cchr 03/28/17 UTI sepsis - Zosyn IV -culture pending - BC negative ARF - BUN/Cr 46/1.1 - improving - acute metabolic encephalopathy - minimal improvement - not taking po meals/meds severe malnutrition - not eating - PPN 100cc/hr anemia - chronic Admit Hgb 13.2 today 11.5 - drop secondary to rehydration abnormal CXR - L basilar nodule? - CT chest w/o contrast For further plan of care, please refer to the orders. 03/27/17 UTI/sepsis - Admit WBC 12.5 - LA 2.3 decreased to 2.1 - Rocephin IV daily - ID consult - CBC pending ARF - IV NS in ED - decreased to NS 100cc/hr acute hypernatremia/hypokalemia - Admit NA 167 K 2.9 - NS IV - 40K per IVF x 1 - BMP pending - current IV NS 100cc/hr and 40KCL added - nephrology consult acute encephalopathy due to ARF/UTI chronic urine retention with chronic indwell keys - continue -changed in ER malnutrition - clear liquids - advance diet as tolerated seizure - keppra and depakote changed to IV. DVT/GI prophylaxis - SCD/CAITLIN Pepcid For more details regarding further plans, please refer to the orders. For more details regarding the past history, family history, social history, surgical history and other details, please refer to History and Physical. Medications Medications reviewed and reconciled for discharge. Allergy Allergies Coded Allergies Type Severity Reaction Last Updated Verified I S O L A T I O N *CONTACT* Allergy Unknown 04/01/15 Yes No Known Medication Allergies Allergy Unknown 04/01/15 Yes Follow up Admit to facility DISPOSITION: Home ([facility] with hospice ) Comments Discharge Management - 35 minutes. For other details please refer to discharge instructions MYA TOVAR APRN Apr 17, 2017 08:52
== END 2017-04-04 15:30 | disposition hospice, inpatient (51) | DRG 871 ==
LOC: ER 18:51 → 5 SOUTH 22:17
PROVIDERS: ADMIT Internal Medicine; ATTEND Internal Medicine
PROC: 02HV33Z Insertion of Infusion Device into Superior Vena Cava, Percutaneous Approach (ICD-10-PCS; principal; 2017-03-29)
PROC: B548ZZA Ultrasonography of Superior Vena Cava, Guidance (ICD-10-PCS; 2017-03-29)
DX: A41.9 Sepsis, unspecified organism (principal); E43 Unspecified severe protein-calorie malnutrition; N17.0 Acute kidney failure with tubular necrosis; G93.41 Metabolic encephalopathy; E87.0 Hyperosmolality and hypernatremia; D63.8 Anemia in other chronic diseases classified elsewhere; G30.9 Alzheimer's disease, unspecified; G62.9 Polyneuropathy, unspecified; R13.10 Dysphagia, unspecified; F02.80 Dementia in other diseases classified elsewhere, unspecified severity, without behavioral disturbance, psychotic disturbance, mood disturbance, and anxiety; N39.0 Urinary tract infection, site not specified; Z51.5 Encounter for palliative care; E86.0 Dehydration; M19.90 Unspecified osteoarthritis, unspecified site; E78.5 Hyperlipidemia, unspecified; F41.9 Anxiety disorder, unspecified; J45.909 Unspecified asthma, uncomplicated; E87.6 Hypokalemia; E16.2 Hypoglycemia, unspecified; G40.909 Epilepsy, unspecified, not intractable, without status epilepticus; F31.9 Bipolar disorder, unspecified; H40.9 Unspecified glaucoma; I12.9 Hypertensive chronic kidney disease with stage 1 through stage 4 chronic kidney disease, or unspecified chronic kidney disease; N18.2 Chronic kidney disease, stage 2 (mild); I73.9 Peripheral vascular disease, unspecified; J44.9 Chronic obstructive pulmonary disease, unspecified; K21.9 Gastro-esophageal reflux disease without esophagitis; K59.09 Other constipation; Z87.440 Personal history of urinary (tract) infections; Z90.710 Acquired absence of both cervix and uterus; Z86.14 Personal history of Methicillin resistant Staphylococcus aureus infection
CPT/HCPCS: 36415; 36569; 71010; 71250; 76770; 76937; 77001; 80048; 80053; 81001; 82962; 83605; 83735; 84100; 85025; 87040; 87086; 87641; 93005; 94640; 94760; 96365; 96368; C1751; C1769; C1892; J0690; J1953; J2543; J3480; J7030; J7040; J7042; J7120; J7613; Q9967; S0028; 99285-25